=== PATIENT | female | born 1985 | race Caucasian/White ===

== ENCOUNTER 2023-05-06 11:17 | Emergency (ER) | payer MEDICAID, SELFPAY ==
--- NOTE | ~2023-05-06 | XR_ITS ---
EXAMINATION: XR LUMBOSACRAL SPINE CLINICAL INFORMATION: Midline lumbar pain with tender to palpate.. COMPARISON: None available. TECHNIQUE: Three views of the lumbosacral spine. FINDINGS: There is normal lumbar lordosis. The vertebral heights, alignment and disc heights are normal. Is no visible acute fracture, dislocation or subluxation seen. No bony erosive changes. The soft tissues are normal. SI joints are normal. XR/XR lumbar spine 2-3V IMPRESSION: Unremarkable lumbar spine exam.
[2023-05-06 11:27] VITALS: BP 123/76; PULSE 62; RESP 18; TEMP 36; O2SAT 98; BMI 36.5
--- NOTE | 2023-05-06 11:27 | ED_ITS ---
HPI - General Adult General Chief complaint: Back Pain/Injury Stated complaint: back pain Time Seen by Provider: 05/06/23 11:52 Source: patient Mode of arrival: ambulatory Limitations: no limitations History of Present Illness HPI narrative: 38 year old female with pmhx of IVDU on methadone presents to the ED today for evaluation of low back pain x4 days. Reports history of chronic low back pain. Reports worsening pain to her lower back over the last 4 days with radiation upward. Pain is worse with bending forward. Denies recent injury or trauma to the back. Denies fever, chills, chest pain or shortness of breath, nausea/vomiting, numbness/tingling/weakness of the lower extremities, saddle anesthesia, bowel or bladder incontinence or retention, dysuria, hematuria, abdominal pain or flank pain. Denies chronic steroid use. Related Data Previous Rx's Medication Instructions Recorded cyclobenzaprine 5 mg tablet 5 mg PO BEDTIME PRN muscle spasm 05/06/23 #7 tabs lidocaine 5 % topical patch 1 patch topical DAILY #15 ea 05/06/23 (Lidoderm) naproxen 500 mg tablet 500 mg PO Q8-12H PRN pain (scale 05/06/23 score 4-6) #14 tabs Allergies Allergy/AdvReac Type Severity Reaction Status Date / Time aripiprazole [From ABILIFY] Allergy Unknown SWELLING Verified 05/06/23 11:27 lamotrigine [From LAMICTAL] Allergy Unknown UNKNOWN Verified 05/06/23 11:27 Review of Systems Review of Systems: Constitutional: No fever, chills, fatigue, night sweats, weight changes ENT/Mouth: No ear pain, hearing loss, nasal congestion, sinus pain, rhinorrhea, sore throat Eyes: No eye pain, swelling, redness, vision changes, discharge Cardio: No chest pain, palpitations, FIGUEROA, orthopnea, peripheral edema Pulm: No SOB, cough, sputum, wheezing, dyspnea, hemoptysis GI: No nausea, vomiting, hematemesis, abdominal pain, diarrhea, constipation, hematochezia, melena : No irregular bleeding, dysuria, frequency, urgency, hesitancy, hematuria, flank pain, urinary flow changes, urinary incontinence or retention MSK: +back pain, No neck pain, joint pain, myalgias Skin: No lesions, rashes Neuro: No weakness, numbness, paresthesias, LOC, dizziness, headache All other systems reviewed and are negative. [facility], [facility] Past Medical History Attestation statement: The following information was validated with the patient. Source: old records reviewed and nursing notes reviewed Social History Social History Unable to assess alcohol history related to: Unknown Use of substances other than those prescribed or required for medical reasons: Unknown Advance Directives: No Advance Directives Information Provided: No Physical Exam ED Vital Signs: Vital Signs - 24 hr 05/06/23 11:27 Temperature 96.8 F Pulse Rate 62 Respiratory Rate 18 Blood Pressure 123/76 Pulse Oximetry 98 Oxygen Delivery Method Room Air BMI result Body Mass Index 36.5 Vital signs stable, afebrile Const General: cooperative, healthy appearing, comfortable, no acute distress, alert and awake Nutritional Appearance: overweight Orientation/consciousness: patient oriented x3 Limitations: no limitations HENMT Head: Yes normal to inspection Ears: hearing grossly normal bilaterally Eyes General: appearance normal, both eyes and all related structures Conjunctivae: conjunctivae normal Sclerae: sclerae normal Pupils: Equal, round and reactive pupils present EOM: EOMs intact bilaterally Neck Neck: Yes normal visual inspection, Yes full ROM and Yes no lymphadenopathy Resp Effort & Inspection: normal respiratory effort Auscultation: clear to auscultation bilaterally Cardio Rate: regular rate Rhythm: regular rhythm Peripheral pulses: radial pulses present, posterior tibial pulses present and dorsalis pedis present GI Inspection: Yes normal to inspection Palpation (GI): Soft to palpation and nontender General: Yes no CVA tenderness Back/Spine/Pelvis Other: No overlying skin changes. No palpable warmth or masses. No midline spinous tenderness. + right lumbar paraspinal muscle tenderness to palpation. No step off deformity. Back: no CVA tenderness Skin General skin exam: no rashes or lesions noted Neuro Other: Strength 5/5 intact throughout.? No saddle anesthesia.? Sensation intact to light touch.?NV intact distally.? General: patient oriented x3, gait normal and moves all extremities Cranial nerves: Yes Equal, round and reactive pupils present Gait exam (Neuro): Normal gait present Motor exam (neuro): 5/5 motor strength present throughout Deep tendon reflexes (DTR's): Right patellar reflex intensity grade: 2+ and Left patellar reflex intensity grade: 2+ Pupils: Normal pupillary reactivity/response: bilateral Extrem General: Yes normal to inspection and Yes full ROM Course Course Course Narrative: RME- 38 year old female presents for evaluation of lower back pain. She denies any specific injury. Reports a history of back pain. Her pain is worse with movement. She has been taking Ibuprofen without relief. She cannot take acetaminophen due to a history of Hepatitis C. Plan for x-ray of lumbar spine as patient denies ever having had one done. Reevaluation(s) Reevaluation #1: 1533-- Patient reports pain improvement with Lidoderm patch and muscle relaxer. X-ray lumbar spine without acute fracture or subluxation. Patient's symptoms are likely due to an MSK sprain/strain. Will send her home with naproxen, Lidoderm patch and Flexeril. Patient has remained stable throughout ED visit today. Discussed strict return precautions. All questions answered at this time. She is currently on the phone with her ride as she received Flexeril and will not be able to drive home today. Patient is agreeable with disposition and stable for discharge. Medications Administered Discontinued Medications Generic Name Dose Route Start Last Admin Trade Name Freq PRN Reason Stop Dose Admin Cyclobenzaprine HCl 5 mg 05/06/23 12:42 05/06/23 12:56 Cyclobenzaprine Hcl 5 Mg Tablet PO 05/06/23 12:43 5 mg ONCE ONE Administration Ketorolac Tromethamine 60 mg 05/06/23 12:42 05/06/23 12:56 Ketorolac Tromethamine 60 Mg/2 Ml Vial IM 05/06/23 12:43 60 mg ONCE ONE Administration Lidocaine 1 patch 05/06/23 12:42 05/06/23 12:56 Lidocaine 4 % Patch Adh..Patch TRANSDERMA 05/06/23 12:43 1 patch ONCE ONE Administration Protocol Medical Decision Making Medical Decision Making MDM Narrative: 38 year old female with pmhx of IVDU on methadone presents to the ED today for evaluation of low back pain x4 days. Vital signs are stable, afebrile, not tachycardic. Patient is nontoxic appearing and in no acute distress. Lungs CTA bilaterally. There is no midline spinous tenderness or step-off deformity. There is right lumbar paraspinal muscle tenderness to palpation. No overlying erythema, warmth, masses. Exam nonfocal. Neurovascularly intact distally. Patellar tendon reflexes 2+ bilaterally. sensation intact to light touch throughout. Clinical concern for MSK sprain/strain, fracture, subluxation, disc herniation. Unlikely epidural abscess, cauda equina, cord compression, neurovascular compromise, trauma, ACS, dissection, nephrolithiasis. Differential Diagnosis Differential Diagnoses: The differential diagnosis associated with the presentation includes as above. Admission/Observation not indicated. Independent Interpretation I performed an independent interpretation of an: Plain X-Ray Interpretation: X-ray lumbar spine without acute fracture dislocation, agree with radiologist's interpretation. Radiology Impression Discussion of test interpretation with radiology: I have reviewed the radiologist's reading. Radiologist Impression: XR lumbar spine 2-3V IMPRESSION: Unremarkable lumbar spine exam. External Record Review External record reviewed: Inpatient record Tests considered The following testing was considered but not selected: Considered obtaining CT lumbar spine however there is no point tenderness over the midline spine, no palpable warmth or mass, patient is afebrile, not tachycardic, epidural abscess unlikely. Prescription Management I considered prescription management with: Pain Medication and Other (Muscle relaxer) Chronic Conditions Patient?s care impacted by: Other (IV drug use) Social Determinants Patient?s care significantly limited by Social Determinants of Health including: Other Social Determinant of Health Critical Care Time Critical Care Time Critical Care Time: No Discharge Plan Discharge Clinical Impression: Strain of lumbar region Patient Disposition: Home, Self-Care Instructions: Muscle Strain (ED), Back Pain (ED) Additional Instructions: The xray of your low back did not show acute fracture. Your pain is likely musculoskeletal. Avoid bending, lifting, or twisting. Use ice several times per day for 20 minutes at a time for the next 48 hours and then change to heat. Flexeril is a muscle relaxer. Take this at night as it makes you drowsy. Do not drive, drink alcohol, or operate machinery while taking it. Naproxen is an anti-inflammatory / pain medication. Take with food. Do not take this with Ibuprofen or other NSAIDs as this may cause increased risk of GI bleed. Lidoderm patches are numbing patches. Apply to painful areas. In addition you may take Tylenol at home. Follow up with your primary care provider as needed If your pain worsens, if you develop new numbness, tingling, weakness, loss of bowel or bladder function call 911 or return to the ER immediately for evaluati on. Prescriptions: New cyclobenzaprine 5 mg tablet 5 mg PO BEDTIME PRN (Reason: muscle spasm) Qty: 7 0RF lidocaine [Lidoderm] 5 % adhesive patch,medicated 1 patch topical DAILY Qty: 15 0RF Rx Instructions: leave on most painful area for up to 12 hrs naproxen 500 mg tablet 500 mg PO Q8-12H PRN (Reason: pain (scale score 4-6)) Qty: 14 0RF Referrals: Physician,Unknown J [Primary Care Provider] - Stand Alone Forms: Work/School Release Interventions: ED Discharge Assessment Last Done: 05/06/23 15:45 Discharge Date/Time: 05/06/23 15:46
--- OUTSIDE RECORDS SUMMARY | 2023-05-06 11:45 | XMS_ITS | Continuity of Care Document ---
Author Name Unknown Organization [facility] Address [address] [place] [id number]- Care Team Providers Care Regional Planner Name Role Phone Estelita Lombardi MD, Colt Primary Care Phys [facility] Encounter [facility] [place] Date(s): 09/10/19 - 09/17/[address] [address]- [facility] Attending Physician: Ebony Mayorga DO Admitting Physician: Farzaneh Bejarano CNM Referring Physician: Colt Barrera MD Allergies, Adverse Reactions, Alerts Substance Reaction Severity Status Fish Rash Persistent Moderate Active Abilify Active LaMICtal Active Immunizations Given and Recorded Vaccine Date Status Refusal Reason influenza virus vaccine, inactivated 07/04/19 Give n Not Given Vaccine Date Status Refusal Reason influenza virus vaccine, inactivated 03/07/14 Not Given Patient Refuses pneumococcal 23-valent vaccine 09/13/17 Not Given Parent Or Guardian Refuses pneumococcal 23-valent vaccine 03/07/14 Not Given Patient Refuses Medications aspirin 81 mg oral tablet See Instructions, 2 tablet By Mouth Daily at bedtime, # 60 tablet, 3 Refills, Maintenance, 09/09/2012:11:00 EDT, [id number], 163, cm, 09/10/19 13:04:00 EDT, Height, 84.5, kg,06/19/19 14:03:00 EST, Dry Weight Start Date: 09/10/19 Status: Ordered Classic oral tablet 1 tablet, By Mouth, Daily, # 30 tablet, 0 Refills, Maintenance, 04/17/19 19:16:18 EST Start Date: 04/17/19 Status: Ordered Colace sodium 100 mg oral capsule 100 mg, 1, capsule, By Mouth, 2 times a day, PRN, # 180 capsule, Refills 3, Tot. Refills 3, Maintenance, for constipation, 09/04/19 13:06:00 EDT, Route to Pharmacy Electronically, [facility]-[id number], 163, cm, 08/13/19 14:46:00 EDT, Hei... Start Date: 09/04/19 Status: Ordered Docusate 0 Refills, Maintenance, 09/04/18 18:15:51 EDT Start Date: 09/04/18 Status: Ordered docusate sodium 100 mg oral tablet 1 tablet = 100 mg, By Mouth, 2 times a day, PRN for constipation, # 60 tablet, 0 Refills, Maintenance, 07/04/19 16:19:00 EST, Tablet, [facility] #[id number], 163, cm, 07/04/19 15:29:00 EST, Height, 84.5, kg, 06/19/19 14:03:00 EST, Dry Weight Start Date: 07/04/19 Status: Ordered Macrobid macrocrystals-monohydrate 100 mg oral capsule 1 capsule = 100 mg, By Mouth, 2 times a day, for 14 days, # 28 capsule, 0 Refills, Acute 09/18/19 13:34:00 EDT, 09/04/19 13:34:00 EDT, Capsule, [facility]-[id number], 163, cm, 08/13/19 14:46:00 EDT, Height, 84.5, kg, 06/19/19 14:03:00 EST... Start Date: 09/04/19 Stop Date: 09/18/19 Status: Ordered Metamucil 3.4 gm/5.2 gm oral powder for reconstitution = 3.4 Gm, By Mouth, 3 times a day, PRN as needed for constipation, # 1,042 Gm, 1 Refills, Maintenance, 07/04/19 16:20:00 EST, REC Powder, [facility] #[id number], 163, cm, 07/04/19 15:29:00 EST, Height, 84.5, kg, 06/19/19 14:03:00 EST, Dry Weight Start Date: 07/04/19 Status: Ordered Methadone = 105 mg, By Mouth, Daily, 0 Refills, Maintenance, 09/13/18 15:28:27 EDT, Tablet Start Date: 09/13/18 Status: Ordered prazosin 5 mg oral capsule 5 mg, 1, capsule, By Mouth, Daily at bedtime, # 30 capsule, Refills 0, Tot. Refills 0, Maintenance,05/16/19 9:07:00 EST, Route to Pharmacy Electronically, [facility] #[id number], 163, cm, 05/16/19 8:38:00 EST, Height, 82.3, kg, 05/05/19 16:01:00... Start Date: 05/16/19 Stop Date: 06/15/19 Status: Ordered SEROquel 100 mg oral tablet 100 mg, 1, tablet, By Mouth, 2 times a day, In morning and at 5 p.m., # 60 tablet, Refills 0, Tot. Refills 0, Maintenance, 05/31/19 16:04:00 EST, Route to Pharmacy Electronically, [facility][id number], 162, cm, 05/21/19 12:08:00 EST, Height, 82.... Start Date: 05/31/19 Stop Date: 06/30/19 Status: Ordered SEROquel 200 mg oral tablet 200 mg, 1, tablet, By Mouth, Daily at bedtime, # 30 tablet, Refills 0, Tot. Refills 0, Maintenance,05/31/19 16:05:00 EST, Route to Pharmacy Electronically, [facility] #[id number], 162, cm, 05/21/19 12:08:00 EST, Height, 82.5, kg, 05/21/19 12:08:0... Start Date: 05/31/19 Stop Date: 06/30/19 Status: Ordered Problem List Condition Effective Dates Status Health Status Inform ant Bipolar disorder(Confirmed) Active Constipation(Confirmed) Active H/O Depression(Confirmed) Active Fibromyalgia(Confirmed) Active History of posttraumatic str ess disorder (PTSD)(Confirmed) Active History of varicella as a child(Confirmed) Active Methadone maintenance treatm ent affecting (Confirmed) 1 Active Normal vaginal Papanicolaou smear(Confirmed) 2014 Active Opiate dependence(Confirmed) 2 Active (Confirmed) Active Suicidal ideation(Confirmed) 3 Active Hepatitis C(Confirmed) Active 1Pt currently in treatment staying at [facility] and has been placed on Methadone 105mg daily. 2Hx of multiple admissions for detox/substance abuse 3Hx of self-harming behaviors Vital Signs Most recent to oldest [Reference Range]: 1 Height 163 cm (09/10/19 1:04 PM) Social History Social History Type Response Smoking Status Current every day dayne guzman entered on: 03/03/14 Sex Female
--- OUTSIDE RECORDS SUMMARY | 2023-05-06 11:45 | XMS_ITS | Continuity of Care Document ---
Author Name Unknown Organization [facility] Address [address] [place] [id number]- Care Team Providers Care Telemarketing Sales Representative Name Role Phone Estelita Lombardi MD, Col[facility] [place] [place] Date(s): 01/20/23 - 01/20/[address] [address]- Discharge Disposition: A-D/C Walkout Attending Physician: Not on Staff, Attending MD Admitting Physician: Not on Staff, Admitting MD Referring Physician: Not on Staff, Referring MD Allergies, Adverse Reactions, Alerts Substance Reaction Severity Status Fish Rash Persistent Moderate Active Abilify Active LaMICtal Active Immunizations Given and Recorded Vaccine Date Status Refusal Reason tetanus/diphtheria/pertussis, acel(Tdap) 10/11/19 Given influenza virus vaccine, inactivated 07/04/19 Give n Medications acetaminophen 325 mg oral tablet 650 mg, By Mouth, Every 4 hours, PRN, Patient should only receive a total of 650mg of Acetaminophenevery 4 hours., # 30 tablet, Refills 0, Tot. Refills 0, Maintenance, Pain , Mild, 11/24/19 9:50:00 EDT, Route to Pharmacy Electronically, [facility]... Start Date: 11/24/19 Status: Ordered aspirin 81 mg oral tablet See Instructions, 2 tablet By Mouth Daily at bedtime, # 60 tablet, 3 Refills, Maintenance, 09/09/2012:11:00 EDT, [facility]-[id number], 163, cm, 09/10/19 13:04:00 EDT, Height, 84.5, [...] 09/04/19 13:06:00 EDT, Route to Pharmacy Electronically, [facility], 163, cm, 08/13/19 14:46:00 EDT, Hei... Start Date: 09/04/19 Status: Ordered Docusate 0 Refills, Maintenance, 09/04/18 18:15:51 EDT Start Date: 09/04/18 Status: Ordered docusate sodium 100 mg oral tablet 1 tablet = 100 mg, By Mouth, 2 times a day, PRN for constipation, # 60 tablet, 0 Refills, Maintenance, 07/04/19 16:19:00 EST, [facility], [id number], 163, cm, 07/04/19 15:29:00 EST, Height, 84.5, kg, 06/19/19 14:03:00 EST, Dry Weight Start Date: 07/04/19 Status: Ordered doxycycline monohydrate 100 mg oral capsule 1 capsule = 100 mg, By Mouth, Every 12 hours, for 10 days, # 20 capsule, 0 Refills, Acute 01/28/23 13:45:00 EDT, 01/18/23 13:45:00 EDT, Capsule, [facility] #[id number], Partial fill upon patientrequest if the prescription is for a schedule II op... Start Date: 01/18/23 Stop Date: 01/28/23 Status: Ordered ibuprofen 400 mg oral tablet 800 mg, 2, tablet, By Mouth, 3 times a day, PRN, # 120 tablet, Refills 0, Tot. Refills 0, Maintenance, for fever, 01/18/23 13:46:00 EDT, Route to Pharmacy Electronically, [facility] #[id number],Partial fill upon patient request if the prescripti... Start Date: 01/18/23 Status: Ordered ibuprofen 800 mg oral tablet 800 mg, 1, tablet, By Mouth, Every 8 hours, PRN, Patient should only receive a total of 800mg of Ibuprofen every 8 hours., # 30 tablet, Refills 0, Tot. Refills 0, Maintenance, Pain , Moderate, 11/24/19 9:50:00 EDT, Route to Pharmacy Electronically, [facility]... Start Date: 11/24/19 Status: Ordered Metamucil 3.4 gm/5.2 gm oral powder for reconstitution = 3.4 Gm, By Mouth, 3 times a day, PRN as needed for constipation, # 1,042 Gm, 1 Refills, Maintenance, 07/04/19 16:20:00 EST, REC Powder, [facility] #[id number], 163, cm, 07/04/19 15:29:00 EST, Height, 84.5, kg, 06/19/19 14:03:00 EST, Dry Weight Start Date: 07/04/19 Status: Ordered Methadone = 175 mg, By Mouth, Daily, 0 Refills, Maintenance, 09/13/18 15:28:27 EDT, Tablet Start Date: 09/13/18 Status: Ordered Ortho Micronor 0.35 mg oral tablet 1 tablet = 0.35 mg, By Mouth, Daily, # 28 tablet, 2 Refills, Maintenance, 11/24/19 8:56:00 EDT, Tablet, [facility] #[id number], 162, cm, 11/23/19 4:48:00 EDT, Height, 80.3, kg, 11/22/19 4:59:00 EDT, Dry Weight Start Date: 11/24/19 Status: Ordered prazosin 5 mg oral capsule 5 mg, 1, capsule, By Mouth, Daily at bedtime, # 30 capsule, Refills 0, Tot. Refills 0, Maintenance,05/16/19 9:07:00 EST, Route to Pharmacy Electronically, [facility] #[id number], 163, cm, 05/16/19 8:38:00 EST, Height, 82.3, kg, 05/05/19 16:01:00... Start Date: 05/16/19 Stop Date: 06/15/19 Status: Ordered SEROquel 100 mg oral tablet 100 mg, 1, tablet, By Mouth, 2 times a day, In morning and at 5 p.m., # 60 tablet, Refills 0, Tot. Refills 0, Maintenance, 05/31/19 16:04:00 EST, Route to Pharmacy Electronically, [facility][id number], 162, cm, 05/21/19 12:08:00 EST, Height, 82.... Start Date: 05/31/19 Stop Date: 06/30/19 Status: Ordered SEROquel 200 mg oral tablet 200 mg, 1, tablet, By Mouth, Daily at bedtime, # 30 tablet, Refills 0, Tot. Refills 0, Maintenance,05/31/19 16:05:00 EST, [id number], 162, cm, 05/21/19 12:08:00 EST, Height, 82.5, kg, 05/21/19 12:08:0... Start Date: 05/31/19 Stop Date: 06/30/19 Status: Ordered Problem List Condition Confirmation Course Effective Dates Status H ealth Status Informant Bipolar disorder Confirmed Active Constipation Confirmed Active H/O Depression Confirmed Active History of posttraumatic stress disorder (PTSD) Confirmed Active History of varicella as a child Confirmed Active Methadone maintenance treatment affecting 1 Confirmed Active Normal vaginal Papanicolaou smear Confirmed 2015 Active Opiate dependence 2 Confirmed Active Suicidal ideation 3 Confirmed Active Hepatitis C Confirmed Active 1Pt currently in treatment staying at [facility] and has been placed on Methadone 105mg daily. 2Hx of multiple admissions for detox/substance abuse 3Hx of self-harming behaviors Vital Signs Most recent to oldest [Reference Range]: 1 2 Height 163 cm (01/20/23 8:44 AM) Oxygen Saturation [94-100 %] 97 % (01/20/23 10:45 AM) 99 % (01/20/23 8:44 AM) Pulse Rate [55-90 bpm] 77 bpm (01/20/23 10:45 AM) 86 bpm (01/20/23 8:44 AM) Blood Pressure [90-138/55-84 mm Hg] 130/ 87mm Hg (01/20/23 10:45 AM) 132/103mm Hg (01/20/23 8:44 AM) Respiratory Rate [16-30 br/min] 16 br/mi n (01/20/23 10:45 AM) 16 br/min (01/20/23 8:44 AM) Temperature [96.8-100.4 DegF] 98.1 DegF (01/20/23 10:45 AM) 98.1 DegF (01/20/23 8:44 AM) Mode of Delivery (Oxygen) Room air (01/20/23 10:45 AM) Room air (01/20/23 8:44 AM) Blood pressure sites Arm, left (01/20/23 10:45 AM) Arm, left (01/20/23 8:44 AM) Temperature Route Oral (01/20/23 10:45 AM) Oral (01/20/23 8:44 AM) Dry Weight 100 kg (01/20/23 8:44 AM) Dry Weight Obtained Via Patient/family s tated (01/20/23 8:44 AM) Social History Social History Type Response Smoking Status Current every day dayne megan entered on: 03/03/14 Sex Female Patient Care team information Care Team Personnel Name: Colt Barrera MD Position: [facility] Outreach Member Role: PCP Address: Address: [address] [place] [id number]- Name: Ramona Boyce RN Position: [facility] RN Member Role: Primary Care Nurse Name: Serenity Mina RN Position: [facility] RN Member Role: Primary Care Nurse Name: Jd Calles RN Position: [facility] SN RN Member Role: Primary Care Nurse Name: Arline Jordan RN Position: S RN Member Role: Primary Care Nurse Name: Marcelo FREEMAN Gifty Position: [facility] RN Member Role: Primary Care Nurse Name: Erasmo Ponce NP Position: Reference Physician Member Role: Primary Care Nurse Address: Address: [address] [facility] [address] Clinical [facility] [place] [address]- [place] Name: Sharon Matthews RN Position: [facility] OB RN Member Role: Primary Care Nurse Name: Roula Coppola RN Position: [facility] SN RN Member Role: Primary Care Nurse Name: Yuni Duenas RN Position: S RN Member Role: Primary Care Nurse Care Team Related Persons Name: TALON CHAPA Address: home [address] [place] [address] Name: WILLIAM TORRES Address: home [address] [place] [address] Name: MALISSA TORRES Address: [employer] Address: home [address] [address] [place] [address] [place] Name: ARETHA MCCARTHY Address: home [address] [place] [address]
--- OUTSIDE RECORDS SUMMARY | 2023-05-06 11:45 | XMS_ITS | Continuity of Care Document ---
Author Name Unknown Organization [facility] ter Address [address] [place] [id number]- Care Team Providers Care Production Engineer Name Role Phone Not on Staff, PCP Primary Care Physician Unavail able Encounter [facility] Date(s): 06/19/19 - 06/19/[address] [address]- [facility] Discharge Disposition: A-D/C Home Attending Physician: Concepcion Marie MD Admitting Physician: Concepcion Marie MD Referring Physician: Concepcion Marie MD Allergies, Adverse Reactions, Alerts Substance Reaction Severity Status Fish Rash Persistent Moderate Active Abilify Active LaMICtal Active Immunizations Not Given Vaccine Date Status Refusal Reason pneumococcal 23-valent vaccine 09/13/17 Not Given Parent Or Guardian Refuses pneumococcal 23-valent vaccine 03/07/14 Not Given Patient Refuses influenza virus vaccine, inactivated 03/07/14 Not Given Patient Refuses Medications Classic oral tablet 1 tablet, By Mouth, Daily, # 30 tablet, 0 Refills, Maintenance, 04/17/19 19:16:18 EST Start Date: 04/17/19 Status: Ordered Docusate 0 Refills, Maintenance, 09/04/18 18:15:51 EDT Start Date: 09/04/18 Status: Ordered Methadone = 105 mg, By Mouth, Daily, 0 Refills, Maintenance, 09/13/18 15:28:27 EDT, Tablet Start Date: 09/13/18 Status: Ordered prazosin 5 mg oral capsule 5 mg, 1, capsule, By Mouth, Daily at bedtime, # 30 capsule, Refills 0, Tot. Refills 0, Maintenance,05/16/19 9:07:00 EST, Route to Pharmacy Electronically, [facility] #[id number], 163, cm, 05/16/19 8:38:00 EST, Height, 82.3, kg, 05/05/19 16:01:00... Start Date: 05/16/19 Stop Date: 06/15/19 Status: Ordered SEROquel 100 mg oral tablet 100 mg, 1, tablet, By Mouth, 2 times a day, In morning and at 5 p.m., # 60 tablet, Refills 0, Tot. Refills 0, Maintenance, 05/31/19 16:04:00 EST, Route to Pharmacy Electronically, [facility]#[id number], 162, cm, 05/21/19 12:08:00 EST, Height, 82.... Start Date: 05/31/19 Stop Date: 06/30/19 Status: Ordered SEROquel 200 mg oral tablet 200 mg, 1, tablet, By Mouth, Daily at bedtime, # 30 tablet, Refills 0, Tot. Refills 0, Maintenance,05/31/19 16:05:00 EST, Route to Pharmacy Electronically, [facility] #[id number], 162, cm, 05/21/19 12:08:00 EST, Height, 82.5, [...] smear(Confirmed) 2014 Active Opiate dependence(Confirmed) 2 Active Suicidal ideation(Confirmed) 3 Active Hepatitis C(Confirmed) Active 1Pt currently in treatment staying at [facility] and has been placed on Methadone 105mg daily. 2Hx of multiple admissions for detox/substance abuse 3Hx of self-harming behaviors Results Orders for Microbiology Reports Name Date Urine Culture (URINE CULTURE) 06/19/19 Microbiology Reports TEST:Urine Culture STATUS:Unauthenticated BODY SITE: SOURCE:URINE COLLECTED DATE/TIME:06/19/19 2:20 PM Urine Culture SPECIMEN DESCRIPTION : URINE CLEAN CATCH/MIDSTREAM SPECIAL REQUESTS : NONE Reflexed from [id number] REPORT STATUS : PRELIMINARY REPORT Vital Signs Most recent to oldest [Reference Range]: 1 Height 163 cm (06/19/19 2:03 PM) Weight 84.5 kg (06/19/19 2:03 PM) Pulse Rate [55-90 bpm] 95 bpm *H* (06/19/19 2:03 PM) Body Mass Index [18.5-24.99] 31.8 *>HHI* (06/19/19 2:03 PM) Blood Pressure [90-138/55-84 mm Hg] 122/ 70mm Hg (06/19/19 2:03 PM) Respiratory Rate [16-30 br/min] 18 br/mi n (06/19/19 2:03 PM) Temperature [96.8-100.4 DegF] 98.4 DegF (06/19/19 2:03 PM) Blood pressure sites Arm, right (06/19/19 2:03 PM) Temperature Route Oral (06/19/19 2:03 PM) Dry Weight 84.5 kg (06/19/19 2:03 PM) Social History Social History Type Response Smoking Status Current every day dayne guzman entered on: 03/03/14 Sex Female
--- OUTSIDE RECORDS SUMMARY | 2023-05-06 11:45 | XMS_ITS | Continuity of Care Document ---
Author Name Unknown Organization [facility] ter Address [address] [place] [phone]- Care Team Providers Care Er Manager Name Role Phone Estelita Lombardi MD, Colt Primary Care Phys ician [place] [facility] [place] - 10/09/[address] [address]- Discharge Disposition: A-D/C Walkout Attending Physician: Not [...] vaccine 03/07/14 Not Given Patient Refuses Medications acetaminophen 325 mg oral tablet 650 mg, By Mouth, Every 4 hours, PRN, Patient should only receive a total of 650mg of Acetaminophenevery 4 hours., # 30 tablet, Refills 0, Tot. Refills 0, Maintenance, Pain , Mild, 11/24/19 9:50:00 EDT, Route to Pharmacy Electronically, [facility] Start Date: 11/24/19 Status: Ordered aspirin 81 mg oral tablet See Instructions, 2 tablet By Mouth Daily at bedtime, # 60 tablet, 3 Refills, Maintenance, 09/09/2012:11:00 EDT, [facility]-[id number], 163, cm, 09/10/19 13:04:00 EDT, Height, [...] 09/04/19 13:06:00 EDT, Route to Pharmacy Electronically, [facility], 163, cm, 08/13/19 14:46:00 EDT, Hei... Start Date: 09/04/19 Status: Ordered Docusate 0 Refills, Maintenance, 09/04/18 18:15:51 EDT Start Date: 09/04/18 Status: Ordered docusate sodium 100 mg oral tablet 1 tablet = 100 mg, By Mouth, 2 times a day, PRN for constipation, # 60 tablet, 0 Refills, Maintenance, 07/04/19 16:19:00 EST, Tablet, [facility] #[id number], 163, cm, 07/04/19 15:29:00 EST, Height, 84.5, kg, 06/19/19 14:03:00 EST, Dry Weight Start Date: 07/04/19 Status: Ordered ibuprofen 800 mg oral tablet [...] Refills, Maintenance, 07/04/19 16:20:00 EST, REC Powder, [facility] #[id number], 163, cm, 07/04/19 15:29:00 EST, Height, 84.5, kg, 06/19/19 14:03:00 EST, Dry Weight Start Date: 07/04/19 Status: Ordered Methadone = 175 mg, By Mouth, Daily, 0 Refills, Maintenance, 09/13/18 15:28:27 EDT, Tablet Start Date: 09/13/18 Status: Ordered Ortho Micronor 0.35 mg oral tablet 1 tablet = 0.35 mg, By Mouth, Daily, # 28 tablet, 2 Refills, Maintenance, 11/24/19 8:56:00 EDT, Tablet, [facility] #[id number], 162, cm, 11/23/19 4:48:00 EDT, Height, 80.3, kg, 11/22/19 4:59:00 EDT, Dry Weight Start Date: 11/24/19 Status: Ordered prazosin 5 mg oral capsule 5 mg, 1, capsule, By Mouth, Daily at bedtime, # 30 capsule, Refills 0, Tot. Refills 0, Maintenance,05/16/19 9:07:00 EST, Route to Pharmacy Electronically, [facility] #[id number], 163, cm, 05/16/19 8:38:00 EST, Height, 82.3, kg, 05/05/19 16:01:00... Start Date: 05/16/19 Stop Date: 06/15/19 Status: Ordered SEROquel 100 mg oral tablet 100 mg, 1, tablet, By Mouth, 2 times a day, In morning and at 5 p.m., # 60 tablet, Refills 0, Tot. Refills 0, Maintenance, 05/31/19 16:04:00 EST, Route to Pharmacy Electronically, [facility]#[id number], 162, cm, 05/21/19 12:08:00 EST, Height, 82.... Start Date: 05/31/19 Stop Date: 06/30/19 Status: Ordered SEROquel 200 mg oral tablet 200 mg, 1, tablet, By Mouth, Daily at bedtime, # 30 tablet, Refills 0, Tot. Refills 0, Maintenance,05/31/19 16:05:00 EST, Route to Pharmacy Electronically, [facility] #[id number], 162, cm, 05/21/19 12:08:00 EST, Height, 82.5, kg, 05/21/19 12:08:0... Start Date: 05/31/19 Stop Date: 06/30/19 Status: Ordered Problem List Condition Effective Dates Status Health Status Inform ant Bipolar disorder(Confirmed) Active Constipation(Confirmed) Active H/O Depression(Confirmed) Active History of posttraumatic str ess disorder (PTSD)(Confirmed) Active History of varicella as a child(Confirmed) Active Methadone maintenance treatm ent affecting (Confirmed) 1 Active Normal vaginal Papanicolaou smear(Confirmed) 2014 Active Opiate dependence(Confirmed) 2 Active Suicidal ideation(Confirmed) 3 Active Hepatitis C(Confirmed) Active 1Pt currently in treatment staying at [facility] and has been placed on Methadone 105mg daily. 2Hx of multiple admissions for detox/substance abuse 3Hx of self-harming behaviors Vital Signs Most recent to oldest [Reference Range]: 1 2 Oxygen Saturation [94-100 %] 100 % (10/08/20 9:28 PM) 100 % (10/08/20 9:21 PM) Pulse Rate [55-90 bpm] 80 bpm (10/08/20 9:28 PM) 85 bpm (10/08/20 9:21 PM) Blood Pressure [90-138/55-84 mm Hg] 137/ 92mm Hg (10/08/20 9:28 PM) Respiratory Rate [16-30 br/min] 16 br/mi n (10/08/20 9:28 PM) Temperature [96.8-100.4 DegF] 98.3 DegF (10/08/20 9:28 PM) Mode of Delivery (Oxygen) Room air (10/08/20 9:28 PM) Room air (10/08/20 9:21 PM) Blood pressure sites Arm, left (10/08/20 9:28 PM) Temperature Route Oral (10/08/20 9:28 PM) Social History Social History Type Response Smoking Status Current every day dayne guzman entered on: 03/03/14 Sex Female
--- OUTSIDE RECORDS SUMMARY | 2023-05-06 11:45 | XMS_ITS | Continuity of Care Document ---
Author Name Unknown Organization [facility] Address [address] [place] [id number]- Care Team Providers Care Spar Cap Beveler Name Role Phone Estelita Lombardi MD, Colt Primary Care Phys ician Encounter [facility] [place] Date(s): 01/18/23 - 01/18/[address] [address]- Discharge Disposition: A-D/C Home Attending Physician: Gilbert Max MD Admitting Physician: Gilbert Max MD Referring Physician: Not on Staff, Referring [...] 11/24/19 9:50:00 EDT, Route to Pharmacy Electronically, [facility]... Start Date: 11/24/19 Status: Ordered aspirin 81 mg oral tablet See Instructions, 2 tablet By Mouth Daily at bedtime, # 60 tablet, 3 Refills, Maintenance, 09/09/2012:11:00 EDT, [facility]-[id number], 163, cm, 09/10/19 13:04:00 EDT, Height, 84.5, [...] 09/04/19 13:06:00 EDT, Route to Pharmacy Electronically, [facility]201[facility], 163, cm, 08/13/19 14:46:00 EDT, Hei... Start Date: 09/04/19 Status: Ordered Docusate 0 Refills, Maintenance, 09/04/18 18:15:51 EDT Start Date: 09/04/18 Status: Ordered docusate sodium 100 mg oral tablet 1 tablet = 100 mg, By Mouth, 2 times a day, PRN for constipation, # 60 tablet, 0 Refills, Maintenance, 07/04/19 16:19:00 EST, Tablet, [facility] #[id number], 163, cm, 07/04/19 15:29:00 EST, Height, 84.5, kg, 06/19/19 14:03:00 EST, Dry Weight Start Date: 07/04/19 Status: Ordered doxycycline monohydrate 100 mg oral capsule 1 capsule = 100 mg, By Mouth, Every 12 hours, for 10 days, # 20 capsule, 0 Refills, Acute 01/28/23 13:45:00 EDT, 01/18/23 13:45:00 EDT, Capsule, [facility] #[id number], Partial fill upon patientrequest if the prescription is for a schedule II op... Start Date: 01/18/23 Stop Date: 01/28/23 Status: Ordered ibuprofen 400 mg oral tablet 800 mg, 2, tablet, By Mouth, 3 times a day, PRN, # 120 tablet, Refills 0, Tot. Refills 0, Maintenance, for fever, 01/18/23 13:46:00 EDT, Route to Pharmacy Electronically, [facility] #[id number],Partial fill upon patient request if the prescripti... [...] Refills, Maintenance, 07/04/19 16:20:00 EST, REC Powder, [facility] #[id number], 163, cm, 07/04/19 15:29:00 EST, Height, 84.5, kg, 06/19/19 14:03:00 EST, Dry Weight Start Date: 07/04/19 Status: Ordered Methadone = 175 mg, By Mouth, Daily, 0 Refills, Maintenance, 09/13/18 15:28:27 EDT, Tablet Start Date: 09/13/18 Status: Ordered Ortho Micronor 0.35 mg oral tablet 1 tablet = 0.35 mg, By Mouth, Daily, # 28 tablet, 2 Refills, Maintenance, 11/24/19 8:56:00 EDT, Tablet, [facility] #[id number], 162, cm, 11/23/19 4:48:00 EDT, Height, 80.3, kg, 11/22/19 4:59:00 EDT, Dry Weight Start Date: 11/24/19 Status: Ordered prazosin 5 mg oral capsule 5 mg, 1, capsule, By Mouth, Daily at bedtime, # 30 capsule, Refills 0, Tot. Refills 0, Maintenance,05/16/19 9:07:00 EST, Route to Pharmacy Electronically, [facility] #[id number], 163, cm, 05/16/19 8:38:00 EST, Height, 82.3, kg, 05/05/19 16:01:00... Start Date: 05/16/19 Stop Date: 06/15/19 Status: Ordered SEROquel 100 mg oral tablet 100 mg, 1, tablet, By Mouth, 2 times a day, In morning and at 5 p.m., # 60 tablet, Refills 0, Tot. Refills 0, Maintenance, 05/31/19 16:04:00 EST, Route to Pharmacy Electronically, [facility]#[id number], 162, cm, 05/21/19 12:08:00 EST, Height, 82.... Start Date: 05/31/19 Stop Date: 06/30/19 Status: Ordered SEROquel 200 mg oral tablet 200 mg, 1, tablet, By Mouth, Daily at bedtime, # 30 tablet, Refills 0, Tot. Refills 0, Maintenance,05/31/19 16:05:00 EST, Route to Pharmacy Electronically, [facility] #[id number], 162, cm, 05/21/19 12:08:00 EST, Height, 82.5, [...] Active 1Pt currently in treatment staying at [facility] and has been placed on Methadone 105mg daily. 2Hx of multiple admissions for detox/substance abuse 3Hx of self-harming behaviors Vital Signs Most recent to oldest [Reference Range]: 1 2 Height 163 cm (01/18/23 2:33 PM) 163 cm (01/18/23 10:27 AM) Oxygen Saturation [94-100 %] 100 % (01/18/23 10:27 AM) Pulse Rate [55-90 bpm] 101 bpm *H* (01/18/23 10:27 AM) Blood Pressure [90-138/55-84 mm Hg] 123/ 84mm Hg (01/18/23 10:27 AM) Respiratory Rate [16-30 br/min] 18 br/mi n (01/18/23 10:27 AM) Temperature [96.8-100.4 DegF] 98.2 DegF (01/18/23 10:27 AM) Mode of Delivery (Oxygen) Room air (01/18/23 10:27 AM) Blood pressure sites Arm, left (01/18/23 10:27 AM) Temperature Route Oral (01/18/23 10:27 AM) Dry Weight 100 kg (01/18/23 2:33 PM) 100 kg (01/18/23 10:27 AM) Social History Social History Type Response Smoking Status Current every day dayne guzman entered on: 03/03/14 Sex Female Patient Care team information Care Team Personnel Name: Colt Barrera MD Position: [facility] Outreach Member Role: PCP Address: Address: [address] [place] [id number]- [place] Name: Ramona Boyce RN Position: [facility] RN Member Role: Primary Care Nurse Name: Serenity Mina RN Position: [facility] RN Member Role: Primary Care Nurse Name: Jd Calles RN Position: [facility] SN RN Member Role: Primary Care Nurse Name: Arline Jordan RN Position: [facility] RN Member Role: Primary Care Nurse Name: Gifty Robertson RN Position: [facility] RN Member Role: Primary Care Nurse Name: Erasmo Ponce NP Position: Reference Physician Member Role: Primary Care Nurse Address: Address: [address] [place] [address] [address] [facility] [place] [address]- [place] Name: Sharon Matthews RN Position: [facility] OB RN Member Role: Primary Care Nurse Name: Roula Coppola RN Position: [facility] SN RN Member Role: Primary Care Nurse Name: Yuni Duenas RN Position: [facility] RN Member Role: Primary Care Nurse Name: Gilbert Max MD Position: [facility] ED Medicine MD Member Role: Admitting Physician Address: Address: [address] [facility] [place] [place] [address]- Care Team Related Persons Name: EDUARD TALON Address: home [address] [place] [address] Name: WILLIAM TORRES Address: home [address] [place] [address] Name: MALISSA TORRES Address: [employer] Address: home [address] [place] [address] [place] Name: ARETHA MCCARTHY Address: home [address] [place] [address]
--- OUTSIDE RECORDS SUMMARY | 2023-05-06 11:45 | XMS_ITS | Continuity of Care Document ---
Author Name Unknown Organization [facility] Address [address] [place] [address]- Care Team Providers Care Director Field Services Name Role Phone Estelita Lombardi MD, Colt Primary Care Phys ician Encounter [facility] [place] Date(s): 02/07/20 - 03/27/[address] [address]- Attending Physician: Not on Staff, Attending MD Referring Physician: Massimo MOSER, Enedina Munson Allergies, Adverse Reactions, Alerts Substance Reaction Severity [...] 11/24/19 9:50:00 EDT, Route to Pharmacy Electronically, [facility]... Start Date: 11/24/19 Status: Ordered aspirin 81 mg oral tablet See Instructions, 2 tablet By Mouth Daily at bedtime, # 60 tablet, 3 Refills, Maintenance, 09/09/2012:11:00 EDT, [facility]-[id number], 163, cm, 09/10/19 13:04:00 EDT, Height, [...] 09/04/19 13:06:00 EDT, Route to Pharmacy Electronically, [facility], 163, cm, 08/13/19 14:46:00 EDT, Hei... Start Date: 09/04/19 Status: Ordered Docusate 0 Refills, Maintenance, 09/04/18 18:15:51 EDT Start Date: 09/04/18 Status: Ordered docusate sodium 100 mg oral tablet 1 tablet = 100 mg, By Mouth, 2 times a day, PRN for constipation, # 60 tablet, 0 Refills, Maintenance, 07/04/19 16:19:00 EST, Tablet, [facility][id number], 163, cm, 07/04/19 15:29:00 EST, Height, 84.5, [...] Refills, Maintenance, 07/04/19 16:20:00 EST, REC Powder, [facility] #[id number], 163, cm, 07/04/19 15:29:00 EST, Height, 84.5, kg, 06/19/19 14:03:00 EST, Dry Weight Start Date: 07/04/19 Status: Ordered Methadone = 175 mg, By Mouth, Daily, 0 Refills, Maintenance, 09/13/18 15:28:27 EDT, Tablet Start Date: 09/13/18 Status: Ordered Ortho Micronor 0.35 mg oral tablet 1 tablet = 0.35 mg, By Mouth, Daily, # 28 tablet, 2 Refills, Maintenance, 11/24/19 8:56:00 EDT, Tablet, [facility] #[id number], 162, cm, 11/23/19 4:48:00 EDT, Height, 80.3, kg, 11/22/19 4:59:00 EDT, Dry Weight Start Date: 11/24/19 Status: Ordered prazosin 5 mg oral capsule 5 mg, 1, capsule, By Mouth, Daily at bedtime, # 30 capsule, Refills 0, Tot. Refills 0, Maintenance,05/16/19 9:07:00 EST, Route to Pharmacy Electronically, [facility] #[id number], 163, cm, 05/16/19 8:38:00 EST, Height, 82.3, kg, 05/05/19 16:01:00... Start Date: 05/16/19 Stop Date: 06/15/19 Status: Ordered SEROquel 100 mg oral tablet 100 mg, 1, tablet, By Mouth, 2 times a day, In morning and at 5 p.m., # 60 tablet, Refills 0, Tot. Refills 0, Maintenance, 05/31/19 16:04:00 EST, Route to Pharmacy Electronically, [facility]#[id number], 162, cm, 05/21/19 12:08:00 EST, Height, 82.... Start Date: 05/31/19 Stop Date: 06/30/19 Status: Ordered SEROquel 200 mg oral tablet 200 mg, 1, tablet, By Mouth, Daily at bedtime, # 30 tablet, Refills 0, Tot. Refills 0, Maintenance,05/31/19 16:05:00 EST, Route to Pharmacy Electronically, [facility] #[id number], 162, cm, 05/21/19 12:08:00 EST, Height, 82.5, [...] Active 1Pt currently in treatment staying at [facility] and has been placed on Methadone 105mg daily. 2Hx of multiple admissions for detox/substance abuse 3Hx of self-harming behaviors Social History Social History Type Response Smoking Status Current every day dayne guzman entered on: 03/03/14 Sex Female
--- OUTSIDE RECORDS SUMMARY | 2023-05-06 11:45 | XMS_ITS | Continuity of Care Document ---
Author Name Unknown Organization [facility] ter Address [address] [place] [id number]- Care Team Providers Care Toll Transmission Worker Name Role Phone Not on Staff, PCP Primary Care Physician Unavail able Encounter [facility] Date(s): 05/21/19 - 05/21/[address] [address]- [facility] Encounter Diagnosis Viral URI with cough(Final) - 05/21/19 Discharge Disposition: A-D/C Home Attending Physician: Dionne Dubois MD Admitting Physician: Dionne Dubois MD Referring Physician: Not on Staff, Referring [...] 18:15:51 EDT Start Date: 09/04/18 Status: Ordered guaiFENesin 100 mg/5 mL oral liquid 10 mL = 200 mg, By Mouth, Every 4 hours, PRN for cough, for 3 days, # 100 mL, 0 Refills, Acute 05/24/19 22:15:00 EST, 05/21/19 22:15:00 EST, Liquid, [facility] #[id number], 162, cm, 05/21/19 12:08:00 EST, Height, 82.5, kg, 05/21/19 12:08:00 EST, D... Start Date: 05/21/19 Stop Date: 05/24/19 Status: Ordered Methadone = 105 mg, By Mouth, Daily, 0 Refills, Maintenance, 09/13/18 15:28:27 EDT, Tablet Start Date: 09/13/18 Status: Ordered prazosin 5 mg oral capsule 5 mg, 1, capsule, By Mouth, Daily at bedtime, # 30 capsule, Refills 0, Tot. Refills 0, Maintenance,05/16/19 9:07:00 EST, Route to Pharmacy Electronically, [facility] #[id number], 163, cm, 05/16/19 8:38:00 EST, Height, 82.3, kg, 05/05/19 16:01:00... Start Date: 05/16/19 Stop Date: 06/15/19 Status: Ordered SEROquel 100 mg oral tablet 100 mg, 1, tablet, By Mouth, Daily, At 1700, # 30 tablet, Refills 0, Tot. Refills 0, Maintenance, 05/16/19 9:03:00 EST, Route to Pharmacy Electronically, [facility] #[id number], 163, cm, 198:38:00 EST, Height, 82.3, kg, 05/05/19 16:01:00 ES... Start Date: 05/16/19 Stop Date: 06/15/19 Status: Ordered SEROquel 200 mg oral tablet 200 mg, By Mouth, 2 times a day, In a.m. and at bedtime, # 60 tablet, Refills 0, Tot. Refills 0, Maintenance, 05/16/19 9:06:00 EST, Route to Pharmacy Electronically, [facility] #[id number], 163, cm, 05/16/19 8:38:00 EST, Height, 82.3, kg, 05/05/19... Start Date: 05/16/19 Status: Ordered Problem List Condition Effective Dates [...] Active 1Pt currently in treatment staying at [facility] and has been placed on Methadone 105mg daily. 2Hx of multiple admissions for detox/substance abuse 3Hx of self-harming behaviors Results Radiology Reports * Exam Date Time Procedure Performing Provider Status 05/21/19 9:58 PM Chest 2 Views Frontal and Lat Eloisa Norwood; Crys (Verified) Notes: (Chest 2 Views Frontal and Lat) Reason For Exam: Shortness of Breath, Fever;Other: RESULT: Chest 2 Views Frontal and Lat Chest 2 Views Frontal and Lat Refer to EMR; Reason: Other:; Shortness of Breath, Fever; Clinical Question(s): Pneumonia; Hx of Present Illness: Cold symptoms since monday with greenishs phlem , C O chest heaviness, called her OB who tols her to come to ED for eval pt is 12 weeks .; Other Objective Findings: Pt A Ox4, speaking clear full sentences, voice raspy, resp even and unlabored, lung clear with rales in the ba COMPARISON: None. FINDINGS: LINES AND TUBES: None. LUNGS AND PLEURA: Clear lungs. Normal pulmonary vascularity. No pleural effusion. No pneumothorax. HEART, MEDIASTINUM AND TODD: Heart is normal in size. Normal mediastinal and hilar contour. BONES AND SOFT TISSUES: No acute abnormality. IMPRESSION: No acute abnormality. WSN: [id number] Dictated By: Wood Jackson MD Dictated Date/Time: 05/21/19 10:07 p Reviewed By: Wood Jackson MD Signed By: Wood Jackson MD Signed Date/Time: 05/21/19 10:07 pm Transcribed By: ANNITA Transcribed Date/Time: 05/21/19 10:07 pm Vital Signs Most recent to oldest [Reference Range]: 1 2 3 Height 162 cm (05/21/19 12:08 PM) Weight 82.5 kg (05/21/19 12:08 PM) 82.5 kg (05/21/19 11:39 AM) Oxygen Saturation [94-100 %] 100 % (05/21/19 8:48 PM) 99 % (05/21/19 11:39 AM) 100 % (05/21/19 11:36 AM) Pulse Rate [55-90 bpm] 111 bpm *H* (05/21/19 8:48 PM) 107 bpm *H* (05/21/19 11:39 AM) 119 bpm *H* (05/21/19 11:36 AM) Blood Pressure [90-138/55-84 mm Hg] 124/78mm Hg (05/21/19 8:48 PM) 124/73mm Hg (05/21/19 11:39 AM) Respiratory Rate [16-30 br/min] 16 br/min (05/21/19 8:48 PM) 22 br/min (05/21/19 11:39 AM) 19 br/min (05/21/19 11:36 AM) Temperature [96.8-100.4 DegF] 98.8 DegF (05/21/19 8:48 PM) 98.2 DegF (05/21/19 11:39 AM) Mode of Delivery (Oxygen) Room air (05/21/19 8:48 PM) Room air (05/21/19 11:39 AM) Blood pressure sites Arm, right (05/21/19 8:48 PM) Arm, right (05/21/19 11:39 AM) Temperature Route Oral (05/21/19 8:48 PM) Oral (05/21/19 11:39 AM) Dry Weight 82.5 kg (05/21/19 12:08 PM) 82.5 kg (05/21/19 11:39 AM) Weight Obtained Via Standing scale (05/21/19 11:39 AM) Dry Weight Obtained Via Standing scale (05/21/19 11:39 AM) Social History Social History Type Response Smoking Status Current every day dayne guzman entered on: 03/03/14 Sex
--- OUTSIDE RECORDS SUMMARY | 2023-05-06 11:45 | XMS_ITS | Continuity of Care Document ---
Author Name Unknown Organization [facility] ter Address [address] [place] [address]- Care Team Providers Care Pump Assembler Name Role Phone Not on Staff, PCP Primary Care Physician Unavail able [facility] Date[facility]): 05/[facility] - 05/05/[address] [address]- [facility] Encounter Diagnosis Vagina bleeding(Final) - 05/05/19 Discharge Disposition: A-D/C Home Attending Physician: Dashawn Chisholm MD Admitting Physician: Dashawn Chisholm MD Referring Physician: Not on Staff, Referring MD Allergies, Adverse Reactions, Alerts Substance Reaction Severity Status Fish Rash Persistent Moderate Active Abilify Active LaMICtal Active Immunizations Not Given Vaccine Date Status Refusal Reason pneumococcal 23-valent vaccine 09/13/17 Not Given Parent Or Guardian Refuses pneumococcal 23-valent vaccine 03/07/14 Not Given Patient Refuses influenza virus vaccine, inactivated 03/07/14 Not Given Patient Refuses Medications Amoxicillin 500, By Mouth, 2 times a day, Maintenance, 09/04/18 18:16:03 EDT Start Date: 09/04/18 Status: Ordered Chlorhexidine 0.12% Liquid 15 mL, Swish and Spit, 3 times a day after meals, 0 Refills, Maintenance, Oral Rinse Start Date: 09/13/18 Status: Ordered Classic oral tablet 1 tablet, By Mouth, Daily, # 30 tablet, 0 Refills, Maintenance, 04/17/19 19:16:18 EST Start Date: 04/17/19 Status: Ordered Docusate 0 Refills, Maintenance, 09/04/18 18:15:51 EDT Start Date: 09/04/18 Status: Ordered Ibuprofen 600 mg, By Mouth, 3 times a day, Refills 0, Maintenance, 09/04/18 18:16:09 EDT Start Date: 09/04/18 Status: Ordered lidocaine 4% topical film 1 patch, Topically, 2 times a day, for 5 days, # 6 each, 0 Refills, Acute 05/10/19 15:35:16 EST, 05/05/19 15:35:16 EST, Film, [facility], 1 patch Topically 2 times a day,x5 days, 163, cm, 09/14/18 8:49:04 EDT, Height, 82.3, kg, 05/05/19... Start Date: 05/05/19 Stop Date: 05/10/19 Status: Ordered lithium 300 mg oral tablet = 300 mg, By Mouth, 2 times a day, AM and HS, # 60 tablet, 0 Refills, Maintenance, 09/13/18 15:15:11 EDT, Tablet Start Date: 09/13/18 Status: Ordered Methadone 75, By Mouth, Daily, 0 Refills, Maintenance, 09/04/18 18:16:27 EDT Start Date: 09/04/18 Status: Ordered Methadone By Mouth, Daily, 0 Refills, Maintenance, 09/13/18 15:28:27 EDT, Tablet Start Date: 09/13/18 Status: Ordered nicotine 10 mg inhalation device See Instructions, use per package instructions, # 1 pack/packet, 0 Refills, Maintenance, 09/13/18 15:17:20 EDT Start Date: 09/13/18 Status: Ordered prazosin 1 mg oral capsule 3 mg, By Mouth, Daily at bedtime, # 90 capsule, Refills 0, Tot. Refills 0, Maintenance, 09/13/18 15:15:46 EDT, Print Requisition Start Date: 09/13/18 Status: Ordered SEROquel 200 mg oral tablet 200 mg, By Mouth, Daily at bedtime, # 30 tablet, Refills 0, Tot. Refills 0, Maintenance, 09/13/18 15:14:31 EDT, Print Requisition Start Date: 09/13/18 Status: Ordered SEROquel 50 mg oral tablet 1 tablet = 50 mg, By Mouth, 2 times a day, 9 AM and 5 PM, # 60 tablet, 0 Refills, Maintenance, 09/13/18 15:13:25 EDT, Tablet Start Date: 09/13/18 Status: Ordered Problem List Condition Effective Dates Status Health Status Inform ant Bipolar disorder(Confirmed) Active Fibromyalgia(Confirmed) Active Opiate dependence(Confirmed) Active Suicidal ideation(Confirmed) Active Hepatitis C(Confirmed) Active Vital Signs Most recent to oldest [Reference Range]: 1 2 3 Weight 82.3 kg (05/05/19 4:01 PM) 82.3 kg (05/05/19 12:45 PM) Oxygen Saturation [94-100 %] 99 % (05/05/19 6:23 PM) 99 % (05/05/19 4:01 PM) 100 % (05/05/19 12:45 PM) Pulse Rate [55-90 bpm] 86 bpm (05/05/19 6:23 PM) 84 bpm (05/05/19 4:01 PM) 90 bpm (05/05/19 12:45 PM) Blood Pressure [90-138/55-84 mm Hg] 128/80mm Hg (05/05/19 6:23 PM) 125/78mm Hg (05/05/19 4:01 PM) 141/89mm Hg *H* (05/05/19 12:45 PM) Respiratory Rate [16-30 br/min] 18 br/min (05/05/19 6:23 PM) 19 br/min (05/05/19 4:01 PM) 19 br/min (05/05/19 12:45 PM) Temperature [96.8-100.4 DegF] 98.1 DegF (05/05/19 4:01 PM) 97.5 DegF (05/05/19 12:45 PM) Liters per Minute 0 L/min (05/05/19 12:45 PM) Mode of Delivery (Oxygen) Room air (05/05/19 6:23 PM) Room air (05/05/19 4:01 PM) Room air (05/05/19 12:45 PM) Blood pressure sites Arm, left (05/05/19 6:23 PM) Arm, left (05/05/19 4:01 PM) Arm, right (05/05/19 12:45 PM) Temperature Route Oral (05/05/19 4:01 PM) Oral (05/05/19 12:45 PM) Dry Weight 82.3 kg (05/05/19 4:01 PM) 82.3 kg (05/05/19 12:45 PM) Weight Obtained Via Standing scale (05/05/19 12:45 PM) Dry Weight Obtained Via Standing scale (05/05/19 12:45 PM) Social History Social History Type Response Smoking Status Current every day dayne guzman entered on: 03/03/14 Sex
--- OUTSIDE RECORDS SUMMARY | 2023-05-06 11:45 | XMS_ITS | Continuity of Care Document ---
Author Name Unknown Organization [facility] Address [address] [place] [address]- Care Team Providers Care Tc Operator Name Role Phone Estelita Lombardi MD, [facility] [place] [facility] [place] 12/28/[address] [address]- [facility] Allergies, Adverse Reactions, Alerts Substance Reaction Severity [...] 11/24/19 9:50:00 EDT, Route to Pharmacy Electronically, [facility] Start Date: 11/24/19 Status: Ordered aspirin 81 mg oral tablet See Instructions, 2 tablet By Mouth Daily at bedtime, # 60 tablet, 3 Refills, Maintenance, 09/09/2012:11:00 EDT, [facility]-[id number], 163, cm, 09/10/19 13:04:00 EDT, Height, 84.5, [...] 09/04/19 13:06:00 EDT, Route to Pharmacy Electronically, [facility]-[id number], 163, cm, 08/13/19 14:46:00 EDT, Hei... Start Date: 09/04/19 Status: Ordered Docusate 0 Refills, Maintenance, 09/04/18 18:15:51 EDT Start Date: 09/04/18 Status: Ordered docusate sodium 100 mg oral tablet 1 tablet = 100 mg, By Mouth, 2 times a day, PRN for constipation, # 60 tablet, 0 Refills, Maintenance, 07/04/19 16:19:00 EST, Tablet, [facility][id number], 163, cm, 07/04/19 15:29:00 EST, Height, 84.5, [...] Refills, Maintenance, 07/04/19 16:20:00 EST, REC Powder, [facility] #[id number], 163, cm, 07/04/19 15:29:00 EST, Height, 84.5, kg, 06/19/19 14:03:00 EST, Dry Weight Start Date: 07/04/19 Status: Ordered Methadone = 175 mg, By Mouth, Daily, 0 Refills, Maintenance, 09/13/18 15:28:27 EDT, Tablet Start Date: 09/13/18 Status: Ordered Ortho Micronor 0.35 mg oral tablet 1 tablet = 0.35 mg, By Mouth, Daily, # 28 tablet, 2 Refills, Maintenance, 11/24/19 8:56:00 EDT, Tablet, [facility] #[id number], 162, cm, 11/23/19 4:48:00 EDT, Height, 80.3, kg, 11/22/19 4:59:00 EDT, Dry Weight Start Date: 11/24/19 Status: Ordered prazosin 5 mg oral capsule 5 mg, 1, capsule, By Mouth, Daily at bedtime, # 30 capsule, Refills 0, Tot. Refills 0, Maintenance,05/16/19 9:07:00 EST, Route to Pharmacy Electronically, [facility] #[id number], 163, cm, 05/16/19 8:38:00 EST, Height, 82.3, kg, 05/05/19 16:01:00... Start Date: 05/16/19 Stop Date: 06/15/19 Status: Ordered SEROquel 100 mg oral tablet 100 mg, 1, tablet, By Mouth, 2 times a day, In morning and at 5 p.m., # 60 tablet, Refills 0, Tot. Refills 0, Maintenance, 05/31/19 16:04:00 EST, Route to Pharmacy Electronically, [facility]#[id number], 162, cm, 05/21/19 12:08:00 EST, Height, 82.... Start Date: 05/31/19 Stop Date: 06/30/19 Status: Ordered SEROquel 200 mg oral tablet 200 mg, 1, tablet, By Mouth, Daily at bedtime, # 30 tablet, Refills 0, Tot. Refills 0, Maintenance,05/31/19 16:05:00 EST, Route to Pharmacy Electronically, [facility] #[id number], 162, cm, 05/21/19 12:08:00 EST, Height, 82.5, [...] Active 1Pt currently in treatment staying at [facility] and has been placed on Methadone 105mg daily. 2Hx of multiple admissions for detox/substance abuse 3Hx of self-harming behaviors Social History Social History Type Response Smoking Status Current every day dayne guzman entered on: 03/03/14 Sex Female
--- OUTSIDE RECORDS SUMMARY | 2023-05-06 11:45 | XMS_ITS | Continuity of Care Document ---
Author Name Unknown Organization [facility] Address [address] [place] [address]- Care Team Providers Care Button Inspector Name Role Phone Not on Staff, PCP Primary Care Physician Unavail able [facility] Date[facility]s): 05/09/19 - 06/12/[address] [address]- [facility] Attending Physician: Not on Staff, Attending MD Referring Physician: Lisa MOSER, [place] Allergies, Adverse Reactions, Alerts Substance Reaction Severity Status Fish Rash Persistent Moderate Active Abilify Active LaMICtal Active Immunizations Not Given Vaccine Date Status Refusal Reason pneumococcal 23-valent vaccine 09/13/17 Not Given Parent Or Guardian Refuses pneumococcal 23-valent vaccine 03/07/14 Not Given Patient Refuses influenza virus vaccine, inactivated 03/07/14 Not Given Patient Refuses Medications cephalexin monohydrate 500 mg oral capsule 1 capsule = 500 mg, By Mouth, Every 12 hours, for 7 days, # 14 capsule, 0 Refills, Acute 06/13/19 9:03:00 EST, 06/06/19 9:03:00 EST, Capsule, [id number], 162, cm, 05/21/19 12:08:00 EST, Height, 83, kg, 06/06/19 6:17:00 EST, Dry Weight Start Date: 06/06/19 Stop Date: 06/13/19 Status: Ordered Classic oral tablet 1 tablet, [...] Maintenance,05/16/19 9:07:00 EST, Route to Pharmacy Electronically, [facility] #[id number], 163, cm, 05/16/19 8:38:00 EST, Height, 82.3, kg, 05/05/19 16:01:00... Start Date: 05/16/19 Stop Date: 06/15/19 Status: Ordered SEROquel 100 mg oral tablet 100 mg, 1, tablet, By Mouth, 2 times a day, In morning and at 5 p.m., # 60 tablet, Refills 0, Tot. Refills 0, Maintenance, 05/31/19 16:04:00 EST, Route to Pharmacy Electronically, [facility]#[id number], 162, cm, 05/21/19 12:08:00 EST, Height, 82.... Start Date: 05/31/19 Stop Date: 06/30/19 Status: Ordered SEROquel 200 mg oral tablet 200 mg, 1, tablet, By Mouth, Daily at bedtime, # 30 tablet, Refills 0, Tot. Refills 0, Maintenance,05/31/19 16:05:00 EST, Route to Pharmacy Electronically, [facility] #[id number], 162, cm, 05/21/19 12:08:00 EST, Height, 82.5, [...] Active 1Pt currently in treatment staying at [facility] and has been placed on Methadone 105mg daily. 2Hx of multiple admissions for detox/substance abuse 3Hx of self-harming behaviors Social History Social History Type Response Smoking Status Current every day dayne guzman entered on: 03/03/14 Sex Female
--- OUTSIDE RECORDS SUMMARY | 2023-05-06 11:45 | XMS_ITS | Continuity of Care Document ---
Author Name Unknown Organization [facility] Address [address] [place] [address]- Care Team Providers Care Watch Train Assembler Name Role Phone Estelita Lombardi MD, Colt Primary Care Phys [facility] [place] [facility] [place] 11[place]23/19 [facility] [address] [place] [address] Attending Physician: Admperry, Lyn Admitting Physician: AdmtrLyn Referring Physician: Admtr, Ar8 Allergies, Adverse Reactions, Alerts Substance Reaction Severity [...] 60 tablet, 3 Refills, Maintenance, 09/09/2012:11:00 EDT, [facility]-[id number], 163, cm, 09/10/19 13:04:00 EDT, Height, [...] 09/04/19 13:06:00 EDT, Route to Pharmacy Electronically, [facility]-[id number], 163, cm, 08/13/19 14:46:00 EDT, Charmaine Start Date: 09/04/19 Status: Ordered Docusate 0 Refills, Maintenance, 09/04/18 18:15:51 EDT Start Date: 09/04/18 Status: Ordered docusate sodium 100 mg oral tablet 1 tablet = 100 mg, By Mouth, 2 times a day, PRN for constipation, # 60 tablet, 0 Refills, Maintenance, 07/04/19 16:19:00 EST, Tablet, [facility] #[id number], 163, cm, 07/04/19 15:29:00 EST, Height, 84.5, kg, 06/19/19 14:03:00 EST, Dry Weight Start Date: 07/04/19 Status: Ordered Metamucil 3.4 gm/5.2 gm oral powder for reconstitution = 3.4 Gm, By Mouth, 3 times a day, PRN as needed for constipation, # 1,042 Gm, 1 Refills, Maintenance, 07/04/19 16:20:00 EST, REC Powder, [facility] #[id number], 163, cm, 07/04/19 15:29:00 EST, Height, 84.5, [...] Maintenance,05/16/19 9:07:00 EST, Route to Pharmacy Electronically, [facility] #[id number], 163, cm, 05/16/19 8:38:00 EST, Height, 82.3, kg, 05/05/19 16:01:00... Start Date: 05/16/19 Stop Date: 06/15/19 Status: Ordered SEROquel 100 mg oral tablet 100 mg, 1, tablet, By Mouth, 2 times a day, In morning and at 5 p.m., # 60 tablet, Refills 0, Tot. Refills 0, Maintenance, 05/31/19 16:04:00 EST, Route to Pharmacy Electronically, [facility]#[id number], 162, cm, 05/21/19 12:08:00 EST, Height, 82.... Start Date: 05/31/19 Stop Date: 06/30/19 Status: Ordered SEROquel 200 mg oral tablet 200 mg, 1, tablet, By Mouth, Daily at bedtime, # 30 tablet, Refills 0, Tot. Refills 0, Maintenance,05/31/19 16:05:00 EST, Route to Pharmacy Electronically, [facility] #[id number], 162, cm, 05/21/19 12:08:00 EST, Height, 82.5, [...]
--- OUTSIDE RECORDS SUMMARY | 2023-05-06 11:45 | XMS_ITS | Continuity of Care Document ---
Author Name Unknown Organization [facility] ter Address [address] [place] [address]- Care Team Providers Care Rigging Man Name Role Phone Not on Staff, PCP Primary Care Physician Unavail able [facility] Date(s): 07/08/19 - 07/08/[address] [address]- [facility] Encounter Diagnosis Elevated blood pressure reading(Final) - 07/08/19 Elevated blood pressure reading(Final) - 07/08/19 Discharge Disposition: A-D/C Home Attending Physician: Dashawn [...] vaccine 03/07/14 Not Given Patient Refuses Medications Classic [...] 0 Refills, Maintenance, 07/04/19 16:19:00 EST, Tablet, [facility] #[id number], 163, cm, 02/13/20 15:29:00 EST, Height, 84.5, kg, 06/19/19 14:03:00 EST, Dry Weight Start Date: 07/04/19 Status: Ordered Metamucil 3.4 gm/5.2 gm oral powder for reconstitution = 3.4 Gm, By Mouth, 3 times a day, PRN as needed for constipation, # 1,042 Gm, 1 Refills, Maintenance, 07/04/19 16:20:00 EST, REC Powder, [id number], 163, cm, 07/04/19 15:29:00 EST, Height, 84.5, [...] Maintenance,05/16/19 9:07:00 EST, [facility][id number], 163, cm, 05/16/19 8:38:00 EST, Height, 82.3, kg, 05/05/19 16:01:00... Start Date: 05/16/19 Stop Date: 06/15/19 Status: Ordered SEROquel 100 mg oral tablet 100 mg, 1, tablet, By Mouth, 2 times a day, In morning and at 5 p.m., # 60 tablet, Refills 0, Tot. Refills 0, Maintenance, 05/31/19 16:04:00 EST, [facility]ically[id number], 162, cm, 05/21/19 12:08:00 EST, Height, 82.... Start Date: 05/31/19 Stop Date: 06/30/19 Status: Ordered SEROquel 200 mg oral tablet 200 mg, 1, tablet, By Mouth, Daily at bedtime, # 30 tablet, Refills 0, Tot. Refills 0, Maintenance,05/31/19 16:05:00 EST, Route to Pharmacy Electronically, [facility] #[id number], 162, cm, 05/21/19 12:08:00 EST, Height, 82.5, [...] Active 1Pt currently in treatment staying at [facility] and has been placed on Methadone 105mg daily. 2Hx of multiple admissions for detox/substance abuse 3Hx of self-harming behaviors Vital Signs Most recent to oldest [Reference Range]: 1 2 3 Oxygen Saturation [94-100 %] 100 % (07/08/19 11:46 PM) 99 % (07/08/19 10:54 PM) 100 % (07/08/19 9:06 PM) Pulse Rate [55-90 bpm] 91 bpm *H* (07/08/19 11:46 PM) 97 bpm *H* (07/08/19 9:06 PM) 89 bpm (07/08/19 3:50 PM) Blood Pressure [90-138/55-84 mm Hg] 130/81mm Hg (07/08/19 11:46 PM) 124/74mm Hg (07/08/19 10:54 PM) 133/77mm Hg (07/08/19 9:11 PM) Respiratory Rate [16-30 br/min] 16 br/min (07/08/19 11:46 PM) 18 br/min (07/08/19 10:54 PM) 18 br/min (07/08/19 9:06 PM) Temperature [96.8-100.4 DegF] 98.0 DegF (07/08/19 9:06 PM) Mode of Delivery (Oxygen) Room air (07/08/19 11:46 PM) Room air (07/08/19 10:54 PM) Room air (07/08/19 9:06 PM) Blood pressure sites Arm, left (07/08/19 11:46 PM) Arm, left (07/08/19 10:54 PM) Arm, left (07/08/19 9:11 PM) Temperature Route Oral (07/08/19 9:06 PM) Social History Social History Type Response Smoking Status Current every day dayne ugzman entered on: 03/03/14 Sex Female
--- OUTSIDE RECORDS SUMMARY | 2023-05-06 11:45 | XMS_ITS | Continuity of Care Document ---
Author Name Unknown Organization [facility] Address [address] [place] [id number]- Care Team Providers Care Fire Adjuster Name Role Phone Estelita Lombardi MD, Colt Primary Care Phys [facility] [address] [place] [facility] [place] - 09/18/[address] [address]- [facility] Encounter Diagnosis Generalized body aches(Final) - 09/18/19 Discharge Disposition: A-D/C Home Attending Physician: Ashwin Fair MD Admitting Physician: Ashwin Fair MD Referring Physician: Not on Staff, Referring [...] 60 tablet, 3 Refills, Maintenance, 09/09/2012:11:00 EDT, [facility]-[id number], 163, cm, 09/10/19 13:04:00 EDT, Height, [...] 09/04/19 13:06:00 EDT, Route to Pharmacy Electronically, [facility]-[id number], 163, cm, 08/13/19 14:46:00 EDT, Charmaine Start Date: 09/04/19 Status: Ordered Docusate 0 Refills, Maintenance, 09/04/18 18:15:51 EDT Start Date: 09/04/18 Status: Ordered docusate sodium 100 mg oral tablet 1 tablet = 100 mg, By Mouth, 2 times a day, PRN for constipation, # 60 tablet, 0 Refills, Maintenance, 07/04/19 16:19:00 EST, Tablet, [facility] #[id number], 163, cm, 07/04/19 15:29:00 EST, Height, 84.5, kg, 06/19/19 14:03:00 EST, Dry Weight Start Date: 07/04/19 Status: Ordered Metamucil 3.4 gm/5.2 gm oral powder for reconstitution = 3.4 Gm, By Mouth, 3 times a day, PRN as needed for constipation, # 1,042 Gm, 1 Refills, Maintenance, 07/04/19 16:20:00 EST, REC Powder, [facility] #[id number], 163, cm, 07/04/19 15:29:00 EST, Height, 84.5, [...] Maintenance,05/16/19 9:07:00 EST, Route to Pharmacy Electronically, [facility] #[id number], 163, cm, 05/16/19 8:38:00 EST, Height, 82.3, kg, 05/05/19 16:01:00... Start Date: 05/16/19 Stop Date: 06/15/19 Status: Ordered SEROquel 100 mg oral tablet 100 mg, 1, tablet, By Mouth, 2 times a day, In morning and at 5 p.m., # 60 tablet, Refills 0, Tot. Refills 0, Maintenance, 05/31/19 16:04:00 EST, Route to Pharmacy Electronically, [facility]#[id number], 162, cm, 05/21/19 12:08:00 EST, Height, 82.... Start Date: 05/31/19 Stop Date: 06/30/19 Status: Ordered SEROquel 200 mg oral tablet 200 mg, 1, tablet, By Mouth, Daily at bedtime, # 30 tablet, Refills 0, Tot. Refills 0, Maintenance,05/31/19 16:05:00 EST, Route to Pharmacy Electronically, [facility] #[id number], 162, cm, 05/21/19 12:08:00 EST, Height, 82.5, [...] Active 1Pt currently in treatment staying at [facility] and has been placed on Methadone 105mg daily. 2Hx of multiple admissions for detox/substance abuse 3Hx of self-harming behaviors Vital Signs Most recent to oldest [Reference Range]: 1 2 Height 163 cm (09/18/19 6:20 PM) 163 cm (09/18/19 4:58 PM) Oxygen Saturation [94-100 %] 100 % (09/18/19 6:20 PM) 98 % (09/18/19 4:58 PM) Pulse Rate [55-90 bpm] 99 bpm *H* (09/18/19 6:20 PM) 104 bpm *H* (09/18/19 4:58 PM) Blood Pressure [90-138/55-84 mm Hg] 116/ 74mm Hg (09/18/19 6:20 PM) 113/69mm Hg (09/18/19 4:58 PM) Respiratory Rate [16-30 br/min] 16 br/mi n (09/18/19 6:20 PM) 22 br/min (09/18/19 4:58 PM) Temperature [96.8-100.4 DegF] 97.7 DegF (09/18/19 6:20 PM) 98.2 DegF (09/18/19 4:58 PM) Mode of Delivery (Oxygen) Room air (09/18/19 6:20 PM) Room air (09/18/19 4:58 PM) Blood pressure sites Arm, right (09/18/19 6:20 PM) Arm, left (09/18/19 4:58 PM) Temperature Route Oral (09/18/19 6:20 PM) Oral (09/18/19 4:58 PM) Dry Weight 89 kg (09/18/19 6:20 PM) 89 kg (09/18/19 4:58 PM) Social History Social History Type Response Smoking Status Current every day dayne guzman entered on: 03/03/14 Sex Female
--- OUTSIDE RECORDS SUMMARY | 2023-05-06 11:45 | XMS_ITS | Continuity of Care Document ---
Author Name Unknown Organization [facility] ter Address [address] [place] [id number]- Care Team Providers Care Inside Plant Supervisor Name Role Phone Estelita Lombardi MD, Colt [facility] [place] Date(s): 10/02/19 - 10/02/[address] [address]- [facility] Discharge Disposition: A-D/C Home Attending Physician: Concepcion [...] 60 tablet, 3 Refills, Maintenance, 09/09/2012:11:00 EDT, [facility]-[id number], 163, cm, 09/10/19 13:04:00 EDT, Height, [...] 09/04/19 13:06:00 EDT, Route to Pharmacy Electronically, [facility]-[id number], 163, cm, 08/13/19 14:46:00 EDT, Hei... Start Date: 09/04/19 Status: Ordered Docusate 0 Refills, Maintenance, 09/04/18 18:15:51 EDT Start Date: 09/04/18 Status: Ordered docusate sodium 100 mg oral tablet 1 tablet = 100 mg, By Mouth, 2 times a day, PRN for constipation, # 60 tablet, 0 Refills, Maintenance, 07/04/19 16:19:00 EST, Tablet, [facility] #[id number], 163, cm, 07/04/19 15:29:00 EST, Height, 84.5, kg, 06/19/19 14:03:00 EST, Dry Weight Start Date: 07/04/19 Status: Ordered Macrobid macrocrystals-monohydrate 100 mg oral capsule 1 capsule = 100 mg, By Mouth, 2 times a day, for 5 days, # 10 capsule, 0 Refills, Acute 10/07/19 14:17:00 EDT, 10/02/19 14:17:00 EDT, Capsule, [facility] #[id number], 163, cm, 09/27/19 12:48:00 EDT, Height, 89, kg, 09/18/19 18:20:00 EDT, Dry Weight Start Date: 10/02/19 Stop Date: 10/07/19 Status: Ordered Metamucil 3.4 gm/5.2 gm oral powder for reconstitution = 3.4 Gm, By Mouth, 3 times a day, PRN as needed for constipation, # 1,042 Gm, 1 Refills, Maintenance, 07/04/19 16:20:00 EST, REC Powder, [facility] #[id number], 163, cm, 07/04/19 15:29:00 EST, Height, 84.5, [...] Maintenance,05/16/19 9:07:00 EST, Route to Pharmacy Electronically, [facility] #[id number], 163, cm, 05/16/19 8:38:00 EST, Height, 82.3, kg, 05/05/19 16:01:00... Start Date: 05/16/19 Stop Date: 06/15/19 Status: Ordered SEROquel 100 mg oral tablet 100 mg, 1, tablet, By Mouth, 2 times a day, In morning and at 5 p.m., # 60 tablet, Refills 0, Tot. Refills 0, Maintenance, 05/31/19 16:04:00 EST, Route to Pharmacy Electronically, [facility]#[id number], 162, cm, 05/21/19 12:08:00 EST, Height, 82.... Start Date: 05/31/19 Stop Date: 06/30/19 Status: Ordered SEROquel 200 mg oral tablet 200 mg, 1, tablet, By Mouth, Daily at bedtime, # 30 tablet, Refills 0, Tot. Refills 0, Maintenance,05/31/19 16:05:00 EST, Route to Pharmacy Electronically, [facility] #[id number], 162, cm, 05/21/19 12:08:00 EST, Height, 82.5, [...] Active 1Pt currently in treatment staying at [facility] and has been placed on Methadone 105mg daily. 2Hx of multiple admissions for detox/substance abuse 3Hx of self-harming behaviors Vital Signs Most recent to oldest [Reference Range]: 1 2 Weight 90.2 kg (10/02/19 10:27 AM) Oxygen Saturation [94-100 %] 98 % (10/02/19 10:35 AM) Pulse Rate [55-90 bpm] 91 bpm *H* (10/02/19 10:35 AM) Blood Pressure [90-138/55-84 mm Hg] 118/ 72mm Hg (10/02/19 10:35 AM) Respiratory Rate [16-30 br/min] 18 br/mi n (10/02/19 10:35 AM) Temperature [96.8-100.4 DegF] 97.9 DegF (10/02/19 10:27 AM) Mode of Delivery (Oxygen) Room air (10/02/19 10:35 AM) Blood pressure sites Arm, right (10/02/19 10:35 AM) Temperature Route Oral (10/02/19 10:35 AM) Oral (10/02/19 10:27 AM) Weight Obtained Via Standing scale (10/02/19 10:27 AM) Social History Social History Type Response Smoking Status Current every day dayne guzman entered on: 03/03/14 Sex Female
--- OUTSIDE RECORDS SUMMARY | 2023-05-06 11:45 | XMS_ITS | Continuity of Care Document ---
Author Name Unknown Organization [facility] ter Address [address] [place] [address]- Care Team Providers Care Assistant Professor Of Religion Name Role Phone Not on Staff, PCP Primary Care Physician Unavail able [facility] Date[facility]s): 05/[facility]/19 - 05/09/[address] [address]- [facility] Attending Physician: Veronica Thomas NP Allergies, Adverse Reactions, Alerts Substance Reaction Severity [...] 05/10/19 15:35:16 EST, 05/05/19 15:35:16 EST, Film, [facility] 3, 1 patch Topically 2 [...] currently in treatment staying at [facility] and has been placed on Methadone 105mg daily. 2Hx of multiple admissions for detox/substance abuse 3Hx of self-harming behaviors Social History Social History Type Response Smoking Status Current every day dayne guzman entered on: 03/03/14 Sex
--- OUTSIDE RECORDS SUMMARY | 2023-05-06 11:45 | XMS_ITS | Continuity of Care Document ---
Author Name Unknown Organization [facility] Address [address] [place] [address]- Care Team Providers Care Histology Assistant Name Role Phone Estelita Lombardi MD, Colt Primary Care Phys [facility] [place] [facility] [place] Date(s): 08/13/19 - 09/21/[address] [address]- [facility] Attending Physician: Not on Staff, Attending MD Allergies, Adverse Reactions, Alerts Substance Reaction [...] 60 tablet, 3 Refills, Maintenance, 09/09/2012:11:00 EDT, [facility]-20199, 163, cm, 09/10/19 13:04:00 EDT, Height, [...] 09/04/19 13:06:00 EDT, Route to Pharmacy Electronically, [facility]201[facility], 163, cm, 08/13/19 14:46:00 EDT, Hei... Start Date: 09/04/19 Status: Ordered Docusate 0 Refills, Maintenance, 09/04/18 18:15:51 EDT Start Date: 09/04/18 Status: Ordered docusate sodium 100 mg oral tablet 1 tablet = 100 mg, By Mouth, 2 times a day, PRN for constipation, # 60 tablet, 0 Refills, Maintenance, 07/04/19 16:19:00 EST, Tablet, [facility] #[id number], 163, cm, 07/04/19 15:29:00 EST, Height, 84.5, kg, 06/19/19 14:03:00 EST, Dry Weight Start Date: 07/04/19 Status: Ordered Metamucil 3.4 gm/5.2 gm oral powder for reconstitution = 3.4 Gm, By Mouth, 3 times a day, PRN as needed for constipation, # 1,042 Gm, 1 Refills, Maintenance, 07/04/19 16:20:00 EST, REC Powder, [facility] #[id number], 163, cm, 07/04/19 15:29:00 EST, Height, 84.5, [...] Maintenance,05/16/19 9:07:00 EST, Route to Pharmacy Electronically, [facility] #[id number], 163, cm, 05/16/19 8:38:00 EST, Height, 82.3, kg, 05/05/19 16:01:00... Start Date: 05/16/19 Stop Date: 06/15/19 Status: Ordered SEROquel 100 mg oral tablet 100 mg, 1, tablet, By Mouth, 2 times a day, In morning and at 5 p.m., # 60 tablet, Refills 0, Tot. Refills 0, Maintenance, 05/31/19 16:04:00 EST, Route to Pharmacy Electronically, [facility]#[id number], 162, cm, 05/21/19 12:08:00 EST, Height, 82.... Start Date: 05/31/19 Stop Date: 06/30/19 Status: Ordered SEROquel 200 mg oral tablet 200 mg, 1, tablet, By Mouth, Daily at bedtime, # 30 tablet, Refills 0, Tot. Refills 0, Maintenance,05/31/19 16:05:00 EST, Route to Pharmacy Electronically, [facility] #[id number], 162, cm, 05/21/19 12:08:00 EST, Height, 82.5, [...]
--- OUTSIDE RECORDS SUMMARY | 2023-05-06 11:46 | XMS_ITS | Continuity of Care Document ---
Author Name Unknown Organization [facility] Address [address] [place] [phone]- Care Team Providers Care Support Assistant Name Role Phone Not on Staff, PCP Primary Care Physician Unavail able [facility]s): 05/09/19 - 07/06/19 [facility] [address] [address]- [facility] Attending Physician: Not on Staff, Attending MD Referring Physician: Farzaneh Bejarano CNM Allergies, Adverse Reactions, Alerts Substance Reaction Severity [...] 0 Refills, Maintenance, 07/04/19 16:19:00 EST, Tablet, [facility] #[id number], 163, cm, 07/04/19 15:29:00 EST, Height, 84.5, kg, 06/19/19 14:03:00 EST, Dry Weight Start Date: 07/04/19 Status: Ordered Metamucil 3.4 gm/5.2 gm oral powder for reconstitution = 3.4 Gm, By Mouth, 3 times a day, PRN as needed for constipation, # 1,042 Gm, 1 Refills, Maintenance, 07/04/19 16:20:00 EST, REC Powder, [facility] #[id number], 163, cm, 07/04/19 15:29:00 EST, Height, 84.5, [...] Maintenance,05/16/19 9:07:00 EST, Route to Pharmacy Electronically, [facility] #[id number], 163, cm, 05/16/19 8:38:00 EST, Height, 82.3, kg, 05/05/19 16:01:00... Start Date: 05/16/19 Stop Date: 06/15/19 Status: Ordered SEROquel 100 mg oral tablet 100 mg, 1, tablet, By Mouth, 2 times a day, In morning and at 5 p.m., # 60 tablet, Refills 0, Tot. Refills 0, Maintenance, 05/31/19 16:04:00 EST, Route to Pharmacy Electronically, [facility]#[id number], 162, cm, 05/21/19 12:08:00 EST, Height, 82.... Start Date: 05/31/19 Stop Date: 06/30/19 Status: Ordered SEROquel 200 mg oral tablet 200 mg, 1, tablet, By Mouth, Daily at bedtime, # 30 tablet, Refills 0, Tot. 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 2Hx of multiple admissions for detox/substance abuse 3Hx of self-harming behaviors Social History Social History Type Response Smoking Status Current every day dayne guzman entered on: 03/03/14 Sex Female
--- OUTSIDE RECORDS SUMMARY | 2023-05-06 11:46 | XMS_ITS | Continuity of Care Document ---
Author Name Unknown Organization [facility] Address [address] [place] [phone]- Care Team Providers Care Inspector Returned Materials Name Role Phone Estelita Lombardi MD, Colt Primary Care Phys [facility] Encounter [facility] [place] Date(s): 07/25/19 - 09/11/[address] [address]- [facility] Attending Physician: Not on [...] 60 tablet, 3 Refills, Maintenance, 09/09/2012:11:00 EDT, [facility]20199, 163, cm, 09/10/19 13:04:00 EDT, Height, 84.5, [...] 09/04/19 13:06:00 EDT, Route to Pharmacy Electronically, [facility]-20199, 163, cm, 08/13/19 14:46:00 EDT, Hei... Start Date: 09/04/19 Status: Ordered Docusate 0 Refills, Maintenance, 09/04/18 18:15:51 EDT Start Date: 09/04/18 Status: Ordered docusate sodium 100 mg oral tablet 1 tablet = 100 mg, By Mouth, 2 times a day, PRN for constipation, # 60 tablet, 0 Refills, Maintenance, 07/04/19 16:19:00 EST, Tablet, [facility] #[id number], 163, cm, 07/04/19 15:29:00 EST, Height, 84.5, kg, 06/19/19 14:03:00 EST, Dry Weight Start Date: 07/04/19 Status: Ordered Macrobid macrocrystals-monohydrate 100 mg oral capsule 1 capsule = 100 mg, By Mouth, 2 times a day, for 14 days, # 28 capsule, 0 Refills, Acute 09/18/19 13:34:00 EDT, 09/04/19 13:34:00 EDT, Capsule, [facility]-20199, 163, cm, 08/13/19 14:46:00 EDT, Height, 84.5, kg, 06/19/19 14:03:00 EST... Start Date: 09/04/19 Stop Date: 09/18/19 Status: Ordered Metamucil 3.4 gm/5.2 gm oral powder for reconstitution = 3.4 Gm, By Mouth, 3 times a day, PRN as needed for constipation, # 1,042 Gm, 1 Refills, Maintenance, 07/04/19 16:20:00 EST, REC Powder, [facility] #[id number], 163, cm, 07/04/19 15:29:00 EST, Height, 84.5, [...] Maintenance,05/16/19 9:07:00 EST, Route to Pharmacy Electronically, [facility] #[id number], 163, cm, 05/16/19 8:38:00 EST, Height, 82.3, kg, 05/05/19 16:01:00... Start Date: 05/16/19 Stop Date: 06/15/19 Status: Ordered SEROquel 100 mg oral tablet 100 mg, 1, tablet, By Mouth, 2 times a day, In morning and at 5 p.m., # 60 tablet, Refills 0, Tot. Refills 0, Maintenance, 05/31/19 16:04:00 EST, Route to Pharmacy Electronically, [facility]#[id number], 162, cm, 05/21/19 12:08:00 EST, Height, 82.... Start Date: 05/31/19 Stop Date: 06/30/19 Status: Ordered SEROquel 200 mg oral tablet 200 mg, 1, tablet, By Mouth, Daily at bedtime, # 30 tablet, Refills 0, Tot. Refills 0, Maintenance,05/31/19 16:05:00 EST, Route to Pharmacy Electronically, [facility] #[id number], 162, cm, 05/21/19 12:08:00 EST, Height, 82.5, [...] in treatment staying at [facility] and has been placed on Methadone 105mg daily. 2Hx of multiple admissions for detox/substance abuse 3Hx of self-harming behaviors Social History Social History Type Response Smoking Status Current every day dayne guzman entered on: 03/03/14 Sex Female
--- OUTSIDE RECORDS SUMMARY | 2023-05-06 11:46 | XMS_ITS | Continuity of Care Document ---
Author Name Unknown Organization [facility] Address [address] [place] [address]- Care Team Providers Care Sand Slinger Operator Name Role Phone Not on Staff, PCP Primary Care Physician Unavail able [facility] Date[facility]s): 05/17/19 - 06/19/19 [facility] [address] [address]- [facility] Attending Physician: Not on Staff, [...] Maintenance,05/16/19 9:07:00 EST, Route to Pharmacy Electronically, [facility] #[id number], 163, cm, 05/16/19 8:38:00 EST, Height, 82.3, kg, 05/05/19 16:01:00... Start Date: 05/16/19 Stop Date: 06/15/19 Status: Ordered SEROquel 100 mg oral tablet 100 mg, 1, tablet, By Mouth, 2 times a day, In morning and at 5 p.m., # 60 tablet, Refills 0, Tot. Refills 0, Maintenance, 05/31/19 16:04:00 EST, Route to Pharmacy Electronically, [facility][id number], 162, cm, 05/21/19 12:08:00 EST, Height, 82.... Start Date: 05/31/19 Stop Date: 06/30/19 Status: Ordered SEROquel 200 mg oral tablet 200 mg, 1, tablet, By Mouth, Daily at bedtime, # 30 tablet, Refills 0, Tot. 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 2Hx of multiple admissions for detox/substance abuse 3Hx of self-harming behaviors Social History Social History Type Response Smoking Status Current every day dayne guzman entered on: 03/03/14 Sex Female
--- OUTSIDE RECORDS SUMMARY | 2023-05-06 11:46 | XMS_ITS | Continuity of Care Document ---
Author Name Unknown Organization [facility] Address [address] [place] [address]- Care Team Providers Care Archaeology Professor Name Role Phone Estelita Lombardi MD, Colt [facility] Phys [facility] [place] [facility] [place] Date(s): 10/31/19 - 10/31/[address] [address]- [facility] Discharge Disposition: A-D/C Walkout Attending Physician: Not [...] 09/09/2012:11:00 EDT, [facility]20199, 163, cm, 09/10/19 13:04:00 EDT, Height, 84.5, [...] 13:06:00 EDT, Route to Pharmacy Electronically, [facility]201[facility], 163, cm, 08/13/19 14:46:00 EDT, Cat... Start Date: 09/04/19 Status: Ordered Docusate 0 Refills, Maintenance, 09/04/18 18:15:51 EDT Start Date: 09/04/18 Status: Ordered docusate sodium 100 mg oral tablet 1 tablet = 100 mg, By Mouth, 2 times a day, PRN for constipation, # 60 tablet, 0 Refills, Maintenance, 07/04/19 16:19:00 EST, Tablet, [facility] #[id number], 163, cm, 07/04/19 15:29:00 EST, Height, 84.5, kg, 06/19/19 14:03:00 EST, Dry Weight Start Date: 07/04/19 Status: Ordered Metamucil 3.4 gm/5.2 gm oral powder for reconstitution = 3.4 Gm, By Mouth, 3 times a day, PRN as needed for constipation, # 1,042 Gm, 1 Refills, Maintenance, 07/04/19 16:20:00 EST, REC Powder, [facility] #[id number], 163, cm, 07/04/19 15:29:00 EST, Height, 84.5, [...] Maintenance,05/16/19 9:07:00 EST, Route to Pharmacy Electronically, [facility] #[id number], 163, cm, 05/16/19 8:38:00 EST, Height, 82.3, kg, 05/05/19 16:01:00... Start Date: 05/16/19 Stop Date: 06/15/19 Status: Ordered SEROquel 100 mg oral tablet 100 mg, 1, tablet, By Mouth, 2 times a day, In morning and at 5 p.m., # 60 tablet, Refills 0, Tot. Refills 0, Maintenance, 05/31/19 16:04:00 EST, Route to Pharmacy Electronically, [facility]#[id number], 162, cm, 05/21/19 12:08:00 EST, Height, 82.... Start Date: 05/31/19 Stop Date: 06/30/19 Status: Ordered SEROquel 200 mg oral tablet 200 mg, 1, tablet, By Mouth, Daily at bedtime, # 30 tablet, Refills 0, Tot. 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 2Hx of multiple admissions for detox/substance abuse 3Hx of self-harming behaviors Vital Signs Most recent to oldest [Reference Range]: 1 2 Oxygen Saturation [94-100 %] 98 % (10/31/19 12:31 AM) 99 % (10/31/19 12:08 AM) Pulse Rate [55-90 bpm] 99 bpm *H* (10/31/19 12:31 AM) 95 bpm *H* (10/31/19 12:08 AM) Blood Pressure [90-138/55-84 mm Hg] 118/ 76mm Hg (10/31/19 12:31 AM) Respiratory Rate [16-30 br/min] 18 br/mi n (10/31/19 12:31 AM) Temperature [96.8-100.4 DegF] 97.5 DegF (10/31/19 12:31 AM) Mode of Delivery (Oxygen) Room air (10/31/19 12:31 AM) Blood pressure sites Arm, right (10/31/19 12:31 AM) Temperature Route Oral (10/31/19 12:31 AM) Social History Social History Type Response Smoking Status Current every day dayne guzman entered on: 03/03/14 Sex Female
--- OUTSIDE RECORDS SUMMARY | 2023-05-06 11:46 | XMS_ITS | Continuity of Care Document ---
Author Name Unknown Organization [facility] Address [address] [place] [address]- Care Team Providers Care Pattern Ruler Name Role Phone Estelita Lombardi MD, Colt Primary Care Phys [facility] [place] [facility] [place](s): 10/17/19 - 11/23/19 [facility] [address] [place] [address]- [facility] Attending Physician: Dale Donaldson MD Admitting Physician: Dale Donaldson MD Referring Physician: Farzaneh Bejarano CNM Allergies, [...] 60 tablet, 3 Refills, Maintenance, 09/09/2012:11:00 EDT, [facility]-20199, 163, cm, 09/10/19 13:04:00 EDT, [...] 09/04/19 13:06:00 EDT, Route to Pharmacy Electronically, [facility]-20199, 163, cm, 08/13/19 14:46:00 EDT, Hei... Start Date: 09/04/19 Status: Ordered Docusate 0 Refills, Maintenance, 09/04/18 18:15:51 EDT Start Date: 09/04/18 Status: Ordered docusate sodium 100 mg oral tablet 1 tablet = 100 mg, By Mouth, 2 times a day, PRN for constipation, # 60 tablet, 0 Refills, Maintenance, 07/04/19 16:19:00 EST, Tablet, [facility] #[id number], 163, cm, 07/04/19 15:29:00 EST, Height, 84.5, kg, 06/19/19 14:03:00 EST, Dry Weight Start Date: 07/04/19 Status: Ordered Metamucil 3.4 gm/5.2 gm oral powder for reconstitution = 3.4 Gm, By Mouth, 3 times a day, PRN as needed for constipation, # 1,042 Gm, 1 Refills, Maintenance, 07/04/19 16:20:00 EST, REC Powder, [facility] #[id number], 163, cm, 07/04/19 15:29:00 EST, Height, 84.5, [...] Maintenance,05/16/19 9:07:00 EST, Route to Pharmacy Electronically, [facility] #[id number], 163, cm, 05/16/19 8:38:00 EST, Height, 82.3, kg, 05/05/19 16:01:00... Start Date: 05/16/19 Stop Date: 06/15/19 Status: Ordered SEROquel 100 mg oral tablet 100 mg, 1, tablet, By Mouth, 2 times a day, In morning and at 5 p.m., # 60 tablet, Refills 0, Tot. Refills 0, Maintenance, 05/31/19 16:04:00 EST, Route to Pharmacy Electronically, [facility]#[id number], 162, cm, 05/21/19 12:08:00 EST, Height, 82.... Start Date: 05/31/19 Stop Date: 06/30/19 Status: Ordered SEROquel 200 mg oral tablet 200 mg, 1, tablet, By Mouth, Daily at bedtime, # 30 tablet, Refills 0, Tot. Refills 0, Maintenance,05/31/19 16:05:00 EST, Route to Pharmacy Electronically, [facility] #[id number], 162, cm, 05/21/19 12:08:00 EST, Height, 82.5, [...]
--- OUTSIDE RECORDS SUMMARY | 2023-05-06 11:46 | XMS_ITS | Continuity of Care Document ---
Author Name Unknown Organization [facility] ter Address [address] [place] [address]- Care Team Providers Care Sweep Press Operator Name Role Phone Not on Staff, PCP Primary Care Physician Unavail able [facility] Date[facility] 06/05/19 - 06/06/[address] [address]- [facility] Encounter Diagnosis Asymptomatic bacteriuria(Final) - 06/06/19 Discharge Disposition: A-D/C Home Attending Physician: Angélica Grier MD Admitting Physician: Angélica Grier MD Referring Physician: Not on Staff, Referring [...] 06/13/19 9:03:00 EST, 06/06/19 9:03:00 EST, Capsule, [facility] #[id number], 162, cm, 05/21/19 12:08:00 EST, Height, 83, [...] Maintenance,05/16/19 9:07:00 EST, Route to Pharmacy Electronically, [facility] #[id number], 163, cm, 05/16/19 8:38:00 EST, Height, 82.3, kg, 05/05/19 16:01:00... Start Date: 05/16/19 Stop Date: 06/15/19 Status: Ordered SEROquel 100 mg oral tablet 100 mg, 1, tablet, By Mouth, 2 times a day, In morning and at 5 p.m., # 60 tablet, Refills 0, Tot. Refills 0, Maintenance, 05/31/19 16:04:00 EST, Route to Pharmacy Electronically, [facility]#[id number], 162, cm, 05/21/19 12:08:00 EST, Height, 82.... Start Date: 05/31/19 Stop Date: 06/30/19 Status: Ordered SEROquel 200 mg oral tablet 200 mg, 1, tablet, By Mouth, Daily at bedtime, # 30 tablet, Refills 0, Tot. 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 2Hx of multiple admissions for detox/substance abuse 3Hx of self-harming behaviors Results Orders for Microbiology Reports Name Date Wet Prep 06/06/19 Urine Culture (URINE CULTURE) 06/05/19 Microbiology Reports TEST:Wet Prep STATUS:Auth (Verified) BODY SITE: SOURCE:VAGINA COLLECTED DATE/TIME:06/06/19 1:49 AM Wet Prep SPECIMEN DESCRIPTION : VAGINAL SPECIMEN SPECIAL REQUESTS : NONE DIRECT EXAM : 4+ WHITE BLOOD CELLS NO TRICHOMONAS,YEAST,OR CLUE CELLS OBSERVED REPORT STATUS : FINAL 06/06/2019 TEST:Urine Culture STATUS:Auth (Verified) BODY SITE: SOURCE:URINE COLLECTED DATE/TIME:06/05/19 5:30 PM Urine Culture SPECIMEN DESCRIPTION : URINE CLEAN CATCH/MIDSTREAM SPECIAL REQUESTS : NONE Reflexed from [id number] CULTURE : NO GROWTH REPORT STATUS : FINAL 06/06/2019 Vital Signs Most recent to oldest [Reference Range]: 1 2 3 Weight 83.0 kg (06/06/19 6:17 AM) 83.0 kg (06/06/19 4:30 AM) 83.0 kg (06/05/19 8:39 PM) Oxygen Saturation [94-100 %] 99 % (06/06/19 8:58 AM) 99 % (06/06/19 6:17 AM) 98 % (06/06/19 4:30 AM) Pulse Rate [55-90 bpm] 84 bpm (06/06/19 8:58 AM) 84 bpm (06/06/19 6:17 AM) 82 bpm (06/06/19 4:30 AM) Blood Pressure [90-138/55-84 mm Hg] 110/70mm Hg (06/06/19 8:58 AM) 96/49mm Hg (06/06/19 6:17 AM) 107/66mm Hg (06/06/19 4:30 AM) Respiratory Rate [16-30 br/min] 16 br/min (06/06/19 8:58 AM) 18 br/min (06/06/19 6:17 AM) 20 br/min (06/06/19 5:22 AM) Temperature [96.8-100.4 DegF] 97.8 DegF (06/06/19 6:17 AM) 98.0 DegF (06/06/19 4:30 AM) 97.8 DegF (06/06/19 2:58 AM) Mode of Delivery (Oxygen) Room air (06/06/19 8:58 AM) Room air (06/06/19 6:17 AM) Room air (06/06/19 4:30 AM) Blood pressure sites Arm, left (06/06/19 8:58 AM) Arm, left (06/06/19 6:17 AM) Arm, right (06/06/19 4:30 AM) Temperature Route Oral (06/06/19 6:17 AM) Oral (06/06/19 4:30 AM) Oral (06/06/19 2:58 AM) Dry Weight 83.0 kg (06/06/19 6:17 AM) 83.0 kg (06/06/19 4:30 AM) 83.0 kg (06/05/19 8:39 PM) Weight Obtained Via Standing scale (06/05/19 3:11 PM) Dry Weight Obtained Via Standing scale (06/05/19 3:11 PM) Social History Social History Type Response Smoking Status Current every day dayne guzman entered on: 03/03/14 Sex Female
--- OUTSIDE RECORDS SUMMARY | 2023-05-06 11:46 | XMS_ITS | Continuity of Care Document ---
Author Name Unknown Organization [facility] ter Address [address] [place] [address]- Care Team Providers Care Logistics Vice President Name Role Phone Not on Staff, PCP Primary Care Physician Unavail able [facility] Date(s): 05/16/19 - 05/16/[address] [address]- [facility] Attending Physician: Veronica Thomas NP Allergies, Adverse [...] Maintenance,05/16/19 9:07:00 EST, Route to Pharmacy Electronically, [facility] #[id number], 163, cm, 05/16/19 8:38:00 EST, Height, 82.3, kg, 05/05/19 16:01:00... Start Date: 05/16/19 Stop Date: 06/15/19 Status: Ordered SEROquel 100 mg oral tablet 100 mg, 1, tablet, By Mouth, Daily, At 1700, # 30 tablet, Refills 0, Tot. Refills 0, Maintenance, 05/16/19 9:03:00 EST, Route to Pharmacy Electronically, [facility] #[id number], 163, cm, 198:38:00 EST, Height, 82.3, kg, 05/05/19 16:01:00 ES... Start Date: 05/16/19 Stop Date: 06/15/19 Status: Ordered SEROquel 200 mg oral tablet 200 mg, By Mouth, 2 times a day, In a.m. and at bedtime, # 60 tablet, Refills 0, Tot. 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 2Hx of multiple admissions for detox/substance abuse 3Hx of self-harming behaviors Social History Social History Type Response Smoking Status Current every day dayne guzman entered on: 03/03/14 Sex
--- OUTSIDE RECORDS SUMMARY | 2023-05-06 11:46 | XMS_ITS | Continuity of Care Document ---
Author Name Unknown Organization [facility] Address [address] [place] [id number]- Care Team Providers Care Freight Elevator Erector Name Role Phone Estelita Lombardi MD, Colt Primary Care Phys ician Encounter [facility] [place] Date(s): 02/27/20 - 03/28/[address] [address]- Attending Physician: Lyn Gloria Admitting Physician: Lyn Gloria Referring Physician: AdmtrLyn Allergies, Adverse Reactions, Alerts Substance Reaction Severity [...] 11/24/19 9:50:00 EDT, Route to Pharmacy Electronically, [facility]... Start Date: 11/24/19 Status: Ordered aspirin 81 mg oral tablet See Instructions, 2 tablet By Mouth Daily at bedtime, # 60 tablet, 3 Refills, Maintenance, 09/09/2012:11:00 EDT, [facility]-[id number], 163, cm, 09/10/19 13:04:00 EDT, [...] 09/04/19 13:06:00 EDT, Route to Pharmacy Electronically, [facility]-[id number], 163, cm, 08/13/19 14:46:00 EDT, Hei... Start Date: 09/04/19 Status: Ordered Docusate 0 Refills, Maintenance, 09/04/18 18:15:51 EDT Start Date: 09/04/18 Status: Ordered docusate sodium 100 mg oral tablet 1 tablet = 100 mg, By Mouth, 2 times a day, PRN for constipation, # 60 tablet, 0 Refills, Maintenance, 07/04/19 16:19:00 EST, Tablet, [facility] #[id number], 163, cm, 07/04/19 15:29:00 EST, Height, 84.5, [...] Refills, Maintenance, 07/04/19 16:20:00 EST, REC Powder, [id number], 163, cm, 07/04/19 15:29:00 EST, Height, 84.5, kg, 06/19/19 14:03:00 EST, Dry Weight Start Date: 07/04/19 Status: Ordered Methadone = 175 mg, By Mouth, Daily, 0 Refills, Maintenance, 09/13/18 15:28:27 EDT, Tablet Start Date: 09/13/18 Status: Ordered Ortho Micronor 0.35 mg oral tablet 1 tablet = 0.35 mg, By Mouth, Daily, # 28 tablet, 2 Refills, Maintenance, 11/24/19 8:56:00 EDT, Tablet, [facility] #[id number], 162, cm, 11/23/19 4:48:00 EDT, Height, 80.3, kg, 11/22/19 4:59:00 EDT, Dry Weight Start Date: 11/24/19 Status: Ordered prazosin 5 mg oral capsule 5 mg, 1, capsule, By Mouth, Daily at bedtime, # 30 capsule, Refills 0, Tot. Refills 0, Maintenance,05/16/19 9:07:00 EST, Route to Pharmacy Electronically, [facility] #[id number], 163, cm, 05/16/19 8:38:00 EST, Height, 82.3, kg, 05/05/19 16:01:00... Start Date: 05/16/19 Stop Date: 06/15/19 Status: Ordered SEROquel 100 mg oral tablet 100 mg, 1, tablet, By Mouth, 2 times a day, In morning and at 5 p.m., # 60 tablet, Refills 0, Tot. Refills 0, Maintenance, 05/31/19 16:04:00 EST, Route to Pharmacy Electronically, [facility]#[id number], 162, cm, 05/21/19 12:08:00 EST, Height, 82.... Start Date: 05/31/19 Stop Date: 06/30/19 Status: Ordered SEROquel 200 mg oral tablet 200 mg, 1, tablet, By Mouth, Daily at bedtime, # 30 tablet, Refills 0, Tot. 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 2Hx of multiple admissions for detox/substance abuse 3Hx of self-harming behaviors Social History Social History Type Response Smoking Status Current every day dayne guzman entered on: 03/03/14 Sex Female
--- OUTSIDE RECORDS SUMMARY | 2023-05-06 11:46 | XMS_ITS | Continuity of Care Document ---
Author Name Unknown Organization [facility] Address [address] [place] [id number]- Care Team Providers Care Service Plumber Name Role Phone Estelita Lombardi MD, Colt Primary Care Phys [facility] [facility] Date(s): 09/27/19 - 10/04/[address] [address]- [facility] Attending Physician: Ebony Mayorga DO Admitting Physician: [...] 60 tablet, 3 Refills, Maintenance, 09/09/2012:11:00 EDT, [facility][id number], 163, cm, 09/10/19 13:04:00 EDT, [...] 09/04/19 13:06:00 EDT, Route to Pharmacy Electronically, [facility]-[id number], 163, cm, 08/13/19 14:46:00 EDT, Hei... Start Date: 09/04/19 Status: Ordered Docusate 0 Refills, Maintenance, 09/04/18 18:15:51 EDT Start Date: 09/04/18 Status: Ordered docusate sodium 100 mg oral tablet 1 tablet = 100 mg, By Mouth, 2 times a day, PRN for constipation, # 60 tablet, 0 Refills, Maintenance, 07/04/19 16:19:00 EST, Tablet, [facility] #[id number], 163, cm, 07/04/19 15:29:00 EST, Height, 84.5, kg, 06/19/19 14:03:00 EST, Dry Weight Start Date: 07/04/19 Status: Ordered Macrobid macrocrystals-monohydrate 100 mg oral capsule 1 capsule = 100 mg, By Mouth, 2 times a day, for 5 days, # 10 capsule, 0 Refills, Acute 10/07/19 14:17:00 EDT, 10/02/19 14:17:00 EDT, Capsule, [facility] #[id number], 163, cm, 09/27/19 12:48:00 EDT, Height, 89, kg, 09/18/19 18:20:00 EDT, Dry Weight Start Date: 10/02/19 Stop Date: 10/07/19 Status: Ordered Metamucil 3.4 gm/5.2 gm oral powder for reconstitution = 3.4 Gm, By Mouth, 3 times a day, PRN as needed for constipation, # 1,042 Gm, 1 Refills, Maintenance, 07/04/19 16:20:00 EST, REC Powder, [facility] #[id number], 163, cm, 07/04/19 15:29:00 EST, Height, 84.5, [...] Maintenance,05/16/19 9:07:00 EST, Route to Pharmacy Electronically, [facility] #[id number], 163, cm, 05/16/19 8:38:00 EST, Height, 82.3, kg, 05/05/19 16:01:00... Start Date: 05/16/19 Stop Date: 06/15/19 Status: Ordered SEROquel 100 mg oral tablet 100 mg, 1, tablet, By Mouth, 2 times a day, In morning and at 5 p.m., # 60 tablet, Refills 0, Tot. Refills 0, Maintenance, 05/31/19 16:04:00 EST, Route to Pharmacy Electronically, [facility]#[id number], 162, cm, 05/21/19 12:08:00 EST, Height, 82.... Start Date: 05/31/19 Stop Date: 06/30/19 Status: Ordered SEROquel 200 mg oral tablet 200 mg, 1, tablet, By Mouth, Daily at bedtime, # 30 tablet, Refills 0, Tot. 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 2Hx of multiple admissions for detox/substance abuse 3Hx of self-harming behaviors Vital Signs Most recent to oldest [Reference Range]: 1 Height 163 cm (09/27/19 12:48 PM) Social History Social History Type Response Smoking Status Current every day dayne guzman entered on: 03/03/14 Sex Female
--- OUTSIDE RECORDS SUMMARY | 2023-05-06 11:46 | XMS_ITS | Continuity of Care Document ---
Author Name Unknown Organization [facility] Address [address] [place] [phone]- Care Team Providers Care Lining Cementer Name Role Phone Estelita Lombardi MD, Colt Primary Care Phys [facility] Encounter [place] Date(s): 08/01/19 - 09/28/[address] [address]- [facility] Attending Physician: Not on Staff, [...] 60 tablet, 3 Refills, Maintenance, 09/09/2012:11:00 EDT, [facility]-20199, 163, cm, 09/10/19 13:04:00 EDT, [...] 09/04/19 13:06:00 EDT, Route to Pharmacy Electronically, [facility], 163, cm, 08/13/19 14:46:00 EDT, Hei... Start Date: 09/04/19 Status: Ordered Docusate 0 Refills, Maintenance, 09/04/18 18:15:51 EDT Start Date: 09/04/18 Status: Ordered docusate sodium 100 mg oral tablet 1 tablet = 100 mg, By Mouth, 2 times a day, PRN for constipation, # 60 tablet, 0 Refills, Maintenance, 07/04/19 16:19:00 EST, Tablet, [facility] #[id number], 163, cm, 07/04/19 15:29:00 EST, Height, 84.5, kg, 06/19/19 14:03:00 EST, Dry Weight Start Date: 07/04/19 Status: Ordered Metamucil 3.4 gm/5.2 gm oral powder for reconstitution = 3.4 Gm, By Mouth, 3 times a day, PRN as needed for constipation, # 1,042 Gm, 1 Refills, Maintenance, 07/04/19 16:20:00 EST, REC Powder, [facility] #[id number], 163, cm, 07/04/19 15:29:00 EST, Height, 84.5, [...] Maintenance,05/16/19 9:07:00 EST, Route to Pharmacy Electronically, [facility] #[id number], 163, cm, 05/16/19 8:38:00 EST, Height, 82.3, kg, 05/05/19 16:01:00... Start Date: 05/16/19 Stop Date: 06/15/19 Status: Ordered SEROquel 100 mg oral tablet 100 mg, 1, tablet, By Mouth, 2 times a day, In morning and at 5 p.m., # 60 tablet, Refills 0, Tot. Refills 0, Maintenance, 05/31/19 16:04:00 EST, Route to Pharmacy Electronically, [facility]#[id number], 162, cm, 05/21/19 12:08:00 EST, Height, 82.... Start Date: 05/31/19 Stop Date: 06/30/19 Status: Ordered SEROquel 200 mg oral tablet 200 mg, 1, tablet, By Mouth, Daily at bedtime, # 30 tablet, Refills 0, Tot. 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 2Hx of multiple admissions for detox/substance abuse 3Hx of self-harming behaviors Social History Social History Type Response Smoking Status Current every day dayne guzman entered on: 03/03/14 Sex Female
--- OUTSIDE RECORDS SUMMARY | 2023-05-06 11:46 | XMS_ITS | Continuity of Care Document ---
Author Name Unknown Organization [facility] Address [address] [place] [id number]- Care Team Providers Care Manager Six Sigma Name Role Phone Estelita Lombardi MD, Colt Primary Care Phys [facility] Encounter [facility] Date(s): 08/22/19 - 09/01/[address] [address]- [facility] Attending Physician: Lyn Gloria Admitting Physician: Lyn Gloria Referring Physician: Lyn Gloria Allergies, Adverse Reactions, Alerts Substance Reaction Severity [...] 0 Refills, Maintenance, 07/04/19 16:19:00 EST, Tablet, [facility][id number], 163, cm, 07/04/19 15:29:00 EST, Height, 84.5, kg, 06/19/19 14:03:00 EST, Dry Weight Start Date: 07/04/19 Status: Ordered Metamucil 3.4 gm/5.2 gm oral powder for reconstitution = 3.4 Gm, By Mouth, 3 times a day, PRN as needed for constipation, # 1,042 Gm, 1 Refills, Maintenance, 07/04/19 16:20:00 EST, REC Powder, [id number], 163, cm, 07/04/19 15:29:00 EST, Height, 84.5, [...] Maintenance,05/16/19 9:07:00 EST, [facility] to Pharm[facility] Electronically, [id number], 163, cm, 05/16/19 8:38:00 EST, Height, 82.3, kg, 05/05/19 16:01:00... Start Date: 05/16/19 Stop Date: 06/15/19 Status: Ordered SEROquel 100 mg oral tablet 100 mg, 1, tablet, By Mouth, 2 times a day, In morning and at 5 p.m., # 60 tablet, Refills 0, Tot. Refills 0, Maintenance, 05/31/19 16:04:00 EST, [facility]ically, [id number], 162, cm, 05/21/19 12:08:00 EST, Height, 82.... Start Date: 05/31/19 Stop Date: 06/30/19 Status: Ordered SEROquel 200 mg oral tablet 200 mg, 1, tablet, By Mouth, Daily at bedtime, # 30 tablet, Refills 0, Tot. 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 2Hx of multiple admissions for detox/substance abuse 3Hx of self-harming behaviors Social History Social History Type Response Smoking Status Current every day dayne guzman entered on: 03/03/14 Sex Female
--- OUTSIDE RECORDS SUMMARY | 2023-05-06 11:46 | XMS_ITS | Continuity of Care Document ---
Author Name Unknown Organization [facility] Address [address] [place] [id number]- Care Team Providers Care Logging Specialist Name Role Phone Estelita Lombardi MD, Colt Primary Care Phys [facility] Encounter [facility] [place] Date(s): 11/21/19 - 11/24/[address] [address]- [facility] Discharge Disposition: A-D/C Home Attending Physician: Tiarra Pendleton MD Admitting Physician: Tiarra Pendleton MD Referring Physician: Tiarra Pendleton MD Allergies, Adverse Reactions, Alerts Substance Reaction [...] 60 tablet, 3 Refills, Maintenance, 09/09/2012:11:00 EDT, [facility]-20199, 163, cm, 09/10/19 13:04:00 EDT, Height, [...] 09/04/19 13:06:00 EDT, Route to Pharmacy Electronically, [facility]201[facility], 163, cm, 08/13/19 14:46:00 EDT, Hei... Start Date: 09/04/19 Status: Ordered Docusate 0 Refills, Maintenance, 09/04/18 18:15:51 EDT Start Date: 09/04/18 Status: Ordered docusate sodium 100 mg oral tablet 1 tablet = 100 mg, By Mouth, 2 times a day, PRN for constipation, # 60 tablet, 0 Refills, Maintenance, 07/04/19 16:19:00 EST, Tablet, [facility] #[id number], 163, cm, 07/04/19 15:29:00 EST, Height, 84.5, [...] Refills, Maintenance, 07/04/19 16:20:00 EST, REC Powder, [facility] #[id number], 163, cm, 07/04/19 15:29:00 EST, Height, 84.5, kg, 06/19/19 14:03:00 EST, Dry Weight Start Date: 07/04/19 Status: Ordered Methadone = 175 mg, By Mouth, Daily, 0 Refills, Maintenance, 09/13/18 15:28:27 EDT, Tablet Start Date: 09/13/18 Status: Ordered nicotine 14 mg/24 hr transdermal film, extended release 1 patch, Topically, Daily, for 7 days, # 7 patch, 0 Refills, Acute 12/01/19 9:49:00 EDT, 11/24/19 9:49:00 EDT, Patch, [facility], 1 patch Topically Daily,x7 days, 162, cm, 11/23/19 4:48:00 EDT, Height, 80.3, kg, 11/22/19 4:59:00 EDT, Dry... Start Date: 11/24/19 Stop Date: 12/01/19 Status: Ordered Ortho Micronor 0.35 mg oral tablet 1 tablet = 0.35 mg, By Mouth, Daily, # 28 tablet, 2 Refills, Maintenance, 11/24/19 8:56:00 EDT, Tablet, [facility] #[id number], 162, cm, 11/23/19 4:48:00 EDT, Height, 80.3, kg, 11/22/19 4:59:00 EDT, Dry Weight Start Date: 11/24/19 Status: Ordered prazosin 5 mg oral capsule 5 mg, 1, capsule, By Mouth, Daily at bedtime, # 30 capsule, Refills 0, Tot. Refills 0, Maintenance,05/16/19 9:07:00 EST, Route to Pharmacy Electronically, [facility] #[id number], 163, cm, 05/16/19 8:38:00 EST, Height, 82.3, kg, 05/05/19 16:01:00... Start Date: 05/16/19 Stop Date: 06/15/19 Status: Ordered SEROquel 100 mg oral tablet 100 mg, 1, tablet, By Mouth, 2 times a day, In morning and at 5 p.m., # 60 tablet, Refills 0, Tot. Refills 0, Maintenance, 05/31/19 16:04:00 EST, Route to Pharmacy Electronically, [facility][id number], 162, cm, 05/21/19 12:08:00 EST, Height, 82.... Start Date: 05/31/19 Stop Date: 06/30/19 Status: Ordered SEROquel 200 mg oral tablet 200 mg, 1, tablet, By Mouth, Daily at bedtime, # 30 tablet, Refills 0, Tot. 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 2Hx of multiple admissions for detox/substance abuse 3Hx of self-harming behaviors Vital Signs Most recent to oldest [Reference Range]: 1 2 3 Height 162 cm (11/24/19 10:30 AM) 162 cm (11/23/19 4:00 AM) 162 cm (11/23/19 12:00 AM) Weight 90.5 kg (11/22/19 4:59 AM) Oxygen Saturation [94-100 %] 93 % *L* (11/23/19 4:00 AM) 98 % (11/23/19 12:00 AM) 99 % (11/22/19 9:52 AM) Pulse Rate [55-90 bpm] 96 bpm *H* (11/24/19 10:30 AM) 86 bpm (11/23/19 9:00 PM) 90 bpm (11/23/19 12:30 PM) Body Mass Index [18.5-24.99] 34.48 *>HHI* (11/22/19 4:59 AM) Blood Pressure [90-138/55-84 mm Hg] 139/81mm Hg *H* (11/24/19 10:30 AM) 128/72mm Hg (11/24/19 2:06 AM) 128/82mm Hg (11/23/19 9:00 PM) Respiratory Rate [16-30 br/min] 18 br/min (11/24/19 11:00 AM) 18 br/min (11/24/19 10:30 AM) 18 br/min (11/24/19 9:55 AM) Temperature [96.8-100.4 DegF] 98.7 DegF (11/24/19 10:30 AM) 98.6 DegF (11/23/19 9:00 PM) 98.1 DegF (11/23/19 12:30 PM) Mode of Delivery (Oxygen) Room air (11/23/19 4:00 AM) Room air (11/23/19 12:00 AM) Blood pressure sites Arm, right (11/22/19 5:20 PM) Arm, left (11/22/19 4:59 AM) Temperature Route Oral (11/24/19 10:30 AM) Oral (11/23/19 9:00 PM) Oral (11/23/19 12:30 PM) Dry Weight 80.3 kg (11/22/19 4:59 AM) Social History Social History Type Response Smoking Status Current every day dayne guzman entered on: 03/03/14 Sex Female
[2023-05-06] MEDS: Ketorolac Tromethamine 60 MG/2 ML VIAL IM (12:56)
[2023-05-06] MEDS: Cyclobenzaprine HCl 5 MG TABLET PO (12:56)
[2023-05-06] MEDS: Lidocaine 4 % Patch ADH..PATCH 1 PATCH TRANSDERMA (12:56)
--- NOTE | 2023-05-06 15:02 | PC.NURSE ---
Patient reporting feeling better, now reports 4/10 pain instead of 8/10
== END 2023-05-06 15:46 | disposition home or self-care (01) ==
PROVIDERS: Emergency Provider Emergency Medicine
DX: S39.012A Strain of muscle, fascia and tendon of lower back, initial encounter (principal); X58.XXXA Exposure to other specified factors, initial encounter; Y93.9 Activity, unspecified; Y92.9 Unspecified place or not applicable; Y99.9 Unspecified external cause status
CPT/HCPCS: 72100; 96372; 99284; J1885

== ENCOUNTER 2023-07-22 16:24 | Emergency (ER) | payer MEDICAID, SELFPAY ==
--- NOTE | ~2023-07-22 | XR_ITS ---
EXAMINATION: XR CHEST CLINICAL INFORMATION: Chest pain COMPARISON: None available. TECHNIQUE: 2 views of the chest were obtained. FINDINGS: Heart is normal in size. No acute vascular congestion. No focal airspace consolidations or pleural effusions. Linear atelectasis versus scarring is seen in the lingula XR/XR chest 2V IMPRESSION: No acute process
--- NOTE | 2023-07-22 16:26 | ECG_ITS ---
Test Reason : CHEST PAIN Blood Pressure : / mmHG Vent. Rate : 066 BPM Atrial Rate : 066 BPM P-R Int : 186 ms QRS Dur : 076 ms QT Int : 440 ms P-R-T Axes : 000 160 161 degrees QTc Int : 461 ms ?lead reversal Normal sinus rhythm Right axis deviation lateral infarct/ischemia vs lead reversal Abnormal ECG When compared with ECG of 20-JUN-2018 20:16, QRS axis Shifted right Referred By: Sergio Nunes Electronically Signed By:TERESA DAMON
[2023-07-22 16:58] VITALS: BP 132/63; PULSE 67; RESP 18; TEMP 36.1; O2SAT 96; BMI 38.0
--- NOTE | 2023-07-22 16:59 | ED_ITS ---
HPI - General Adult General Stated complaint: chest ,lower back pain Related Data Previous Rx's Medication Instructions Recorded cyclobenzaprine 5 mg tablet 5 mg PO BEDTIME PRN muscle spasm 05/06/23 #7 tabs lidocaine 5 % topical patch 1 patch topical DAILY #15 ea 05/06/23 (Lidoderm) naproxen 500 mg tablet 500 mg PO Q8-12H PRN pain (scale 05/06/23 score 4-6) #14 tabs Allergies Allergy/AdvReac Type Severity Reaction Status Date / Time aripiprazole [From ABILIFY] Allergy Unknown SWELLING Verified 05/06/23 11:27 lamotrigine [From LAMICTAL] Allergy Unknown UNKNOWN Verified 05/06/23 11:27 PENDING SALE TO [facility] Social History Social History Unable to assess alcohol history related to: Unknown Course Course Course Narrative: RME- 38 year old female presents for evaluation of left sided chest pain that started today. She reports that she has had back pain for a while. Plan for cardiac workup Discharge Plan Discharge Prescriptions: No Action cyclobenzaprine 5 mg tablet 5 mg PO BEDTIME PRN (Reason: muscle spasm) Qty: 7 0RF lidocaine [Lidoderm] 5 % adhesive patch,medicated 1 patch topical DAILY Qty: 15 0RF Rx Instructions: leave on most painful area for up to 12 hrs naproxen 500 mg tablet 500 mg PO Q8-12H PRN (Reason: pain (scale score 4-6)) Qty: 14 0RF
[2023-07-22 17:33] LABS: MANUAL DIFF FLAG NO
[2023-07-22 17:46] LABS: Basophils Percent Auto 0.5 % (0-2); Eosinophils Absolute Auto 0.3 X10*3/uL (0.0-0.4); Hematocrit 37.2 % (37.0-47.0); Hemoglobin 12.9 g/dl (12.0-16.0); Imm Gran Abs Auto 0.04 X10*3/uL (0.00-0.03); Imm Gran Pct Auto 0.5 % (0.0-0.4); Lymphocytes Absolute Auto 3.1 X10*3/uL (1.2-4.9); Lymphocytes Percent Auto 36.6 % (20-40); Mean Corpuscular HGB Conc 34.7 g/dl (31.0-35.0); Mean Corpuscular Hemoglobin 31.3 pg (27.0-33.0); Mean Corpuscular Volume 90.3 fL (80.0-98.0); Mean Platelet Volume 10.6 fL (9.4-12.3); Monocytes Absolute Auto 0.5 X10*3/uL (0.1-1.2); Monocytes Percent Auto 6.3 % (2-11); Neutrophils Absolute Auto 4.5 x10*3/uL (2.0-8.3); Neutrophils Percent Auto 52.1 % (45-73); Platelet Count 222 X10*3/uL (160-400); Red Blood Count 4.12 X10*6/uL (4.20-5.50); Red Cell Distribution Width 12.9 % (11.0-16.0); White Blood Count 8.6 X10*3/uL (4.8-10.8)
[2023-07-22 17:58] LABS: Alanine Aminotransferase 54 U/L (0-31); Albumin Level 3.9 g/dL (3.5-5.0); Alkaline Phosphatase 76 U/L (39-117); Anion Gap 11 (12-20); Aspartate Amino Transferase 51 U/L (5-31); Bilirubin Total 0.5 mg/dL (0.0-1.0); Blood Urea Nitrogen 7 mg/dL (9-16); Calcium 9.5 mg/dL (8.4-10.2); Carbon Dioxide 26 mmol/L (22-29); Chloride 105 mmol/L (96-108); Creatinine Clr Calc Pharmacy 123.3; Estimated Glomerular Filt Rate > 60; Glucose Random 85 mg/dL (60-115); Lipase 16 U/L (8-78); Potassium 4.1 mmol/L (3.3-5.1); Sodium 138 mmol/L (135-145); Total Protein 7.2 g/dL (6.5-8.0)
[2023-07-22 18:06] LABS: Troponin-I High Sensitivity < 2.7 ng/L (<3.5-17.0)
== END 2023-07-22 20:10 | disposition left against medical advice (07) ==
PROVIDERS: Physician Assistant; Emergency Provider Emergency Medicine
DX: R07.9 Chest pain, unspecified (principal); M54.9 Dorsalgia, unspecified
CPT/HCPCS: 36415; 71046; 80053; 83690; 84484; 85025; 93005; 99283

== ENCOUNTER → 2023-07-22 16:26 | Outpatient (BNV) | payer MEDICAID, SELFPAY | PROVIDERS: Emergency Provider Emergency Medicine; Visit Provider Internal Medicine | DX: R94.31 Abnormal electrocardiogram [ECG] [EKG] (principal) | CPT/HCPCS: 93010 ==

== ENCOUNTER 2023-07-28 09:57 | Outpatient (REF) | payer MEDICAID, SELFPAY ==
[2023-07-29 04:24] LABS: ~HepC Num1 13.17 S/CO (0.00-0.79); ~Hepatitis C Antibody Reactive (Nonreactive)
[2023-08-02 18:29] LABS: HCV Log PCR 6.67 Log IU/mL (NOT DETECTED)
== END 2023-07-28 09:58 | disposition home or self-care (01) ==
LOC: HO.CHCLDS 09:57
PROVIDERS: Visit Provider Internal Medicine
DX: B18.2 Chronic viral hepatitis C (principal)
CPT/HCPCS: 36415; 86803; 87522

== ENCOUNTER 2023-08-30 11:15 | Outpatient (REF) | payer MEDICAID, SELFPAY ==
[2023-08-30 14:28] LABS: Appearance Urine Clear; Color Urine Dark Yellow; Glucose Urine UA Negative (Negative); Leukocyte Esterase Urine Trace (Negative); Nitrite Urine Negative (Negative); Specific Gravity - Urine 1.025 (1.005-1.025); UMIC TRIGGER UACC YES; Urine Blood Negative (Negative); Urine Ketones Trace mg/dL (Negative); Urine Protein Negative (Neg-Trace)
[2023-08-30 14:34] LABS: Bacteria Urine Trace (None Seen); Hyaline Casts Urine 0-2 /LPF (0-2); RBC Urine 0-2 /HPF (0-2); WBC Urine 0-5 /HPF (0-5)
[2023-08-30 14:38] LABS: MANUAL DIFF FLAG NO
[2023-08-30 14:50] LABS: Basophils Percent Auto 0.7 % (0-2); Eosinophils Absolute Auto 0.3 X10*3/uL (0.0-0.4); Eosinophils Percent Auto 4.3 % (0-4); Hematocrit 40.9 % (37.0-47.0); Hemoglobin 14.1 g/dl (12.0-16.0); Imm Gran Abs Auto 0.01 X10*3/uL (0.00-0.03); Imm Gran Pct Auto 0.2 % (0.0-0.4); Lymphocytes Percent Auto 32.1 % (20-40); Mean Corpuscular HGB Conc 34.5 g/dl (31.0-35.0); Mean Corpuscular Hemoglobin 30.9 pg (27.0-33.0); Mean Corpuscular Volume 89.5 fL (80.0-98.0); Mean Platelet Volume 11.3 fL (9.4-12.3); Monocytes Absolute Auto 0.3 X10*3/uL (0.1-1.2); Monocytes Percent Auto 5.3 % (2-11); Neutrophils Absolute Auto 3.5 x10*3/uL (2.0-8.3); Neutrophils Percent Auto 57.4 % (45-73); Platelet Count 237 X10*3/uL (160-400); Red Blood Count 4.57 X10*6/uL (4.20-5.50); Red Cell Distribution Width 12.6 % (11.0-16.0); White Blood Count 6.1 X10*3/uL (4.8-10.8)
[2023-08-30 15:16] LABS: Alanine Aminotransferase 63 U/L (0-31); Albumin Level 4.2 g/dL (3.5-5.0); Alkaline Phosphatase 78 U/L (39-117); Anion Gap 11 (12-20); Aspartate Amino Transferase 67 U/L (5-31); Bilirubin Total 0.7 mg/dL (0.0-1.0); Blood Urea Nitrogen 6 mg/dL (9-16); Carbon Dioxide 24 mmol/L (22-29); Chloride 109 mmol/L (96-108); Estimated Glomerular Filt Rate > 60; Glucose Random 92 mg/dL (60-115); Lipase 14 U/L (8-78); Potassium 4.1 mmol/L (3.3-5.1); Sodium 140 mmol/L (135-145); Total Protein 7.6 g/dL (6.5-8.0)
== END 2023-08-30 11:16 | disposition home or self-care (01) ==
LOC: HO.CHCLDS 11:15
PROVIDERS: Visit Provider Family Medicine
DX: R10.32 Left lower quadrant pain (principal)
CPT/HCPCS: 36415; 80053; 81001; 83690; 85025

== ENCOUNTER 2023-09-11 09:48 | Outpatient (REF) | payer MEDICAID, SELFPAY ==
[2023-09-12 04:16] LABS: Hepatitis A Antibody IgG REACTIVE (Nonreactive)
[2023-09-12 04:28] LABS: HBS Num1 110.25 mIU/mL (0-7.99); HBc Num1 4.37 S/CO (0.00-0.79); HBsAGNum1 0.35 S/CO (0.00-0.99); HIV AB/AG Nonreactive (Nonreactive); HIV Num 1 0.05 S/CO (0.00-0.99); Hepatitis B Surface Antigen Negative (Negative); ~Hepatitis B Surface Antibody REACTIVE (Nonreactive)
[2023-09-12 05:30] LABS: HBc Num2 4.43 S/CO; HBc Num3 4.53 S/CO
[2023-09-12 05:31] LABS: Hepatitis B Core Antibody Reactive (Nonreactive)
[2023-09-14 15:09] LABS: Hepatitis C Genotype 1a
== END 2023-09-11 09:49 | disposition home or self-care (01) ==
LOC: HO.CHCLDS 09:48
PROVIDERS: Visit Provider Internal Medicine
DX: Z11.4 Encounter for screening for human immunodeficiency virus [HIV] (principal); B18.2 Chronic viral hepatitis C
CPT/HCPCS: 36415; 85610; 86704; 86706; 86708; 87340; 87389; 87902

== ENCOUNTER 2024-12-10 09:00 | Outpatient (REF) | payer MEDICAID, SELFPAY ==
--- OUTSIDE RECORDS SUMMARY | 2024-12-10 09:29 | XMS_ITS | Clinical Summary ---
Author Organization [facility] Address [address] [place] [address] Phone Care Team Providers Care Association Executive Name Role Phone Physician, Pcp Unknown Primary Care Provider Jen vailable Allergies Active Allergy Reactions Criticality Noted Date Comments Aripiprazole 06/28/2024 Lamotrigine 06/28/2024 Medical History Medical History Date Comments Depression Social History Tobacco Use Types Packs/Day Years Used Date Smoking Tobacco: Light Smoker Smokeless Tobacco: Never Alcohol Use Standard Drinks/Week Comments Not Currently 0 (1 standard drink = 0.6 oz pur e alcohol) Comments Unknown Sex and Gender Information Value Date Recorded Sex Assigned at Female 08/29/2024 8:24 AM EDT Legal Sex Female 2:43 PM EST Gender Identity Female 08/29/2024 8:24 AM EDT Sexual Orientation Straight 08/29/2024 8: 24 AM EDT Obstetrics History Last Filed Vital Signs Vital Sign Reading Time Taken Comments Blood Pressure 133/77 08/29/2024 7:44 AM EDT Pulse 77 08/29/2024 7:44 AM EDT Temperature 36.9 C (98.4 F) 08/29/2024 7:44 AM EDT Respiratory Rate 16 08/29/2024 7:44 AM EDT Oxygen Saturation 99% 08/29/2024 7:44 AM EDT Inhaled Oxygen Concentration - - Weight 95.3 kg (210 lb) 08/29/2024 7:41 AM EDT Height 162.6 cm (5' 4 ) 08/29/2024 7:41 AM EDT Body Mass Index 36.05 08/29/2024 7:41 AM EDT Plan of Treatment Health Maintenance Due Date Last Done Comments Hepatitis A Vaccines (1 of 2 - Risk 2-dose series) 2005 Hepatitis B Vaccines (1 of 3 - 19+ 3-dose series) 2005 Pneumococcal Vaccine: Pediat rics (0 to 5 Years) and At-Risk Patients (6 to 49 Years) (1 of 2 - PCV) 2005 Cervical Cancer Screening: P ap Smear 2007 Cholesterol Screening (Lipid Panel) 04/20/2022 Hepatitis C Screening 04/20/2022 Social Influencers of Health Screening 04/20/2022 COVID-19 Vaccine (1 - 2023-2 5 season) 2024 Depression Screening 05/22/2024 Influenza Vaccine (#1) 2025 07/04/2019 DTaP,Tdap,and Td Vaccines (2 - Td or Tdap) 10/10/2029 10/11/2019 HIV Screening Completed 09/11/2023 HIB Vaccines Aged Out No longer eligi ble based on patient's age to complete this topic HPV Vaccines Aged Out No longer eligi ble based on patient's age to complete this topic IPV Vaccines Aged Out No longer eligi ble based on patient's age to complete this topic MMR Vaccines Aged Out No longer eligi ble based on patient's age to complete this topic Meningococcal ACWY Vaccine Aged Out N o longer eligible based on patient's age to complete this topic Meningococcal B Vaccine Aged Out No l onger eligible based on patient's age to complete this topic RSV Immunization Patients Un renea 20 months Aged Out No longer eligible b ased on patient's age to complete this topic Varicella Vaccines Aged Out No longer eligible based on patient's age to complete this topic Insurance [place]ICA[place] - [place] Care Teams Association Executive Relationship Specialty Start Date End Date Physician, Pcp Unknown PCP - General 06/28/24
--- OUTSIDE RECORDS SUMMARY | 2024-12-10 09:29 | XMS_ITS | Encounter Summary ---
Author Organization [employer] Address [address] [place] [address] Care Team Providers Care Rn Forensic Name Role Phone Colt Barrera MD Primary Care Prov ider Reason for Referral * Consultation (Routine) - Closed Specialty Diagnoses / Procedures Referred By Contdavid t Referred To Contact Lab Diagnoses Chronic hepatitis C without hepatic coma (CMS/HCC) Colt Barrera MD [address] [place] [address] Phone: tel: fax: Referral ID Status Reason Start Date Expiration Date V isits Requested Visits Authorized [id number] Closed Specialty Services Required 12/04/2024 12/04/2025 1 1 Scheduling Instructions Please refer to [facility], [place] [address] Encounter Details Date Type Department Care Team ([facility] st Contact Info) Description 12/03/2024 Orders Only [facility] MED & PEDS [address] [place] [address] Colt Barrera MD [address] [place] [address] Chronic hepatitis C without hepatic coma (CMS/HCC) (Primary Dx) Social History Tobacco Use Types Packs/Day Years Used Date Smoking Tobacco: Some Days Cigarettes Passive Smoke Exposure: Current Smokeless Tobacco: Never Alcohol Use Standard Drinks/Week Comments Defer 0 (1 standard drink = 0.6 oz pur e alcohol) Depression Answer Date Recorded Patient Health Questionnaire-9 Score 18 10/25/2024 Patient Health Questionnaire-9 Score 18 10/25/2024 Last PHQ-9: Questionnaire Data Not on file 0 10/25/2024 Housing Stability Answer Date Recorded What is your housing situation today? I have henry romero 09/05/[address] you li ve. Do you have problems with any of the following? None of the above 09/05/2024 Food Insecurity Answer Date Recorded Within the past 12 months, y ou worried that your food would run out before you got money to buy more: Sometimes True 2024 Within the past 12 months,th e food you bought just didn't last and you didn't have enough money to get more: Sometimes True 09/05/2024 Transportation Answer Date Recorded In the past 12 months, has l ack of transportation kept you from medical appts, meetings, work or from getting things needed for daily living? Yes, it has kept me from medical appointments or getting medications. 09/05/2024 Intimate Partner Violence Answer Date R ecorded Within the last year, have y ou been afraid of your partner or ex-partner? 2 10/28/2024 Emotionally Abused Not on file 10/28/2024 Physically Abused Not on file 10/28/2024 Sexually Abused Not on file 10/28/2024 Utilities Answer Date Recorded In the past 12 months, has t he electric, gas, oil or water company threatened to shut off services in your home? No 09/05/2024 Depression Answer Date Recorded Patient Health Questionnaire-2 Score 2 10/25/2024 Internet Access Answer Date Recorded Internet Access Q1 Yes 09/05/2024 Internet Access Q2 Not on file 09/05/2024 Comments Unknown Sex and Gender Information Value Date Recorded Sex Assigned at Female 03/21/2022 10:34 AM EDT Legal Sex Female 10:34 AM EDT Gender Identity Female 03/21/2022 10:34 AM EDT Sexual Orientation Straight 03/21/2022 10 :34 AM EDT documented as of this encounter Plan of Treatment Scheduled Referrals Name Type Priority Associated Diagnoses Orde r Schedule Referral to [facility] Referral Routine Chronic hepatitis C without hepatic coma (CMS/HCC) Expected: 12/04/2024 (Approximate), Expires: 12/04/2025 documented as of this encounter Visit Diagnoses Diagnosis Chronic hepatitis C without hepatic coma (CMS/HCC)- Primary documented in this encounter Additional Health Concerns Assessment Noted Time PHQ-9 Depression Total Score: 18 025 10:49 AM EDT documented as of this encounter Care Teams Rn Forensic Relationship Specialty Start Date End Date Colt Barrera MD [address] [place] [address] PCP - General Internal Medicine 07/19/19 Leslye Scott Soccer CommentatorSenior Clinical Data Manager 09/01/23 documented as of this encounter
[2024-12-10 14:10] LABS: MANUAL DIFF FLAG NO
[2024-12-10 14:14] LABS: Hematocrit 38.2 % (37.0-47.0); Hemoglobin 13.6 g/dl (12.0-16.0); Imm Gran Abs Auto 0.02 X10*3/uL (0.00-0.03); Imm Gran Pct Auto 0.3 % (0.0-0.4); Lymphocytes Absolute Auto 2.0 X10*3/uL (1.2-4.9); Mean Corpuscular HGB Conc 35.6 g/dl (31.0-35.0); Mean Corpuscular Hemoglobin 32.0 pg (27.0-33.0); Mean Corpuscular Volume 89.9 fL (80.0-98.0); NRBC Abs Auto 0.000 X10*3/uL (0.0-0.012); NRBC Pct Auto 0.0 /100WBC (0.0-0.2); Platelet Count 196 X10*3/uL (160-400); Red Blood Count 4.25 X10*6/uL (4.20-5.50); White Blood Count 7.0 X10*3/uL (4.8-10.8)
[2024-12-10 14:22] LABS: INTERNATIONAL NORM RATIO 1.0 (0.9-1.1); Prothrombin Time 11.4 SEC (10.9-12.4)
[2024-12-10 14:47] LABS: Alanine Aminotransferase 67 U/L (0-31); Albumin Level 4.1 g/dL (3.5-5.0); Alkaline Phosphatase 65 U/L (39-117); Anion Gap 13 (12-20); Aspartate Amino Transferase 53 U/L (5-31); Blood Urea Nitrogen 6 mg/dL (9-16); Calcium 8.8 mg/dL (8.4-10.2); Carbon Dioxide 24 mmol/L (22-29); Chloride 106 mmol/L (96-108); Estimated Glomerular Filt Rate > 60; Potassium 3.5 mmol/L (3.3-5.1); Sodium 139 mmol/L (135-145); Total Protein 6.9 g/dL (6.5-8.0)
[2024-12-11 08:05] LABS: HIV Num 1 0.06 S/CO (0.00-0.99)
[2024-12-11 21:48] LABS: HCV Log PCR 6.03 Log IU/mL (NOT DETECTED); HepC Viral Load 1080000 IU/mL (NOT DETECTED)
[2024-12-18 11:28] LABS: FIB-ALT 50 U/L (6-29); FIB-Alpha-2-Macroglobulin 415 mg/dL (106-279); FIB-Apolipoprotein A1 161 mg/dL (101-198); FIB-GGT 43 U/L (3-50); FIB-Haptoglobin 70 mg/dL (43-212); FIB-Total Bilirubin 0.6 mg/dL (0.2-1.2); Liver Fibrosis Score 0.51; Liver Fibrosis Stage F2; Nec Inflam Act Grade A1; Nec Inflam Act Score 0.36
== END 2024-12-10 09:01 | disposition home or self-care (01) ==
LOC: HO.CHCLDS 09:00
PROVIDERS: Visit Provider Internal Medicine
DX: B18.2 Chronic viral hepatitis C (principal)
CPT/HCPCS: 36415; 80053; 81596; 85025; 85610; 87389; 87522

== ENCOUNTER 2025-03-27 17:59 | Outpatient (REF) | payer MEDICAID, SELFPAY ==
--- OUTSIDE RECORDS SUMMARY | 2025-03-24 13:00 | XMS_ITS | Encounter Summary ---
Author Organization [employer] Address [address] [place] [address] [address] [place] [address] Care Team Providers Care Heel Former Name Role Phone Colt Barrera MD Primary Care Prov ider Reason for Visit * Reason Comments HCV MD INTAKE Encounter Details Date Type Department Care Team ([facility] st Contact Info) Description 2025 1:00 PM EST Office Visit [facility] MEDICINE [address] [place] [address] Mable Sampson MD [address] [place] [address] Chronic hepatitis C without hepatic coma (HCC) (Primary Dx) Social History Tobacco Use Types Packs/Day Years Used Date Smoking Tobacco: Former Cigarettes Passive Smoke Exposure: Current Smokeless Tobacco: Never Tobacco Cessation:Counseling Given: Not Answered Alcohol Use Standard Drinks/Week Comments Defer 0 (1 standard drink = 0.6 oz pur e alcohol) Depression Answer Date Recorded Patient Health Questionnaire-9 Score 0 2025 Patient Health Questionnaire-9 Score 0 2025 Last PHQ-9: Questionnaire Data Not on file 1 05/24/2024 Housing Stability Answer Date Recorded What is [...] Answer Date Recorded Patient Health Questionnaire-2 Score 0 2025 Internet Access Answer Date Recorded Internet Access Q1 Yes 09/05/2024 Internet Access Q2 Not on file 09/05/2024 Comments Unknown Sex and Gender Information Value Date Recorded Sex Assigned at Female 03/21/2022 10:34 AM EDT Legal Sex Female 10:34 AM EDT Gender Identity Female 03/21/2022 10:34 AM EDT Sexual Orientation Straight 03/21/2022 10 :34 AM EDT documented as of this encounter Last Filed Vital Signs Vital Sign Reading Time Taken Comments Blood Pressure 121/80 2025 1:02 PM EST Pulse 105 2025 1:02 PM EST Temperature 36.6 C (97.9 F) 2025 1:02 PM EST Respiratory Rate 20 2025 1:02 PM EST Oxygen Saturation - - Inhaled Oxygen Concentration - - Weight 93 kg (205 lb) 2025 1:02 PM EST Height - - Body Mass Index 35.46 03/11/2025 1:10 PM EDT documented in this encounter Functional Status * Over the past 2 weeks, how often have you been bothered by any of the following problems? Question Answer Date of Assessment Author Patient Health Questionnaire -2 Score 0 2025 1:03 PM EST Boris Jung [place] * Little interest or pleasure in doing things Answer Date of Assessment Author Not at all 2025 1:03 PM Inés Cervantes [place] * Feeling down, depressed, or hopeless Answer Date of Assessment Author Not at all 2025 1:03 PM Inés Cervantes [place] * Trouble falling or staying asleep, or sleeping too much Answer Date of Assessment Author Not at all 2025 1:03 PM Inés Cervantes [place] * Feeling tired or having little energy Answer Date of Assessment Author Not at all 2025 1:03 PM Inés Cervantes [place] * Poor appetite or overeating Answer Date of Assessment Author Not at all 2025 1:03 PM Inés Cervantes [place] * Feeling bad about yourself - or that you are a failure or have let yourself or your family down Answer Date of Assessment Author Not at all 2025 1:03 PM Inés Cervantes [place] * Trouble concentrating on things, such as reading the newspaper or watching television Answer Date of Assessment Author Not at all 2025 1:03 PM Inés Cervantes [place] * Moving or speaking so slowly that other people could have noticed? Or the opposite - being so fidgety or restless that you have been moving around a lot more than usual. Answer Date of Assessment Author Not at all 2025 1:03 PM Inés Cervantes [place] * Thoughts that you would be better off or hurting yourself in some way Answer Date of Assessment Author Not at all 2025 1:03 PM Inés Cervantes [place] * Patient Health Questionnaire-9 Score Answer Date of Assessment Author 0 2025 1:03 PM Inés Cervantes [place] documented as of this encounter Progress Notes * Mable Sampson MD - 2025 1:00 PM EST RN spoke with pt for Hep C apparatus cleaner. Pt diagnosed: in 2011, Via IVDU. Diagnostics: HCV genotype: 1a HCV viral load: [id number] Abnormal Fibrosis score: f2 Hep A status: Immune Hep B status (core antibody, surface antibody, core antigen):immune/negative HIV ag/ab: Negative PT/INR: 11.4/1 CBC, GFR, LFTs completed:12/10/24 test: not done (tele) Previous Hep C treatment: Pt states in Fall 2022 she was rx'd Mavret but stopped on her own after feeling very tired-was rx'd at [facility] clinic Fib-4 calculation (Fibrosis-4 (FIB-4) Calculator - Clinical Calculators - Hepatitis C Online ): CTP calculation (Dvotm-Dpsbyrrk-Gbbx (CTP) Calculator - Clinical Calculators - Hepatitis C Online ): Substance use history: IVDU-Heroin,cocaine started using at age 17 y/o- last used 03/09/2019 Crack Pt sexually active-No. Has a partner but not having sex, last time was 1 year ago- partner does know pts status. Discussed safer sex with patient, pt encouraged to use condoms with partner prior to completion of treatment, condoms given today. current medications reviewed. - yes, pt only taking [facility] Hep C Intake complete, pt reports understanding of treatment plan and importance of medication adherence. Pt is motivated to begin treatment. Plan: pt to come in 02/03/25 at 1:30am, pt does state she may not make it d/t work but will call if unable to come in. Message sent to Pharmacy to do med rec. All set. Appointment with Dr. Sampson: 02/03/25 MD INTAKE-03/24/25 Subjective Patient ID: Mitzi Salguero is a 40 y.o. female who presents for HCV MD INTAKE. Mitzi is being seen to discuss treatment options for chronic viral HCV, genotype 1a, viral load [id number], fibrosis score F2. She was prescribed Mavyret in 2022 but stopped after a few weeks due to fatigue. apparatus cleaner notes and pharmacy med rec notes reviewed. Since pharmacy med rec in December, patient has restarted her psych medications and is now on Hotevilla-Bacavi, trazodone, prazosin and Concerta. Med list updated. Will ask pharmacy to update med rec. 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 She is living in [place] with her partner and 5 yo son. Her older children are on their own and were raised by her parents. She now has a good relationship with them. 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 She has held this job for a full year and is very proud of that. No alcohol/tobacco/drug use. She and partner are taking precautions until she is treated. She appears highly motivated for treatment. Review of Systems Constitutional: Negative for fatigue. Gastrointestinal: Negative for abdominal pain, nausea and vomiting. Psychiatric/Behavioral: Negative for dysphoric mood. The patient is not nervous/anxious. Objective Physical Exam Constitutional: Appearance: Normal appearance. Skin: General: Skin is warm and dry. Neurological: Mental Status: She is alert and oriented to person, place, and time. Assessment/Plan Diagnoses and all orders for this visit: Chronic hepatitis C without hepatic coma (HCC) Planned treatment and duration: Mavyret per patient preference. Potential drug interactions: Mavyret/Epclusa with Prazosin: Coadministration has not been studied. Prazosin is transported by BCRP and concentrations may increase due to inhibition of BCRP by velpatasvir. Pharmacy reviewed med rec again - no interactions identified. Counseled patient on HCV transmission, natural history, treatment options and reviewed treatment course/duration, side effects, adherence strategies/importance, laboratory monitoring, chance of cure as documented by SVR12, and reinfection risk. Questions answered and concerns addressed. documented in this encounter Plan of Treatment Upcoming Encounters Date Type Department Care Team (Late st Contact Info) Description 04/14/2025 10:00 AM EST Clinical Support [facility] DIABETES/NUTRITION [address] [place] [address] [place] [address] documented as of this encounter Visit Diagnoses Diagnosis Chronic hepatitis C without hepatic coma (HCC)- Primary documented in this encounter Additional Health Concerns Assessment Noted Time PHQ-9 Depression Total Score: 0 03/24/20 25 1:03 PM EST documented as of this encounter Care Teams Heel Former Relationship Specialty Start Date End Date Colt Barrera MD [address] [place] [id number] PCP - General Internal Medicine 07/19/19 Leslye Scott Aquaculture WorkerNurse Technician 09/01/23 documented as of this encounter
--- OUTSIDE RECORDS SUMMARY | 2025-03-27 13:00 | XMS_ITS | Encounter Summary ---
Author Organization [employer] Address [address] [place] [address] Care Team Providers Care Industrial Chemist Name Role Phone Colt Barrera MD Primary Care Prov ider Reason for Referral * Imaging (STAT) - Authorized Specialty Diagnoses / Procedures Referred By Contac t Referred To Contact Radiology Diagnoses Left flank pain Procedures CT Abdomen Pelvis w/o Contrast Magy Rios MD [address] [place] [address] Phone: tel: fax: [address] Phone: tel: fax: Referral ID Status Reason Start Date Expiration Date V isits Requested Visits Authorized [id number] Authorized 03/27/2025 03/27/2026 1 1 Reason for Visit * Reason Comments Abdominal Pain Encounter Details Date Type Department Care Team (Late st Contact Info) Description 03/27/2025 1:00 PM EST Office Visit [facility] [address] [place] [phone] Magy Rios MD [address] [place] [phone] Left flank pain (Primary Dx); Constipation, unspecified constipation type Social History Tobacco Use Types Packs/Day Years [...] Sign Reading Time Taken Comments Blood Pressure 129/84 03/27/2025 1:10 PM EST Pulse 81 03/27/2025 1:10 PM EST Temperature 36.1 C (96.9 F) 03/27/2025 1:10 PM EST Respiratory Rate - - Oxygen Saturation 97% 03/27/2025 1:10 PM EST Inhaled Oxygen Concentration - - Weight 92.3 kg (203 lb 6.4 oz) 03/27/2025 1:10 P M EST Height 162.6 cm (5' 4 ) 03/27/2025 1:10 PM EST Body Mass Index 34.91 03/27/2025 1:10 PM EST documented in this encounter Progress Notes * Magy Rios MD - 03/27/2025 1:00 PM EST Subjective Patient ID: Mitzi Salguero is a 40 y.o. female with past medical history choric llq abdominal pain, alcohol use disorder, hypertension, who presents to walk in clinic for Abdominal Pain. CT of abdomen for RUQ pain 02/22/25 in ER: KIDNEYS/URETERS: No hydronephrosis, stones, or solid mass.PELVIC ORGANS/BLADDER: 4.96 x 4.10 cm right adnexal cyst. This could be further evaluated with ultrasound if desired this cyst was present in 2020 PERITONEUM / RETROPERITONEUM: No ascites or free air. No retroperitoneal lymphadenopathy. VESSELS: Scattered atherosclerotic calcifications throughout the aorta and its major branches. No aneurysm. GI TRACT: No bowel distention or wall thickening. Normal appendix. Abdominal Pain This is a new problem. The current episode started yesterday. The onset quality is gradual. The problem occurs constantly. The problem has been unchanged. The pain is located in the LLQ and left flank. The pain is at a severity of 9/10. The pain is moderate. The quality of the pain is cramping. Theabdominal pain does not radiate. Associated symptoms include constipation. Pertinent negatives include no diarrhea, dysuria, fever, frequency, hematochezia, hematuria, nausea, vomiting or weight loss. The pain is aggravated by deep breathing and movement. She has tried nothing for the symptoms. Review of Systems Constitutional: Negative for fever and weight loss. Gastrointestinal: Positive for abdominal pain and constipation. Negative for diarrhea, hematochezia, nausea and vomiting. Genitourinary: Negative for dysuria, frequency and hematuria. Objective There were no vitals taken for this visit. There is no height or weight on file to calculate BMI. Physical Exam Constitutional: Appearance: Normal appearance. Cardiovascular: Rate and Rhythm: Normal rate and regular rhythm. Heart sounds: Normal heart sounds. Pulmonary: Effort: Pulmonary effort is normal. Breath sounds: Normal breath sounds. Abdominal: General: There is no distension. Palpations: There is no mass. Tenderness: There is abdominal tenderness. There is left CVA tenderness. There is no right CVA tenderness, guarding or rebound. Hernia: No hernia is present. Musculoskeletal: Cervical back: Normal range of motion and neck supple. Neurological: General: No focal deficit present. Mental Status: She is alert. Psychiatric: Behavior: Behavior normal. Assessment & Plan Left flank pain Constipation vs renal calculi. UA negative for blood however flank pain present. Will check CT/pelvis for stone. No indication of infection. Dulcolax for constipation. ER precautions discussed. She agrees with the plan. Orders: CT Abdomen Pelvis w/o Contrast; Future POCT Urinalysis POCT Urine ibuprofen 600 MG tablet; Take 1 tablet (600 mg) by mouth every 8 (eight) hours if needed for moderate pain or fever. Constipation, unspecified constipation type Orders: bisacodyl (Dulcolax) 5 MG EC tablet; Take 1 tablet (5 mg) by mouth if needed each day for constipation. Do not crush, chew, or split. Future Appointments Date Time Provider Department Center 04/14/2025 10:[address] [facility] This note was drafted using Ambient (AI) technology. The patient/patient's guardian has been informed and has consented to the use of this technology: yes documented in this encounter Miscellaneous Notes * Assessment & Plan Note - Magy Rios MD - 03/27/2025 1:00 PM EST Associated Problem(s): Constipation Orders: bisacodyl (Dulcolax) 5 MG EC tablet; Take 1 tablet (5 mg) by mouth if needed each day for constipation. Do not crush, chew, or split. documented in this encounter Plan of Treatment Upcoming Encounters Date Type Department Care Team (Late st Contact Info) Description 04/14/2025 10:00 AM EST Clinical Support [facility] DIABETES[facility]NUTRITION [address] [place] [address] Ol[address] Ku, RD [address] [place] [address] Scheduled Orders Name Type Priority Associated Diagnoses Orde r Schedule CT Abdomen Pelvis w/o Contrast Imaging STAT Left flank pain Expected: 03/27/2025, Expires: 03/27/2026 Urinalysis, Complete, with Reflex to Culture Lab Routine Left flank pain Expected: 03/27/2025 (Approximate), Expires: 03/27/2026 documented as of this encounter Procedures Procedure Name Priority Date/Time Associated Diagnosis Comments POCT URINALYSIS DIPSTICK Routine 03/27/2025 1:45 PM EST Left flank pain POCT , URINE Routine 03/27/2025 1:38 PM EST Left flank pain documented in this encounter Results * POCT Urinalysis (03/27/2025 1:45 PM EST) Color, UA Yellow Clarity, UA Clear Glucose, UA Negative Bilirubin, UA Trace Comment:small Ketones, UA Negative Spec Grav, UA 1.025 Blood, UA Negative Negative, None Detected pH, UA 7.0 Protein, UA Negative Urobilinogen, UA >=8.0 Leukocytes, UA Negative Negative, Rare, Trace Nitrite, UA Negative Negative, None Detected QC Media Lot # [id number] Lot# Expiration Date Urine (Urine, Random) 03/27/2025 1:45 PM EST Magy Rios MD POINT OF CARE TEST ENTER/E DIT ORDERABLES Final Result * POCT Urine (03/27/2025 1:38 PM EST) Preg Test, Ur Negative Negative, Indeterminate, None Detected, Invalid, Specimen unsatisfactory for evaluation, Weakly Positive, 2+ QC Media Lot # [id number] Lot# Expiration Date Urine 03/27/2025 1:38 PM EST Magy Rios MD POINT OF CARE TEST ENTER/E DIT ORDERABLES Edited Result - Final documented in this encounter Visit Diagnoses Diagnosis Left flank pain- Primary Abdominal pain, unspecified site Constipation, unspecified constipation type documented in this encounter Additional Health Concerns Assessment Noted Time PHQ-9 Depression Total Score: 0 03/24/20 25 1:03 PM EST documented as of this encounter Care Teams Industrial Chemist Relationship Specialty Start Date End Date Colt Barrera MD [address] [place] [id number] PCP - General Internal Medicine 07/19/19 Leslye Scott Director PayerRisk Assessor 09/01/23 documented as of this encounter
[2025-03-27 18:39] LABS: Appearance Urine Clear; Glucose Urine UA Negative (Negative); PH 7.0 (5.0-9.0); Specific Gravity - Urine 1.020 (1.005-1.025); UMIC TRIGGER UACC YES
--- OUTSIDE RECORDS SUMMARY | 2025-03-27 18:53 | XMS_ITS ---
Author Organization [employer] Address [address] [place] [address] Care Team Providers Care Recreation Facility Manager Name Role Phone Colt Barrera MD Primary Care Prov ider CM Complex Status:Enrolled (Active) Start date:08/30/2024 Enrollment date:10/25/2024 Enrollment reason:ADT Feed Overview ED- Pt went to [facility] ED on 08/29/24. Case Team Name Relationship Phone Santino Escobedo RN(Responsible Staff) Registered N [place] [phone] Continued Care and Services Coordination
--- OUTSIDE RECORDS SUMMARY | 2025-03-27 18:53 | XMS_ITS | Clinical Summary ---
Author Organization [facility] Address [address] [place] [address] Phone Care Team Providers Care Commercial Lines Underwriter Name Role Phone Physician, Pcp Unknown Primary Care Provider Jen vailable Allergies Active Allergy Reactions Criticality Noted Date Comments Aripiprazole 06/28/2024 Lamotrigine 06/28/2024 Medications cyclobenzaprine (FLEXERIL) 10 mg tablet Take 1 tablet (10 mg total) by mouth 2 (two) times a day if needed for muscle spasms for up to 10 days. 20 tablet 02/22/2025 Active Encounters Date Type Department Care Team Description 02/22/2025 9:01 AM EDT - 02/22/2025 1:09 PM EDT [facility] [address] [place] [phone] Derick Souza MD Right upper quadrant abdominal pain (Primary Dx); Acute right-sided low back pain without sciatica Discharge Disposition: Home or Self Care 01/13/2025 5:56 PM EDT - 01/13/2025 6:42 PM EDT [facility] [address] [place] [phone] Deng Banks MD Concussion without loss of consciousness, initial encounter (Primary Dx) Discharge Disposition: Home or Self Care from Last 3 Months Medical History Medical History Date Comments Depression Hepatitis-C Social History Tobacco Use Types Packs/Day Years [...] Sign Reading Time Taken Comments Blood Pressure 132/84 02/22/2025 1:08 PM EDT Pulse 65 02/22/2025 1:08 PM EDT Temperature 36.6 C (97.9 F) 02/22/2025 1:08 PM EDT Respiratory Rate 16 02/22/2025 1:08 PM EDT Oxygen Saturation 100% 02/22/2025 1:08 PM EDT Inhaled Oxygen Concentration - - Weight 92.4 kg (203 lb 12.8 oz) 02/22/2025 8:48 AM EDT Height 162.6 cm (5' 4 ) 02/22/2025 8:48 AM EDT Body Mass Index 34.98 02/22/2025 8:48 AM EDT Plan of Treatment Health Maintenance Due Date Last Done Comments Hepatitis A Vaccines (1 of 2 - Risk 2-dose series) 2005 Hepatitis B Vaccines (1 of 3 - 19+ 3-dose series) 2005 Pneumococcal Vaccine: Pediatrics (0 to 5 Years) and At-Risk Patients (6 to 49 Years) (1 of 2 - PCV) 2005 Cervical Cancer Screening: P ap Smear 2007 HPV Vaccines (1 - 3-dose SCD M series) 2013 Cholesterol Screening (Lipid Panel) 04/20/2022 Hepatitis C Screening 04/20/2022 Social Influencers of Health Screening 04/20/2022 Depression Screening 05/22/2024 COVID-19 Vaccine (1 - 2023-2 5 season) 2025 Influenza Vaccine (#1) 2025 07/04/2019 Hypertension/CHF/CAD Annual BMP Blood Test 02/22/2026 02/22/2025, 12/10/2024, 06/28/2024 DTaP,Tdap,and Td Vaccines (2 - Td or Tdap) 10/10/2029 10/11/2019 RSV Immunization Adult Patients (1 - 1-dose 75+ series) 2061 HIV Screening Completed 12/10/2024, 09/11/2023 HIB Vaccines Aged Out No longer [...] to complete this topic RSV Immunization Patients Under 20 months Aged Out No longer eligible b ased on patient's age to complete this topic Varicella Vaccines Aged Out No longer eligible based on patient's age to complete this topic Procedures Procedure Name Priority Date/Time Associated Diagnosis Comments CBC WITH AUTO DIFFERENTIAL STAT 02/22/2025 10:34 AM EDT CBC AND DIFFERENTIAL STAT 02/22/2025 10:[address] ABDOMEN PELVIS WO CONTRAST STAT 02/22/2025 10:01 AM EDT URINALYSIS WITH REFLEX MICROSCOPIC STAT 02/22/2025 9:42 AM EDT URINALYSIS WITH REFLEX MICROSCOPIC STAT 02/22/2025 9:42 AM EDT LT GREEN - LI HEPARIN Routine 02/22/2025 9:39 AM EDT EXTRA TUBES Routine 02/22/2025 9:39 AM EDT LIPASE STAT 02/22/2025 9:39 AM EDT COMPREHENSIVE METABOLIC PANEL STAT 02/22/2025 9:39 AM EDT POC , URINE DIAGNOSTIC STAT 02/22/2025 9:10 AM EDT ECG ANNOTATED 01/14/2025 ECG 12-LEAD STAT 01/13/2025 5:24 PM EDT from Last 3 Months Results * (ABNORMAL) CBC auto differential (02/22/2025 10:34 AM EDT) [facility] Signature WBC 6.6 4.8 - 10.8 K/mcL LAB HEMETOLOGY METHOD 02/22/2025 10:48 AM [facility] RBC 4.30 3.80 - 4.80 M/mcL LAB HEMETOLOGY METHOD [facility] Hemoglobin 13.3 11.5 - 16.0 g/dL LAB HEMETOLOGY METHOD 02/22/2025 10:48 AM [facility] Hematocrit 38.8 35.0 - 47.0 % LAB HEMETOLOGY METHOD 02/22/2025 10:48 AM [facility] MCV 89.6 79.0 - 98.0 FL LAB HEMETOLOGY METHOD 02/22/2025 10:48 AM [facility] MCH 30.7 27.0 - 32.0 pcg LAB HEMETOLOGY METHOD 02/22/2025 10:48 AM [facility] MCHC 34.3 32.0 - 37.0 g/dL LAB HEMETOLOGY METHOD 02/22/2025 10:48 AM [facility] RDW 13.0 11.0 - 15.0 % LAB HEMETOLOGY METHOD 02/22/2025 10:48 AM [facility] Platelets 211 130 - 400 K/mcL LAB HEMETOLOGY METHOD 02/22/2025 10:48 AM [facility] MPV 11.4(H) 7.0 - 11.0 FL LAB HEMETOLOGY METHOD 02/22/2025 10:48 AM [facility] NRBC 0.0 <1.0 % LAB HEMETOLOGY METHOD 02/22/2025 10:48 AM [facility] NRBC Absolute 0.00 <0.10 K/mcL LAB HEMETOLOGY METHOD 02/22/2025 10:48 AM EDT [facility] Neutrophils Relative 51.4 % LAB HEMETOLOGY METHOD 02/22/2025 10:48 [facility] Lymphocytes Relative 35.7 % LAB HEMETOLOGY METHOD 02/22/2025 10:48 AM EDT [facility] Monocytes Relative 8.3 % LAB HEMETOLOGY METHOD 02/22/2025 10:48 AM EDT [facility] Eosinophils Relative 3.6 % LAB HEMETOLOGY METHOD 02/22/2025 10:48 AM EDT [facility] Basophils Relative 0.8 % LAB HEMETOLOGY METHOD 02/22/2025 10:48 [facility] Immature Granulocytes Relative 0.2 % LAB HEMETOLOGY METHOD 02/22/2025 10:48 AM EDT [facility] Neutrophils Absolute 3.40 1.50 - 7.00 K/mcL LAB HEMETOLOGY METHOD 02/22/2025 10:48 AM EDT [facility] Lymphocytes Absolute 2.36 1.00 - 5.00 K/mcL LAB HEMETOLOGY METHOD 02/22/2025 10:48 [facility] Monocytes Absolute 0.55 0.20 - 1.00 K/mcL LAB HEMETOLOGY METHOD 02/22/2025 10:48 AM EDT [facility] Eosinophils Absolute 0.24 0.00 - 0.50 K/mcL LAB HEMETOLOGY METHOD 02/22/2025 10:48 AM EDT [facility] Basophils Absolute 0.05 0.00 - 0.20 K/mcL LAB HEMETOLOGY METHOD 02/22/2025 10:48 [facility] Immature Granulocytes Absolute 0.01 0.00 - 0.03 K/mcL LAB HEMETOLOGY METHOD 02/22/2025 10:48 AM EDT [facility] Blood Venous blood specimen / Unknown Venipuncture / Unknown 02/22/2025 10:34 AM EDT 02/22/2025 10:43 AM EDT us Derick Souza MD LAB BLOOD ORDERABLES Diane l Result [facility] [address] [place] [address], [place] [phone] * CT Abdomen Pelvis wo Contrast (02/22/2025 10:01 AM EDT) Anatomical Region Laterality Modality Body Computed Tomogra phy 02/22/2025 10:2 0 AM EDT Impressions 02/22/2025 10:27 AM EDT NO ACUTE ABNORMALITY. -------- FINAL REPORT -------- Dictated By: Cordelia Samano Dictated Date: 02/22/2025 10:20 ET Assigned Physician: Cordelia Samano Reviewed and Electronically Signed By: Cordelia Samano Signed Date: 02/22/2025 10:27 ET Workstation ID: [id number] Transcribed By: Self Edit Transcribed Date: 02/22/2025 10:20 ET Narrative 02/22/2025 10:27 AM EDT PROCEDURE: CT Abdomen and Pelvis without contrast INDICATION: R flank pain ?stone TECHNIQUE: CT of the abdomen and pelvis without contrast. Multiplanar reformats. The examination was performed utilizing dose reduction techniques. DLP: 1206 mGy/cm COMPARISON: 11/30/2020 FINDINGS: LOWER THORAX: Lung bases are clear. HEPATOBILIARY: No focal liver lesions. No cholelithiasis or biliary duct dilatation. SPLEEN: No splenomegaly. PANCREAS: No focal mass or ductal dilatation. ADRENALS: No nodules. KIDNEYS/URETERS: No hydronephrosis, stones, or solid mass. PELVIC ORGANS/BLADDER: 4.96 x 4.10 cm right adnexal cyst. This could be further evaluated with ultrasound if desired this cyst was present in 2020 PERITONEUM / RETROPERITONEUM: No ascites or free air. No retroperitoneal lymphadenopathy. VESSELS: Scattered atherosclerotic calcifications throughout the aorta and its major branches. No aneurysm. GI TRACT: No bowel distention or wall thickening. Normal appendix. BONES AND SOFT TISSUES: Scattered degenerative changes seen throughout the bones. Soft tissues are unremarkable. Procedure Note Cordelia Samano MD - 02/22/2025 PROCEDURE: CT Abdomen and Pelvis without contrast INDICATION: R flank pain ?stone TECHNIQUE: CT of the abdomen and pelvis without contrast. Multiplanarreformats. The examination was performed utilizing dose reductiontechniques. DLP: 1206 mGy/cm COMPARISON: 11/30/2020 FINDINGS: LOWER THORAX: Lung bases are clear. HEPATOBILIARY: No focal liver lesions. No cholelithiasis or biliary ductdilatation. SPLEEN: No splenomegaly. PANCREAS: No focal mass or ductal dilatation. ADRENALS: No nodules. KIDNEYS/URETERS: No hydronephrosis, stones, or solid mass. PELVIC ORGANS/BLADDER: 4.96 x 4.10 cm right adnexal cyst. This could befurther evaluated with ultrasound if desired this cyst was present [id number] PERITONEUM / RETROPERITONEUM: No ascites or free air. No retroperitoneallymphadenopathy. VESSELS: Scattered atherosclerotic calcifications throughout the aorta andits major branches. No aneurysm. GI TRACT: No bowel distention or wall thickening. Normal appendix. BONES AND SOFT TISSUES: Scattered degenerative changes seen throughout thebones. Soft tissues are unremarkable. IMPRESSION: NO ACUTE ABNORMALITY. -------- FINAL REPORT -------- Dictated By: Cordelia Samano Dictated Date: 02/22/2025 10:20 ET Assigned Physician: Cordelia Samano Reviewed and Electronically Signed By: Cordelia Samano Signed Date: 02/22/2025 10:27 ET Workstation ID: [id number] Transcribed By: Self Edit Transcribed Date: 02/22/2025 10:20 ET Derick Souza MD [facility] [place]EDURES Final R esult * (ABNORMAL) Urinalysis with reflex microscopic (02/22/2025 9:42 AM EDT) Specific [place] Urine 1.033(H) 1.003 - 1.030 LAB URINALYSIS - AUTOMATED METHOD 02/22/2025 9:59 AM [facility] pH, Urine 6.0 5.0 - 8.0 pH LAB URINALYSIS - AUTOMATED METHOD 02/22/2025 9:59 AM [facility] Leukocytes, Urine Negative Negative LAB URINALYSIS - AUTOMATED METHOD 02/22/2025 9:59 AM [facility] Nitrite, Urine Negative Negative LAB URINALYSIS - AUTOMATED METHOD 02/22/2025 9:59 AM [facility] Protein, Urine Trace <=Trace mg/dL LAB URINALYSIS - AUTOMATED METHOD 02/22/2025 9:59 AM [facility] Glucose, Urine Negative Negative mg/dL LAB URINALYSIS - AUTOMATED METHOD 02/22/2025 9:59 AM [facility] Ketones, Urine Trace(A) Negative mg/dL LAB URINALYSIS - AUTOMATED METHOD 02/22/2025 9:59 AM [facility] Urobilinogen, Urine 1.0 0.2 - 1.0 mg/dL LAB URINALYSIS - AUTOMATED METHOD 02/22/2025 9:59 AM [facility] Bilirubin, Urine Negative Negative LAB URINALYSIS - AUTOMATED METHOD 02/22/2025 9:59 AM [facility] Blood, Urine Negative Negative LAB URINALYSIS - AUTOMATED METHOD 02/22/2025 9:59 AM [facility] Urine Urine specimen obtained by clean catch procedure / Unknown Non-blood Collection / Unknown 02/22/2025 9:42 AM EDT 02/22/2025 9:49 AM EDT us Derick Souza MD LAB URINE ORDERABLES Diane l Result [facility] [address] [place] [address], * Green LI heparin tube (02/22/2025 9:39 AM EDT) [facility] Extra Tube Hold for add-ons. 02/22/2025 1:01 PM EDT [facility] Comment:Auto resulted. Blood Venous blood specimen / Unknown 02/22/2025 9:39 AM EDT 02/22/2025 11:17 AM EDT Derick Souza MD LAB BLOOD ORDERABLES Diane l Result Performing Organization Address [facility]/ZIP Co de Phone Number [facility] [address] [place] [address], [place] [phone] * Lipase (02/22/2025 9:39 AM EDT) [facility] Lipase 17 13 - 75 unit/L LAB CHEMISTRY METHOD 02/22/2025 10:39 AM EDT [facility] Blood Venous blood specimen / Unknown Venipuncture / Unknown 02/22/2025 9:39 AM EDT 02/22/2025 9:50 AM EDT Derick Souza MD LAB BLOOD ORDERABLES Diane l Result Performing Organization Address [facility]/ZIP Co de Phone Number [facility] [address] [place] [address], [place] [phone] * (ABNORMAL) Comprehensive metabolic panel (02/22/2025 9:39 AM EDT) [facility] Sodium 138 133 - 145 mmol/L LAB CHEMISTRY METHOD 02/22/2025 10:39 AM EDT [facility] Potassium 4.5 3.5 - 5.5 mmol/L LAB CHEMISTRY METHOD 02/22/2025 10:39 AM EDT [facility] Comment:Hemolysis present Chloride 105 96 - 110 mmol/L LAB CHEMISTRY METHOD 02/22/2025 10:39 AM EDT [facility] CO2 26 21 - 32 mmol/L LAB CHEMISTRY METHOD 02/22/2025 10:39 AM [facility] Anion Gap 7 3 - 11 LAB CHEMISTRY METHOD 02/22/2025 10:39 AM [facility] Glucose 73 70 - 100 mg/dL LAB CHEMISTRY METHOD 02/22/2025 10:39 AM [facility] BUN 7 5 - 25 mg/dL LAB CHEMISTRY METHOD 02/22/2025 10:39 AM [facility] Creatinine 0.42(L) 0.50 - 1.10 mg/dL LAB CHEMISTRY METHOD 02/22/2025 10:39 AM [facility] eGFR 129 >=60 mL/min/1. 73m2 LAB CHEMISTRY METHOD 02/22/2025 10:39 AM [facility] Comment:Calculation based on the Chronic Kidney Disease Epidemiology Collaboration (CKD-EPI) equation refit without adjustment for race. BUN/Creatinine Ratio 16.7 LAB CHEMISTRY METHOD 02/22/2025 10:39 AM [facility] Calcium 9.3 8.5 - 10.5 mg/dL LAB CHEMISTRY METHOD 02/22/2025 10:39 AM [facility] AST (SGOT) 64(H) 10 - 42 unit/L LAB CHEMISTRY METHOD 02/22/2025 10:39 AM [facility] Comment:Hemolysis present ALT (SGPT) 53 10 - 60 unit/L LAB CHEMISTRY METHOD 02/22/2025 10:39 AM [facility] Alkaline Phosphatase 68 42 - 121 unit/L LAB CHEMISTRY METHOD 02/22/2025 10:39 AM [facility] Total Protein 6.9 6.0 - 8.0 g/dL LAB CHEMISTRY METHOD 02/22/2025 10:39 AM [facility] Albumin 3.5 3.2 - 5.0 g/dL LAB CHEMISTRY METHOD 02/22/2025 10:39 AM EDT [facility] Total Bilirubin 0.6 0.0 - 1.4 mg/dL LAB CHEMISTRY METHOD 02/22/2025 10:39 AM EDT [facility] Blood Venous blood specimen / Unknown Venipuncture / Unknown 02/22/2025 9:39 AM EDT 02/22/2025 9:50 AM EDT Derick Souza MD LAB BLOOD ORDERABLES Diane l Result [facility] [address] [place] [address], * POC , urine manually resulted (02/22/2025 9:10 AM EDT) HCG, Ur POC Negative Negative POC hCG Int QC Pass? Yes Yes EXPIRATION DATE POC 2026-07-30 LOT NUMBER POC [id number] Urine Urine specimen obtained by clean catch procedure / Unknown 02/22/2025 9:10 AM EDT Derick Souza MD POINT OF CARE TEST ENTER/ EDIT ORDERABLES Final Result * ECG-Annotated (01/14/2025) Provider Onbase ECG ORDERABLES Final Result * ECG 12 lead (01/13/2025 5:24 PM EDT) Ventricular Rate ECG 76 BPM GEMUSE Atrial Rate 76 BPM GEMUSE P-R Interval 174 ms GEMUSE QRS Duration 76 ms GEMUSE Q-T Interval 428 ms GEMUSE QTc 481 ms GEMUSE P Wave [place] 55 degrees GEMUSE R [place] 53 degrees GEMUSE T [place] 48 degrees GEMUSE ECG Interpretation Normal sinus rhythm Statement not found (#[id number]) Abnormal ECG When compared with ECG of 28-JUN-2024 14:46, No significant change was found Confirmed by ARACELI GUTIÉRREZ ([id number]) on 01/14/2025 8:15:32 AM GEMUSE 01/13/2025 5:24 PM EDT 01/14/2025 8:15 AM EDT us Deng Banks MD ECG ORDERABLES Final Result GEMUSE from Last 3 Months Insurance MEDICAID - [place] Care Teams Commercial Lines Underwriter Relationship Specialty Start Date End Date Physician, Pcp Unknown PCP - General 06/28/24
--- OUTSIDE RECORDS SUMMARY | 2025-03-27 18:53 | XMS_ITS | Encounter Summary ---
Author Organization [employer] Address [address] [place] [address] Care Team Providers Care Veterinary Milk Specialist Name Role Phone Colt Barrera MD Primary Care Prov ider Reason for Visit * Reason Onset Date Comments Referral 10/18/2024 Encounter Details Date Type Department Care Team ([facility] Contact Info) Description 10/18/2024 Telephone [facility] CHC MED & PEDS [address] [place], [place] [phone] Colt Barrera MD [address] [place] [address] Referral Social History Tobacco Use Types Packs/Day Years Used Date Smoking Tobacco: Some Days Cigarettes Passive Smoke Exposure: Current Smokeless Tobacco: Never Alcohol Use Standard Drinks/Week Comments Defer 0 (1 standard drink = 0.6 oz pur e alcohol) Depression Answer Date Recorded Patient Health Questionnaire-9 Score 0 08/30/2023 Patient Health Questionnaire-9 Score 0 08/30/2023 Last PHQ-9: Questionnaire Data Not on file 0 08/30/2023 Housing Stability Answer Date Recorded What is [...] from medical appointments or getting medications. 09/05/2024 Utilities Answer Date Recorded In the past 12 months, has t he electric, gas, oil or water company threatened to shut off services in your home? No 09/05/2024 Depression Answer Date Recorded Patient Health Questionnaire-2 Score 0 08/30/2023 Internet Access Answer Date Recorded Internet Access Q1 Yes 09/05/2024 Internet Access Q2 Not on file 09/05/2024 Comments Unknown Sex and Gender Information Value Date Recorded Sex Assigned at Female 03/21/2022 10:34 AM EDT Legal Sex Female 10:34 AM EDT Gender Identity Female 03/21/2022 10:34 AM EDT Sexual Orientation Straight 03/21/2022 10 :34 AM EDT documented as of this encounter Miscellaneous Notes * Telephone Encounter - Austin Quezada - 10/18/2024 10:30 AM EDT TC from [facility] at [facility] requesting a referral [place] Hep[place] [address] . Any questions contact Chey at [phone] documented in this encounter Plan of Treatment Upcoming Encounters Date Type Department Care Team (Late st Contact Info) Description 04/14/2025 10:00 AM EST Clinical Support [facility] DIABETES/NUTRITION [address] [place] [address] [place] [address] documented as of this encounter Visit Diagnoses Not on filedocumented in this encounter Additional Health Concerns Assessment Noted Time PHQ-9 Depression Total Score: 0 08/30/19 10:49 AM EDT documented as of this encounter Care Teams Veterinary Milk Specialist Relationship Specialty Start Date End Date Colt Barrera MD [address] [place], [place] [address] [address] PCP - General Internal Medicine 07/19/19 Leslye Scott Collar TurnerFurnace Combustion Tester 09/01/23 documented as of this encounter
--- OUTSIDE RECORDS SUMMARY | 2025-03-27 18:53 | XMS_ITS | Encounter Summary ---
Author Organization [employer] Address [address] [place] [address] Care Team Providers Care Interior Surface Insulation Worker Name Role Phone Colt Barrera MD Primary Care Prov ider Reason for Referral * Consultation (Routine) - Closed Specialty Diagnoses / Procedures Referred By Contdavid t Referred To Contact Lab Diagnoses Chronic hepatitis C without hepatic coma (HCC) Colt Barrera MD [address] [place] [address] Phone: tel: fax: Referral ID Status Reason Start Date Expiration Date V isits Requested Visits Authorized [id number] Closed Specialty Services Required 12/04/2024 12/04/2025 1 1 Scheduling Instructions Please refer to [facility] [address] [facility], [place] [address] Encounter Details Date Type Department Care Team ([facility] st Contact Info) Description 12/03/[address] [facility] CHC MED & PEDS [address] [place] [address] Colt Barrera MD [address] [place], [place] [phone] Chronic hepatitis C without hepatic coma (CMS/HCC) [...] as of this encounter Plan of Treatment Upcoming Encounters Date Type Department Care Team (Late st Contact Info) Description 04/14/2025 10:00 AM EST Clinical Support [facility] DIABETES/NUTRITION [address] [place] [address] Olinda Ku, RD [address] [place] [address] Scheduled Referrals Name Type Priority Associated Diagnoses [...] documented as of this encounter Care Teams Interior Surface Insulation Worker Relationship Specialty Start Date End Date Colt Barrera MD [address] [place] [address] PCP - General Internal Medicine 07/19/19 Leslye Scott Retail Account SpecialistForensic Chemist 09/01/23 documented as of this encounter
--- OUTSIDE RECORDS SUMMARY | 2025-03-27 18:53 | XMS_ITS | Encounter Summary ---
Author Organization [employer] Address [address] [place] [address] 7 [place] [address] Care Team Providers Care Production Artist Name Role Phone Colt Barrera MD Primary Care Prov ider Encounter Details Date Type Department Care Team ([facility] st Contact Info) Description [address] [facility] MEDICINE [address] [place] [address] Mable Lafleur MD [address] [place] [address] Social History Tobacco Use Types Packs/Day Years [...] the past 12 months, has t he [employer], gas, oil or water company threatened to [...] AM EDT documented as of this encounter Functional Status * Over the past 2 weeks, how often have you been bothered by any of the following problems? Question Answer Date of Assessment Author Patient Health Questionnaire -2 Score 0 2025 1:03 PM Boris Cervantes MA * Little interest or pleasure in [...] Cervantes [place] documented as of this encounter Miscellaneous Notes * Telephone Encounter - Mable Lafleur MD - 2025 4:21 PM EST Thank you! * Telephone Encounter - Geovany Lerma PharmD - 2025 4:14 PM EST Provider request to recheck possible interactions with HCV therapies today (full workup last completed 12/2024). Based on fill history and recent notes, cyclobenzaprine is the only new active prescription and there is no interaction expected with potential HCV therapy. Prazosin remains a possible clinically significant interaction, but dose adjustment is not necessary upon initiation. Patient should be monitored for adverse effects such as dizziness, drowsiness, headache, palpitations. Feel free to contact pharmacist at ext [phone] with any other questions or concerns. documented in this encounter Plan of Treatment Upcoming Encounters Date Type Department Care Team (Late st Contact Info) Description 04/14/2025 10:00 AM EST Clinical Support [facility] DIABETES/NUTRITION [address] [place] [address] [place] [address] documented as of this encounter Visit Diagnoses Not on filedocumented in this encounter Additional Health Concerns Assessment Noted Time PHQ-9 Depression Total Score: 0 03/24/20 25 1:03 PM EST documented as of this encounter Care Teams Production Artist Relationship Specialty Start Date End Date Colt Barrera MD [address] [place] [address] PCP - General Internal Medicine 07/19/19 Leslye Scott Rn DigestiveChair Trimmer 09/01/23 documented as of this encounter
--- OUTSIDE RECORDS SUMMARY | 2025-03-27 18:53 | XMS_ITS ---
Author Organization [employer] Address [address] [place] [address] Care Team Providers Care Fabric Sourcer Name Role Phone Colt Barrera MD Primary Care Prov ider CHW Complex Status:Enrolled (Active) Start date:08/30/2024 Enrollment date:09/05/2024 Enrollment reason:ADT Feed Overview ED- Pt went to [facility] ED on 08/29/24. Case Team Name Relationship Phone Christel Oliveros(Responsible Staff) Continued Care and Services Coordination
--- OUTSIDE RECORDS SUMMARY | 2025-03-27 18:53 | XMS_ITS | Encounter Summary ---
Author Organization [employer] Address [address] [address] Care Team Providers Care Tip Puncher Name Role Phone Colt Barrera MD Primary Care Prov ider Reason for Visit * Reason Onset Date Comments Nurse Triage 03/27/2025 Encounter Details Date Type Department Care Team ([facility] st Contact Info) Description 03/27/2025 Telephone [facility] MEDICINE [address] [place] [address] Colt Barrera MD [address] [place] [address] Nurse Triage Social History Tobacco Use Types Packs/Day Years [...] encounter Miscellaneous Notes * Telephone Encounter - Marilu Estevez RN - 03/27/2025 8:58 AM EST TC returned to pt who reports abdominal pain. Patient reports that last evening around 5 pm she began to have some mild left side discomfort during the night the pain has become worse. Patient statesthat she is on Methadone and that she suffers from constipation r/t medication she reports last bowel movement was yesterday however small amounts, sowmya. She states that the pain is worse when shebends over however does not wish to go to the ED would rather be assessed at [facility] first. Patient denies any fevers and states wasn't a sudden pain gradual. Patient pre-booked for transportation. Protocol Used: Abdominal Pain - Female (Adult) Protocol-Based Disposition: See in Office or Video Visit Today Video visit offer not recorded Positive Triage Questions: * Moderate pain (e.g., interferes with normal activities that comes and goes (cramps) lasts > 24hours (Exception: Pain with diarrhea or vomiting; see Diarrhea or Vomiting Protocol.) * Patient wants to be seen * All higher-acuity triage questions were negative Care Advice Discussed: * Drink Clear Fluids * Pass a Stool * Reasons To Call Back - You become worse * Telephone Encounter - Elyse Oliveros - 03/27/2025 8:26 AM EST Symptom: Abdominal Pain - Female - Not Outcome: Talk to a nurse or provider within 15 minutes Reason: Severe pain now The caller accepted this outcome. Contact pt at [phone] documented in this encounter Plan of Treatment Upcoming Encounters Date Type Department Care Team (Late st Contact Info) Description 04/14/2025 10:00 AM EST Clinical Support [facility] DIABETES/NUTRITION [address] [place] [address] [place] [address] documented as of this encounter Visit Diagnoses Not on filedocumented in this encounter Additional Health Concerns Assessment Noted Time PHQ-9 Depression Total Score: 0 03/24/20 25 1:03 PM EST documented as of this encounter Care Teams Tip Puncher Relationship Specialty Start Date End Date Colt Barrera MD [address] [place] [phone] PCP - General Internal Medicine 07/19/19 Leslye Scott Governor AssemblerSandblasting Supervisor 09/01/23 documented as of this encounter
--- OUTSIDE RECORDS SUMMARY | 2025-03-27 18:53 | XMS_ITS | Encounter Summary ---
Author Organization [employer] Address [address] [place] [address] Care Team Providers Care Steeping Press Operator Name Role Phone Colt Barrera MD Primary Care Prov ider Encounter Details Date Type Department Care Team (Latest Contact Info) Description 12/19/2018 Abstract [facility] CONVERSIONS Dental, Provider, DDS Social History Tobacco Use Types Packs/Day Years Used Date Smoking Tobacco: Never Assessed Comments Unknown Sex and Gender Information Value Date Recorded Sex Assigned at Female 03/21/2022 10:34 AM EDT Legal Sex Female 10:34 AM EDT Gender Identity Female 03/21/2022 10:34 AM EDT Sexual Orientation Straight 03/21/2022 10 :34 AM EDT documented as of this encounter Plan of Treatment Upcoming Encounters Date Type Department Care Team ( st Contact Info) Description 04/14/2025 10:00 AM EST Clinical Support [facility] DIABETES/NUTRITION [address] [place] [address] [place] [address] documented as of this encounter Visit Diagnoses Not on filedocumented in this encounter Care Teams Steeping Press Operator Relationship Specialty Start Date End Date Colt Barrera MD [address] [place] [address] PCP - General Internal Medicine 07/19/19 Leslye Scott Night StockerInterface Engineer 09/01/23 documented as of this encounter
--- OUTSIDE RECORDS SUMMARY | 2025-03-27 18:53 | XMS_ITS | Encounter Summary ---
Author Organization [employer] Address [address] [place] [address] Care Team Providers Care Stitcher Tape Controlled Machine Name Role Phone Colt Barrera MD Primary Care Prov ider Reason for Visit * Reason Onset Date Comments RV APPT 03/27/2025 Encounter Details Date Type Department Care Team ([facility] Contact Info) Description 03/27/2025 Telephone [facility] CHC MED & PEDS [address] [place] [address] Colt Barrera MD [address] [place] [address] RV APPT Social History Tobacco Use Types Packs/Day Years [...] encounter Miscellaneous Notes * Telephone Encounter - Ludy Rowan MA - 03/27/2025 3:16 PM EST Called pt to schedule appt with Dr. Capone. Pt didn't answer, lvm to call office back. documented in this encounter Plan of Treatment Upcoming Encounters Date Type Department Care Team (Late st Contact Info) Description 04/14/2025 10:00 AM EST Clinical Support [facility] DIABETES/NUTRITION [address] [place], [place] [phone] Olinda Ku [address] [place] [address] documented as of this encounter Visit Diagnoses Not on filedocumented in this encounter Additional Health Concerns Assessment Noted Time PHQ-9 Depression Total Score: 0 03/24/20 25 1:03 PM EST documented as of this encounter Care Teams Stitcher Tape Controlled Machine Relationship Specialty Start Date End Date Colt Barrera MD [address] [place] [address] PCP - General Internal Medicine 07/19/19 Leslye Scott Hot Wire Glass Tube CutterWarp Spooler 09/01/23 documented as of this encounter
--- OUTSIDE RECORDS SUMMARY | 2025-03-27 18:53 | XMS_ITS | Encounter Summary ---
Author Organization [employer] Address [address] [place] [address] 7 [place] [address] Care Team Providers Care Marketing Automation Analyst Name Role Phone Colt Barrera MD Primary Care Prov ider Encounter Details Date Type Department Care Team (Late st Contact Info) Description 03/27/2025 Orders Only [facility] MEDICINE [address] [place], [place] [phone] Magy Rios MD [address] [place] [address] Social History Tobacco Use Types Packs/Day Years [...] Description 04/14/2025 10:00 AM EST Clinical Support [facility] DIABETES/NUTRITION [address] [place] [address] [place] [address] Pending Results Name Type Priority Associated Diagnoses Date /Time Urinalysis, Complete, with Reflex to Culture Lab Routine 03/27/2025 1:5 5 PM EST documented as of this encounter Procedures Procedure Name Priority Date/Time Associated Diagnosis Comments URINALYSIS, COMPLETE, WITH REFLEX TO CULTURE Routine 03/27/2025 1:55 PM EST documented in this encounter Visit Diagnoses Not on filedocumented in this encounter Additional Health Concerns Assessment Noted Time PHQ-9 Depression Total Score: 0 03/24/20 25 1:03 PM EST documented as of this encounter Care Teams Marketing Automation Analyst Relationship Specialty Start Date End Date Colt Barrera MD [address] [place] [address] PCP - General Internal Medicine 07/19/19 Leslye Scott Lace FinisherTeletype Technician 09/01/23 documented as of this encounter
--- OUTSIDE RECORDS SUMMARY | 2025-03-27 18:53 | XMS_ITS | Encounter Summary ---
Author Organization [employer] Address [address] [facility] [address]t [place] [address] Care Team Providers Care Preventive Medicine Physician Name Role Phone Colt Barrera MD Primary Care Prov ider Encounter Details Date Type Department Care Team (Latest Contact Info) Description 2025 Travel Social History Tobacco Use Types Packs/Day Years [...] is your housing situation today? I have henrynicolle romero 09/05/[address] you [...] Cervantes [place] documented as of this encounter Plan of Treatment Upcoming Encounters Date Type Department Care Team (Late st Contact Info) Description 04/14/2025 10:00 AM EST Clinical Support [facility] DIABETES/NUTRITION [address] [place] [address] [place] [address] documented as of this encounter Visit Diagnoses Not on filedocumented in this encounter Additional Health Concerns Assessment Noted Time PHQ-9 Depression Total Score: 0 03/24/20 25 1:03 PM EST documented as of this encounter Care Teams Preventive Medicine Physician Relationship Specialty Start Date End Date Colt Barrera MD [address] [place] [address] PCP - General Internal Medicine 07/19/19 Leslye Scott Tactical DebrieferAssistant Teaching Professor 09/01/23 documented as of this encounter
--- OUTSIDE RECORDS SUMMARY | 2025-03-27 18:53 | XMS_ITS | Clinical Summary ---
Author Organization [employer] Address [address] [place] [address] 7 [place] [address] Care Team Providers Care Sheet Rocker Name Role Phone Colt Barrera MD Primary Care Prov ider Allergies Active Allergy Reactions Criticality Noted Date Comments Aripiprazole 08/24/2018 Fish Allergy Rash Low 04/26/2023 Fish Protein-Containing Drug Products 08/24/2018 Lamotrigine 07/03/2018 Medications * This document contains information received from the source organization and may not represent a complete record from that organization. docusate sodium (Colace) 100 MG capsule take 1 capsule by oral route every day at bedtime as needed 90 capsule 12/01/19 24 Active Additional Information Patient not taking.Reported on 10/25/2024 ibuprofen 600 MG tabletIndicatio ns:Acute midline low back pain without sciatica Take 1 tablet by mouth with food every 8 hours for 7 days. Then take 1 tablet by mouth every 8 hours as needed for moderate-sever e back pain. 60 tablet 12/01/19 24 Active losartan (Cozaar) 50 MG tablet Take 1 tablet (50 mg) by mouth Once per day. 30 tablet 11 12/05/19 25 026 Active Misc. Devices (Pulse Oximeter) miscIndications :COVID-19 To use every 4 hours. 1 each 01/31/20 25 Active methadone (Dolophine) 10 MG/5ML solution Take 125 mg by mouth Once per day. 01/03/20 25 Active Concerta 36 MG CR tablet Take 36 mg by mouth in the morning. 03/21/20 25 Active lithium 300 MG capsule Take 600 mg by mouth Once per day. 10/29/20 25 Active prazosin (Minipress) 5 MG capsule Take 5 mg by mouth at bedtime. 03/19/20 Active traZODone (Desyrel) 50 MG tablet Take 1 tablet by mouth Once per day. 03/19/20 Active cyclobenzaprine (Flexeril) 10 MG tablet Take 10 mg by mouth if needed in the morning and at bedtime. 02/23/20 Active Glecaprevir-Pib rentasvir (Mavyret) 100-40 MG tablet Take 3 tablets by mouth Once per day. 84 tablet 1 03/24/20 Active ibuprofen 600 MG tabletIndicatio ns:Left flank pain Take 1 tablet (600 mg) by mouth every 8 (eight) hours if needed for moderate pain or fever. 30 tablet 03/27/20 25 Active bisacodyl (Dulcolax) 5 MG EC tabletIndicatio ns:Constipation , unspecified constipation type Take 1 tablet (5 mg) by mouth if needed each day for constipation. Do not crush, chew, or split. 30 tablet 03/27/20 25 Active Nirmatrelvir&Ri tonavir 300/100 (Paxlovid, 300/100,) 20 x 150 MG & 10 x 100MG tablet therapy packIndications :COVID-19 Take 1 Dose by mouth in the morning and at bedtime. 3 tabs 2 times a day x 5 days. 30 each 01/31/20 25 Discontinued Active Problems Problem Noted Date Diagnosed Date Primary hypertension 10/29/2024 Assessment & Plan (10/29/2024 6:47 PM EDT): Will start on losartan follow up in 1 month on office, oriented to maintain a low sodium diet, exercise as tolerated, keep bp log, target <140/90 Adnexal cyst 08/30/2023 Assessment & Plan (01/16/2024 11:44 AM EDT): Ultrasound resulted in 3.5 cm cyst and a 1.7cm complex cyst vs solid lesion Assessment & Plan (08/30/2023 7:35 PM EDT): Incidental right adnexal cyst, will order a pelvic ultrasound Chronic midline low back pain with right-sided s ciatica 07/26/2023 Assessment & Plan (08/30/2023 7:37 PM EDT): Discussed MRI results, continue conservative management, Assessment & Plan (07/26/2023 11:28 AM EST): Pain has been ongoing for more than 5 years, lately has worsened, she has tried PT without improvement in symptoms, gets better with heating pads, worsens while bending or moving, will order a Mri and refer to ortho. Will provide prednisone and muscle relaxant, continue resting, applying heat/cold, stretch, avoid heavy lifting, no neurologic/red flags. Retained dental root 06/12/2023 Dental caries 06/12/2023 Suicidal ideation 05/09/2023 05/09/2023 Overview (05/09/2023): Hx of self-harming behaviors Constipation 05/09/2023 05/09/2023 Assessment & Plan (03/27/2025 1:35 PM EST): Orders: bisacodyl (Dulcolax) 5 MG EC tablet; Take 1 tablet (5 mg) by mouth if needed each day for constipation. Do not crush, chew, or split. Hepatitis C 05/09/2023 05/09/2023 Assessment & Plan (08/30/2023 7:35 PM EDT): Will refer to hep c team Assessment & Plan (07/26/2023 11:29 AM EST): Will order new labs History of anxiety state 05/09/2023 023 History of varicella as a child 05/09/2023 05/09/2023 Normal cytology findings 05/09/2023 023 Continuous LLQ abdominal pain 04/26/2023 Assessment & Plan (04/26/2023 3:20 PM EST): Persistent LLQ pain, tenderness on palpation, no CVAT or suprapubic pain, will order labs and abdominal CT, recommended to make f/up appt with PCP to address other concerns Depressive disorder 03/30/2022 05/09/2023 Opioid dependence 03/30/2022 05/09/2023 Overview (05/09/2023): Hx of multiple admissions for detox/substance abuse Encounters Date Type Department Care Team Description 03/27/2025 1:00 PM EST Office Visit [facility] [address] [place] [address] Magy Rios MD Left flank pain (Primary Dx); Constipation, unspecified constipation type 03/27/2025 Orders Only [facility] MEDICINE [address] [place] [address] Magy Rios MD 03/27/2025 Telephone [facility] CHC MED & PEDS [address] [place] [address] Colt Barrera MD RV APPT 03/27/2025 Travel 03/27/2025 Telephone [facility] MEDICINE [address] [place] [address] Colt Barrera MD Nurse Triage 2025 1:00 PM EST Office Visit [address] [address] Mable Lafleur MD Chronic hepatitis C without hepatic coma (HCC) (Primary Dx) [address] [address] Mable Lafleur MD 2025 Travel 03/23/2025 Travel 03/21/2025 Telephone [facility] MEDICINE [address] [place] [address] Vanessa Cortes 03/07/2025 1:00 PM EDT Nutrition [facility] DIABETES/NUTRITION [address] [place] [address] Primary hypertension 03/07/2025 Travel 02/21/2025 Telephone [facility] MEDICINE [address] [place] [address] Grisel Chung, PETE 02/13/[address] Nutrition appt 02/05/2025 Patient Outreach [address] [address] Colt Barrera MD Care Management ([facility]- follow up call ) 02/02/2025 Travel 01/30/2025 9:45 AM EDT Telemedicine [facility] MED & PEDS [address] [place] [address] Delphine Taylor MD COVID-19 (Primary Dx) 01/30/2025 Travel 01/30/2025 Telephone [facility] MED & PEDS [address] [place] [address] Colt Barrera MD Nurse Triage 01/29/2025 Patient Outreach [address] [address] Colt Barrera MD Care Coordination ([facility] Christel Oliveros telephone call outreach) 01/17/[address] [address] Colt Barrera MD Referral 01/03/2025 10:00 AM EDT Telemedicine [address] [address] Grisel Chung, sales representative gas service hepatitis C without hepatic coma (CMS/HCC) 01/03/2025 Travel 01/02/2025 Travel 12/27/2024 Patient Outreach [address] [address] Colt Barrera MD Care Coordination ([facility] Christel Oliveros telephone call outreach) from Last 3 Months Immunizations Immunization Administration Dates Next Due Influenza, IIV3, injectable 07/04/2019 Tdap 10/11/2019 Social History Tobacco Use Types Packs/Day Years [...] Orientation Straight 03/21/2022 10 :34 AM EDT Last Filed Vital Signs Vital Sign Reading Time Taken Comments Blood Pressure 129/84 03/27/2025 1:10 PM EST Pulse 81 03/27/2025 1:10 PM EST Temperature 36.1 C (96.9 F) 03/27/2025 1:10 PM EST Respiratory Rate 20 2025 1:02 PM EST Oxygen Saturation 97% 03/27/2025 1:10 PM EST Inhaled Oxygen Concentration - - Weight 92.3 kg (203 lb 6.4 oz) 03/27/2025 1:10 P M EST Height 162.6 cm (5' 4 ) 03/27/2025 1:10 PM EST Body Mass Index 34.91 03/27/2025 1:10 PM EST Plan of Treatment Upcoming Encounters Date Type Department Care Team (Late st Contact Info) Description 04/14/2025 10:00 AM EST Clinical Support [facility] DIABETES/NUTRITION [address] [place], [place] [phone] Olinda Ku, ANDERSON [address] [place], [place] [phone] Health Maintenance Due Date Last Done Comments Lipid Panel 1986 Family Planning (PISQ) 2001 HPV Vaccines (1 - 3-dose series) 2001 Hepatitis A Vaccines (1 of 2 - Risk 2-dose series) 2005 Hepatitis B Vaccines (1 of 3 - 19+ 3-dose series) 2005 Pneumococcal Vaccine: Pediatrics (0 to 5 Years) and At-Risk Patients (6 to 49) Years (1 of 2 - PCV) 2005 Dental Oral Exam 02/20/2019 08/20/2018 Dental Prophylaxis 06/22/2019 12/19/2018 Dental X-Ray: Bitewings 08/22/2019 08/21/19 19, 07/03/2018 Cervical Cancer Screening 02/23/2021 HPV/Cotest 02/23/2021 07/04/2019 Pap Smear 02/23/2021 07/04/2019 COVID-19 Vaccine (3 - 2024-2 6 season) 2025 07/24/2020, 06/20/2020 Influenza Vaccine (#1) 2025 07/04/2019 SDOH Screening 09/05/2025 09/05/2024 Alcohol/Substance Use Screening 10/28/2025 10/28/2024 Disability Screening 01/02/2026 01/02/2025 Depression Screening 2026 2025, 2025 Tobacco Screening 03/27/2026 03/27/2025 Dental X-Ray: Full Mouth 06/13/2026 024, 08/20/2018 DTaP/Tdap/Td Vaccines (2 - T d or Tdap) 10/10/2029 10/11/2019 Zoster Vaccines (1 of 2) 2036 RSV Patients and Patients Aged 60 years or older (1 - 1-dose 75+ series) 2061 HIV Screening Completed 12/10/2024, 09/11/2023, 06/14/2019 HIB Vaccines Aged Out No longer eligi ble based on patient's age to complete this topic IPV Vaccines Aged Out No longer eligi ble based on patient's age to complete this topic Meningococcal B Vaccine Aged Out No l onger eligible based on patient's age to complete this topic Meningococcal Vaccine Aged Out No donavan janette eligible based on patient's age to complete this topic RSV under 20 months Aged Out No longe r eligible based on patient's age to complete this topic Rotavirus Vaccines Aged Out No longer eligible based on patient's age to complete this topic Procedures Procedure Name Priority Date/Time Associated Diagnosis Comments URINALYSIS, COMPLETE, WITH REFLEX TO CULTURE Routine 03/27/2025 1:55 PM EST POCT URINALYSIS DIPSTICK Routine 03/27/2025 1:45 PM EST Left flank pain POCT , URINE Routine 03/27/2025 1:38 PM EST Left flank pain HIV 1/2 ANTIGEN/ANTIBODY, FOURTH GENERATION W/RFL Routine 12/10/2024 9:01 AM EDT PANORAMIC RADIOGRAPHIC IMAGE Routine 06/12/2023 11:30 AM EST HM PAP/HPV Routine 07/04/2019 PROPHYLAXIS - ADULT Routine 12/19/2018 1 2:00 AM EDT INTRAORAL - COMPLETE SERIES OF RADIOGRAPHIC IMAGES Routine 08/20/2018 12:00 AM EDT COMPREHENSIVE ORAL EVALUATION - NEW OR ESTABLISHED PATIENT Routine 08/20/2018 12:00 AM EDT from Last 3 Months or Most Recently Relevant to Health Maintenance Results * POCT Urinalysis (03/27/2025 1:45 PM EST) Color, UA Yellow Clarity, UA Clear Glucose, UA Negative Bilirubin, UA Trace Comment:small Ketones, UA Negative Spec Grav, UA 1.025 Blood, UA Negative Negative, None Detected pH, UA 7.0 Protein, UA Negative Urobilinogen, UA >=8.0 Leukocytes, UA Negative Negative, Rare, Trace Nitrite, UA Negative Negative, None Detected QC Media Lot # [id number] Lot# Expiration Date ,350 Urine (Urine, Random) 03/27/2025 1:45 PM EST Magy Rios MD POINT OF CARE TEST ENTER/E DIT ORDERABLES Final Result * POCT Urine (03/27/2025 1:38 PM EST) Pathologist [facility] Preg Test, Ur Negative Negative, Indeterminate, None Detected, Invalid, Specimen unsatisfactory for evaluation, Weakly Positive, 2+ QC Media Lot # [id number] Lot# Expiration Date 55, Urine 03/27/2025 1:38 PM EST Magy Rios MD POINT OF CARE TEST ENTER/E DIT ORDERABLES Edited Result - Final * HIV-1/2 Antigen and Antibodies, Fourth Generation, with Reflexes (12/10/2024 9:01 AM EDT) Pathologist [facility] HIV AB/AG Nonreactive Nonreactive [facility] Comment:HIV-1 p24 Ag and/or HIV-1/HIV-2 Ab not detected.A test result that is nonreactive does not exclude thepossibility of exposure to or infection with HIV-1 and/orHIV-2. Nonreactive results in this assay for individualswith prior exposure to HIV-1 and/or HIV-2 may be due toantigen and antibody levels that are below the limit ofdetection of this assay.The [employer] HIV Ag/Ab Combo assay result andsupplemental assay results should be interpreted inconjunction with the patient's clinical presentation,history and other laboratory results. If the results areinconsistent with clinical evidence, additional testing issuggested to confirm the result. 12/10/2024 9:01 AM EDT 12/10/2024 2:03 PM EDT Colt Lombardi MD LAB BLOOD ORDERABL ES Final Result [facility] [address] [place] [address] [phone] * (ABNORMAL) Pap Smear (07/04/2019) Pap Epithelial cell abnormality(A ) Negative for intraephithelial lesion or malignancy, Other Comment:ASCUS HPV Detected(A) Undetected, Indeterminate, Quantitative, Not Detected Historical Provider HEALTH MAINTENANCE Final Result from Last 3 Months or Most Recently Relevant to Health Maintenance Insurance [facility] C3 DENTAL-[facility] MEDICAID STAND ADULT Care Teams Sheet Rocker Relationship Specialty Start Date End Date Colt Barrera MD [address] [place] [phone] PCP - General Internal Medicine 07/19/19 Leslye cSott Quarry BossRadiotelegraph Operator Servicer 09/01/23
--- OUTSIDE RECORDS SUMMARY | 2025-03-27 18:53 | XMS_ITS | Encounter Summary ---
Author Organization [employer] Address [address] [place] [address] 7t [place] [address] Care Team Providers Care American Sign Language Teacher Name Role Phone Colt Barrera MD Primary Care Prov ider Encounter Details Date Type Department Care Team (Latest Contact Info) Description 03/23/2025 Travel Social History Tobacco Use Types Packs/Day [...] Support [facility] DIABETES/NUTRITION [address] [place] [address] [place] [address] documented as of this encounter Visit Diagnoses Not on filedocumented in this encounter Additional Health Concerns Assessment Noted Time PHQ-9 Depression Total Score: 18 025 10:49 AM EDT documented as of this encounter Care Teams American Sign Language Teacher Relationship Specialty Start Date End Date Colt Barrera MD [address] [place] [address] PCP - General Internal Medicine 07/19/19 Leslye Scott Emergency ManGas Plant Operator 09/01/23 documented as of this encounter
--- OUTSIDE RECORDS SUMMARY | 2025-03-27 18:53 | XMS_ITS | Encounter Summary ---
Author Organization [employer] Address [address] [facility] [address] [place] [address] Care Team Providers Care Meal Temperer Name Role Phone Colt Barrera MD Primary Care Prov ider Encounter Details Date Type Department Care Team (Latest Contact Info) Description 03/27/2025 Travel Social History Tobacco Use Types Packs/Day [...] Description 04/14/2025 10:00 AM EST Clinical Support [facility]NU[facility] [address] [place] [address] [place] [address] documented as of this encounter Visit Diagnoses Not on filedocumented in this encounter Additional Health Concerns Assessment Noted Time PHQ-9 Depression Total Score: 0 03/24/20 25 1:03 PM EST documented as of this encounter Care Teams Meal Temperer Relationship Specialty Start Date End Date Colt Barrera MD [address] [place] [id number] PCP - General Internal Medicine 07/19/19 Leslye Scott Cotton Ginner HelperMachine Operator Picker 09/01/23 documented as of this encounter
[2025-03-27 19:20] LABS: UACC Culture Trigger YES
== END 2025-03-27 18:00 | disposition home or self-care (01) ==
LOC: HO.HHCLNP 17:59
PROVIDERS: Visit Provider Family Medicine
DX: R10.A2 Flank pain, left side (principal)
CPT/HCPCS: 81001; 87086